=== PATIENT | female | born 1970 | race Caucasian/White ===

== ENCOUNTER 2016-08-19 16:38 | Observation (INO) ==
[2016-08-19 22:09] LABS: Lymphocytes % 23.8 %
[2016-08-19 22:10] LABS: Basophils % 0.5 %; Eosinophils # 0.2 K/mcL (0.0-0.6); Eosinophils % 2.6 %; Immature Granulocytes % 0.2 % (0-4); Lymphocytes # 2.1 K/mcL (0.6-4.6); Mean Corpuscular HGB Conc 26.9 g/dL (31.6-35.5); Mean Platelet Volume 9.6 fL (9.4-12.4); Monocytes # 0.7 K/mcL (0.0-1.3); Neutrophils # 5.7 K/mcL (1.6-8.9); Platelet Count 320 K/mcL (140-400); Red Blood Count 3.88 M/mcL (3.82-4.97); Red Cell Distribution Width 18.7 % (11.5-14.5); Segmented Neutrophils % 64.9 %
[2016-08-19 22:13] LABS: INR 1.3; Prothrombin Time 13.7 Seconds (9.4-12.1)
[2016-08-19 22:15] LABS: Activated Partial Thrombo Time 27.6 Seconds (26.0-36.0)
[2016-08-19 22:23] LABS: BUN/Creatinine Ratio 12 (6-26); Blood Urea Nitrogen 10 mg/dL (7-20); Calcium 8.6 mg/dL (8.6-10.8); Carbon Dioxide 21 mEq/L (19-29); Chloride 108 mEq/L (98-109); Glucose 117 mg/dL (70-99); Osmolality,Calculated 286 (280-300); Potassium 3.5 mEq/L (3.5-4.5); Sodium 138 mEq/L (136-145); eGFR For African Americans > 60 (> 60); eGFR For Non-African Americans > 60 (> 60)
[2016-08-19 22:26] LABS: Bilirubin,Urine Small (Negative); Blood,Urine Small (Negative); Clarity,Urine Clear (Clear); Color,Urine Dark Yellow (Yellow); Glucose,Urine (UA) Normal (Normal); Ketones,Urine Negative (Negative); Leukocyte Esterase,Urine Negative (Negative); Nitrite,Urine Negative (Negative); PH,Urine 5.5 pH Units (5.0-8.0); Protein,Urine Trace mg/dL (Neg-Trace); Urobilinogen,Urine Normal (Normal)
[2016-08-19 22:29] LABS: Bacteria,Urine None Seen per hpf (None-Few); Hyaline Casts,Urine None Seen per lpf (None-Few); RBC,Urine 0-3 per hpf (0-3); Squamous Epithelial Cell,Urine Many per lpf (None-Few); WBC,Urine 0-3 per hpf (0-3)
[2016-08-19 22:37] LABS: Amphetamine Screen,Urine Negative ng/mL (Cutoff=1000); Barbiturate Screen,Urine Negative ng/mL (Cutoff=200); Benzodiazepines Screen,Urine Negative ng/mL (Cutoff=200); Cannabinoid Screen,Urine Negative ng/mL (Cutoff = 50); Cocaine Screen,Urine Negative ng/mL (Cutoff= 300); Opiate Screen,Urine Negative ng/mL (Cutoff=300); Phencyclidine Screen,Urine Negative ng/mL (Cutoff=25)
--- NOTE | 2016-08-19 22:37 | Emergency Department Note ---
Disposition Clinical Impression: Left-sided weakness Transient cerebral ischemia Qualifiers: Transient cerebral ischemia type: unspecified Qualified Code(s): G45.9 - Transient cerebral ischemic attack, unspecified Disposition: Admitted As Inpatient Referrals: NO,PCP [Primary Care Provider] - Forms: ED Satisfaction Letter Neuro HPI - General Chief Complaint: ED Neuro Symptoms/Deficit Stated Complaint: left side weakness Time Seen by Provider: 08/19/16 20:59 Source: patient, family Limitations: physical limitation Nursing Notes Reviewed: Yes Vital Signs Reviewed: Yes - History of Present Illness HPI Narrative: She is a 45-year-old female who was seen here several days ago they activated stroke alert [facility] neurology was involved. They state she had atypical symptoms of a stroke did not recommend TPA. Patient's symptoms resolved she left AGAINST MEDICAL ADVICE. She states today she was working at [employer] and cannot lift up a bucket of 24 pieces of chicken. She was unable to perform her work without physical limitations so she came back in to be evaluated again. She states her left arm weakness has never resolved since she left the ER over 48 hours ago. She did not have any deficits in her face or in her left lower extremity Location: left arm History of same: Yes Severity: mild Quality: weakness Symptoms Improving: No Context: gradual onset (2 days ago) On Anticoagulants: No Associated symptoms: Reports: denies other symptoms Treatments Prior to Arrival: none - Related Data Home Medications: Previous Rx's Medication Instructions Recorded Cefdinir [Omnicef] 300 mg PO BID #20 capsule 07/17/16 Allergies/Adverse Reactions: Allergies Allergy/AdvReac Type Severity Reaction Status Date / Time Penicillins Allergy Hives Verified 08/19/16 17:00 All systems ED: reviewed and negative except as stated. Constitutional: Denies: fever, chills Cardiovascular: Denies: chest pain, palpitations, dyspnea on exertion Respiratory: Denies: cough, dyspnea, wheezes Gastrointestinal: Denies: abdominal pain, nausea Past Medical History - Past Medical History Medical history: Reports: GERD Psychiatric history: Reports: no psych history GENERAL [place] history: Reports: no GENERAL [place] history - Social History Smoking Status: Current every day smoker Smokeless Tobacco Status: No Alcohol use: Reports: none Drug use: Reports: none Physical Exam - General Limitations: physical limitation General appearance: alert, in no apparent distress - Head Head exam: atraumatic, normocephalic, normal inspection - Eye Eye exam: Present: normal appearance, PERRL, EOMI - ENT ENT exam: normal exam, normal oropharynx, mucous membranes moist - Neck Neck exam: Present: normal inspection, full ROM, trachea midline - Chest Chest inspection: Present: normal inspection, symmetric chest wall rise - Respiratory Respiratory exam: Present: normal lung sounds bilaterally - Cardiovascular Cardiovascular exam: Present: regular rate, normal rhythm, normal heart sounds - Abdominal Exam Abdominal exam: Present: soft, Non-Tender. Absent: tenderness, distention, guarding, rebound, rigidity - Neurological Exam Neurological exam: Present: alert, oriented X3, CN II-XII intact, normal gait - Expanded Neurological Exam Patient oriented to: Present: person, place, time Cerebellar function: normal gait Motor strength - LUE: 4/5 Sensory exam upper extremity: light touch: Normal Sensory exam lower extremity: light touch: Normal DTR: brachioradialis (L): 2+, brachioradialis (R): 2+ Coma Scale Eye Opening: Spontaneous Coma Scale Motor Response: Obeys Commands Coma Scale Verbal Response: Oriented Coma Scale Total: 15 - Psychiatric Psychiatric exam: Present: normal affect, normal mood - Skin Skin exam: Present: warm, dry, intact, normal color Course Vital Signs Temperature 98.0 F 08/19/16 17:00 Pulse Rate 97 08/19/16 17:00 Respiratory Rate 18 08/19/16 17:00 Blood Pressure 133/83 08/19/16 17:00 O2 Sat by Pulse Oximetry 100 08/19/16 17:00 Temperature 98.0 F 08/19/16 17:00 Pulse Rate 97 08/19/16 17:00 Respiratory Rate 18 08/19/16 17:00 Blood Pressure 133/83 08/19/16 17:00 O2 Sat by Pulse Oximetry 100 08/19/16 17:00 Oxygen Delivery Oxygen Delivery Room Air Neuro Symptoms/Deficit - Differential Diagnosis Likely: cerebrovascular accident, subarachnoid hemorrhage, transient cerebral ischemia, peripheral neuropathy, convulsions - Medical Records Medical records reviewed: Yes I reviewed the patient's medical records. - Lab Data Lab results reviewed: Yes I reviewed the patient's lab results. Result diagrams: 08/19/16 21:48 08/19/16 21:48 Lab Results 03/06/17 03/06/17 03/06/17 Range/Units 21:34 21:48 21:48 WBC 8.7 (4.3-11.1) K/mcL RBC 3.88 (3.82-4.97) M/mcL Hgb 7.0 L (11.5-15.4) g/dL Hct 26.0 L (35.3-44.9) % MCV 67.0 L (83.0-100.0) fL MCH 18.0 L (28.0-33.3) pg MCHC 26.9 L (31.6-35.5) g/dL RDW 18.7 H (11.5-14.5) % Plt Count 320 (140-400) K/mcL MPV 9.6 (9.4-12.4) fL Immature Gran % 0.2 (0-4) % Seg Neutrophils % 64.9 % Lymphocytes % 23.8 % Monocytes % 8.0 % Eosinophils % 2.6 % Basophils % 0.5 % Neutrophils # 5.7 (1.6-8.9) K/mcL Lymphocytes # 2.1 (0.6-4.6) K/mcL Monocytes # 0.7 (0.0-1.3) K/mcL Eosinophils # 0.2 (0.0-0.6) K/mcL Basophils # 0.0 (0.0-0.2) K/mcL Platelet Estimate Normal (Normal) Hypochromasia Present A (Not Present) Anisocytosis 2+ A (Not Present) Microcytosis Present A (Not Present) PT 13.7 H (9.4-12.1) Seconds INR 1.3 APTT 27.6 (26.0-36.0) Seconds Sodium (136-145) mEq/L Potassium (3.5-4.5) mEq/L Chloride (98-109) mEq/L Carbon Dioxide (19-29) mEq/L BUN (7-20) mg/dL Creatinine (0.57-1.11) mg/dL Est GFR ( Amer) (> 60) Est GFR (Non-Af Amer) (> 60) BUN/Creatinine Ratio (6-26) Glucose (70-99) mg/dL POC Glucose 164 H (58-89) Calculated Osmolality (280-300) Calcium (8.6-10.8) mg/dL Troponin I (0-0.03) ng/mL Urine Color (Yellow) Urine Clarity (Clear) Urine pH (5.0-8.0) pH Units Ur Specific [place] (1.010-1.025) Urine Protein (Neg-Trace) mg/dL Urine Glucose (UA) (Normal) mg/dL Urine Ketones (Negative) mg/dL Urine Blood (Negative) Urine Nitrite (Negative) Urine Bilirubin (Negative) Urine Urobilinogen (Normal) mg/dL Ur Leukocyte Esterase (Negative) Urine Microscopic RBC (0-3) per hpf Urine Microscopic WBC (0-3) per hpf Ur Squamous Epith Cells (None-Few) per lpf Urine Bacteria (None-Few) per hpf Hyaline Casts (None-Few) per lpf Ur Culture Indicated? (NO) Urine Opiates Screen (Blxqcs=481) ng/mL Ur Barbiturates Screen (Jrquvo=956) ng/mL Ur Phencyclidine Scrn (Cutoff=25) ng/mL Ur Amphetamines Screen (Stcrfp=1551) ng/mL U Benzodiazepines Scrn (Bvuuip=311) ng/mL Urine Cocaine Screen (Cutoff= 300) ng/mL U Marijuana (THC) Screen (Cutoff = 50) ng/mL 08/19/16 08/19/16 08/19/16 Range/Units 21:48 21:48 22:17 WBC (4.3-11.1) K/mcL RBC (3.82-4.97) M/mcL Hgb (11.5-15.4) g/dL Hct (35.3-44.9) % MCV (83.0-100.0) fL MCH (28.0-33.3) pg MCHC (31.6-35.5) g/dL RDW (11.5-14.5) % Plt Count (140-400) K/mcL MPV (9.4-12.4) fL Immature Gran % (0-4) % Seg Neutrophils % % Lymphocytes % % Monocytes % % Eosinophils % % Basophils % % Neutrophils # (1.6-8.9) K/mcL Lymphocytes # (0.6-4.6) K/mcL Monocytes # (0.0-1.3) K/mcL Eosinophils # (0.0-0.6) K/mcL Basophils # (0.0-0.2) K/mcL Platelet Estimate (Normal) Hypochromasia (Not Present) Anisocytosis (Not Present) Microcytosis (Not Present) PT (9.4-12.1) Seconds INR APTT (26.0-36.0) Seconds Sodium 138 (136-145) mEq/L Potassium 3.5 (3.5-4.5) mEq/L Chloride 108 (98-109) mEq/L Carbon Dioxide 21 (19-29) mEq/L BUN 10 (7-20) mg/dL Creatinine 0.84 (0.57-1.11) mg/dL Est GFR ( Amer) > 60 (> 60) Est GFR (Non-Af Amer) > 60 (> 60) BUN/Creatinine Ratio 12 (6-26) Glucose 117 H (70-99) mg/dL POC Glucose (58-89) Calculated Osmolality 286 (280-300) Calcium 8.6 (8.6-10.8) mg/dL Troponin I 0.00 (0-0.03) ng/mL Urine Color (Yellow) Urine Clarity (Clear) Urine pH (5.0-8.0) pH Units Ur Specific [place] (1.010-1.025) Urine Protein (Neg-Trace) mg/dL Urine Glucose (UA) (Normal) mg/dL Urine Ketones (Negative) mg/dL Urine Blood (Negative) Urine Nitrite (Negative) Urine Bilirubin (Negative) Urine Urobilinogen (Normal) mg/dL Ur Leukocyte Esterase (Negative) Urine Microscopic RBC (0-3) per hpf Urine Microscopic WBC (0-3) per hpf Ur Squamous Epith Cells (None-Few) per lpf Urine Bacteria (None-Few) per hpf Hyaline Casts (None-Few) per lpf Ur Culture Indicated? (NO) Urine Opiates Screen Negative (Oyuvvd=117) ng/mL Ur Barbiturates Screen Negative (Jbszyi=678) ng/mL Ur Phencyclidine Scrn Negative (Cutoff=25) ng/mL Ur Amphetamines Screen Negative (Tusrfj=3240) ng/mL U Benzodiazepines Scrn Negative (Mhomkb=768) ng/mL Urine Cocaine Screen Negative (Cutoff= 300) ng/mL U Marijuana (THC) Screen Negative (Cutoff = 50) ng/mL 08/19/16 Range/Units 22:21 WBC (4.3-11.1) K/mcL RBC (3.82-4.97) M/mcL Hgb (11.5-15.4) g/dL Hct (35.3-44.9) % MCV (83.0-100.0) fL MCH (28.0-33.3) pg MCHC (31.6-35.5) g/dL RDW (11.5-14.5) % Plt Count (140-400) K/mcL MPV (9.4-12.4) fL Immature Gran % (0-4) % Seg Neutrophils % % Lymphocytes % % Monocytes % % Eosinophils % % Basophils % % Neutrophils # (1.6-8.9) K/mcL Lymphocytes # (0.6-4.6) K/mcL Monocytes # (0.0-1.3) K/mcL Eosinophils # (0.0-0.6) K/mcL Basophils # (0.0-0.2) K/mcL Platelet Estimate (Normal) Hypochromasia (Not Present) Anisocytosis (Not Present) Microcytosis (Not Present) PT (9.4-12.1) Seconds INR APTT (26.0-36.0) Seconds Sodium (136-145) mEq/L Potassium (3.5-4.5) mEq/L Chloride (98-109) mEq/L Carbon Dioxide (19-29) mEq/L BUN (7-20) mg/dL Creatinine (0.57-1.11) mg/dL Est GFR ( Amer) (> 60) Est GFR (Non-Af Amer) (> 60) BUN/Creatinine Ratio (6-26) Glucose (70-99) mg/dL POC Glucose (58-89) Calculated Osmolality (280-300) Calcium (8.6-10.8) mg/dL Troponin I (0-0.03) ng/mL Urine Color Dark Yellow (Yellow) Urine Clarity Clear (Clear) Urine pH 5.5 (5.0-8.0) pH Units Ur Specific [place] 1.030 H (1.010-1.025) Urine Protein Trace (Neg-Trace) mg/dL Urine Glucose (UA) Normal (Normal) mg/dL Urine Ketones Negative (Negative) mg/dL Urine Blood Small H (Negative) Urine Nitrite Negative (Negative) Urine Bilirubin Small H (Negative) Urine Urobilinogen Normal (Normal) mg/dL Ur Leukocyte Esterase Negative (Negative) Urine Microscopic RBC 0-3 (0-3) per hpf Urine Microscopic WBC 0-3 (0-3) per hpf Ur Squamous Epith Cells Many H (None-Few) per lpf Urine Bacteria None Seen (None-Few) per hpf Hyaline Casts None Seen (None-Few) per lpf Ur Culture Indicated? NO (NO) Urine Opiates Screen (Gxqgpq=750) ng/mL Ur Barbiturates Screen (Mgqtyr=252) ng/mL Ur Phencyclidine Scrn (Cutoff=25) ng/mL Ur Amphetamines Screen (Hsdsek=0620) ng/mL U Benzodiazepines Scrn (Ohzdxn=246) ng/mL Urine Cocaine Screen (Cutoff= 300) ng/mL U Marijuana (THC) Screen (Cutoff = 50) ng/mL - Radiology Data Radiology results reviewed: Yes I reviewed the patient's radiology results. - EKG Data EKG attestation: Yes I reviewed and interpreted this EKG. EKG shows normal: sinus rhythm Rate: normal Rhythm: NSR [place]/QRS: normal Interpretation: no acute changes TPA Checklist - LKW: 3-4.5 hrs Add. Contraindications Patient/family understanding: The patient/family members have been counseled and understood the risk, benefit , and alternatives of treatment.
[2016-08-19 22:44] LABS: Hypochromasia Present (Not Present)
[2016-08-19 22:47] LABS: Anisocytosis 2+ (Not Present); Microcytosis Present (Not Present); Platelet Estimate Normal (Normal)
[2016-08-19] MEDS ORDERED: Aspirin 325 MG TABLET PO ONE (23:05)
[2016-08-19 23:17] LABS: % Iron Saturation 3 % (15-50); Iron 11 mcg/dL (50-170); Transferrin 305 mg/dL (180-382)
[2016-08-20] MEDS ORDERED: *HR* Morphine 2 MG/ML SYRINGE IVP PRN (00:56)
[2016-08-20] MEDS ORDERED: *HR* OxyCODONE Immed Rel 5 MG TABLET PO PRN (00:56)
[2016-08-20] MEDS ORDERED: *HR* Promethazine 25 MG/ML VIAL IVP PRN (00:56)
[2016-08-20] MEDS ORDERED: Acetaminophen 325 MG TABLET PO PRN (00:56)
[2016-08-20] MEDS ORDERED: Naloxone 0.4 MG/ML INJ IVP PRN (00:56)
[2016-08-20] MEDS ORDERED: 0.9 % Sodium Chloride 1,000 ML IVC SCH (01:00)
[2016-08-20] MEDS ORDERED: Benzonatate 100 MG CAPSULE PO PRN (01:13)
[2016-08-20] MEDS ORDERED: Ipratropium/Albuterol Neb 3 ML IH PRN (01:13)
--- NOTE | 2016-08-20 01:20 | Internal Med History&Physical ---
Date of Encounter: 08/20/16 Time of Encounter: 01:00 Assessment and Plan (1) Focal neurological deficit, onset greater than 24 hours Current visit: Yes Status: Acute . (2) Microcytic hypochromic anemia Current visit: Yes Status: Acute . (3) Iron deficiency Current visit: Yes Status: Acute . (4) H/O gastroesophageal reflux (GERD) Current visit: Yes Status: Chronic . (5) Nicotine dependence with nicotine-induced disorder Current visit: Yes Status: Chronic . Qualifiers: Nicotine product type: cigarettes Qualified Code(s): F17.219 - Nicotine dependence, cigarettes, with unspecified nicotine-induced disorders (6) Symptomatic anemia Current visit: Yes Status: Acute . (7) Stroke determined by clinical assessment Current visit: Yes Status: Acute . (8) Left-sided weakness Current visit: Yes Status: Acute . (9) Menstrual bleeding problem Current visit: Yes Status: Chronic .. (10) Chronic blood loss anemia Current visit: Yes Status: Chronic . (11) Conversion disorder with abnormal movement Current visit: Yes Status: Acute . (12) Transient cerebral ischemia Current visit: Yes Status: Acute . Qualifiers: Transient cerebral ischemia type: unspecified Qualified Code(s): G45.9 - Transient cerebral ischemic attack, unspecified (13) Hirsutism Current visit: Yes Status: Chronic . Internal Medicine - H&P: HPI Chief complaint: Left-sided weakness Admitted From: Emergency Dept Plans for Post Hospital Care: Home History of present illness: Ms. Woods is a 45 year old female with significant history of irregular menses, iron deficiency, anemia , GERD, nicotine dependency. The patient was visited and interviewed and examined. The patient is admitted to [facility] via emergency department when she presents to the [employer] [facility] [employer] with complaints of left-sided weakness. The patient presented first on August 18 with similar complaints, so she came back to the emergency department once again be evaluated. She clarified that indeed her left arm weakness from the night before it never fully resolved since she left the emergency department 48 hours earlier. She denied any progression of deficits to involve her head face neck OR opposite extremity. Reported her gait was affected due to tracking of her left leg. She denied any associated fevers chills or sweats with these symptoms. Denied any neck pain headache. Denied any bowel or bladder dysfunction. On August 18 with similar complaints, at that time her presentation activated stroke alert which involved [facility] neurology department. Her symptoms and findings were felt to be atypical of stroke. Therefore TPA was not recommended. He was recommended that the patient be admitted to complete stroke evaluation to include MRI studies. However the patient left AGAINST MEDICAL ADVICE stating that her symptoms had resolved spontaneously. The next day while at work she found that she was unable to lift a bucket of chicken pieces numbering 24 with her left arm. 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 Findings in the ED: Temperature 98.7 respirations 18. BP 133/83. O2 saturation 100% room air. WBC 8.7 hemoglobin 7 platelets 320,000. MCV 67 and MCH 18 MCHC 26.9. RDW 18.7. Differential normal. PT 13.7 INR 1.3 PTT 27.6. Metabolic panel normal. BUN 10 creatinine 0.84. Glucose 117 osmolality 286. Troponin 0.00. Urine drug screen negative. Urinalysis trace protein. Small blood. Small bilirubin. 3 RBC. 3 WBC. Many epithelial cells. Specific gravity greater than 1.03. EKG normal sinus rhythm. No acute ischemic changes CT cervical spine without contrast demonstrated no acute osseous abnormality. Mild left C4 bony neural foraminal narrowing secondary to uncovertebral hypertrophy. Incidental 5 mm hypodense right thyroid nodule noted. CT head scan without contrast demonstrated no acute intracranial abnormality. No evidence for acute infarct, hydrocephalus, hemorrhage, mass effect, midline shift or fluid collection. Orbits, soft tissue and skull benign. Mild left ethmoid mucoperiosteal thickening seen. No layering fluid noted. Mastoid air cells clear. Preliminary impressions suggest concern for this patient of possible CVA/TIA versus demyelinating process versus cervical radiculomyelopathy. However her examination was not consistent with a DOCUMENT REVIEWER lesion with some degree of histrionics apparent. Initial screening studies for most part benign except for significant microcytic hypochromic anemia likely due to long-standing iron deficiency and acute on chronic blood loss. The patient acknowledges history of long-standing anemia and severe irregular menstruation. She has not undergone any comprehensible evaluation or interventions for either issue. Not aware of any inherited bleeding /clotting disorder or family history of such. She will complete a standard rule out for CVA/TIA with appropriate radiographic studies and possible consultants review. The patient has been offered initial intervention for her severe anemia which may include transfusion therapy of packed red blood cells and possibly iron infusion to address the chronic fatigue that may be related to this. The patient remains at risk for further acute clinical decline given that this presenting chief complaint, findings and comorbidities. Workup and treatments will progress comprehensively. Cumulative laboratory and radiographic data base was reviewed, considered and discussed. Pertinent ancillary medical records including ECW and PCI documentation was reviewed and considered. Given the patient's presenting concerns, past medical history, clinical findings and symptoms, she is admitted at this time will undergo further evaluation and disposition. Orders were written as per the computerized physician field recorder system.......................................................................... .................... Consultative opinions will be sought as clinical circumstances justify. Pain management needs will be addressed. Laboratory and radiographic data base will be updated as appropriate. Studies include: PT/INR, APTT, Ddimer, hypercoag panel, UDS, UA, serum HCG, CASSIUS, RF, cardiac injury panel, BNP, CPK, metabolic and hematologic panel, mag, phos, ionized calcium, thyroid panel, lipid profile, A1c, C-pep, CRP, sed rate, blood gas, lactic acid, iron studies, B12, folate, MMA, serologies, etc. Precautions: Aspiration, fall, delirium protocol/surveillance initiated. Telemetry with continuous hemodynamic monitoring and pulse oximetry initiated. Orthostatic vital signs. Empiric antibiotic coverage: pending diagnostics/culture data. Special studies: CT head, CT cervical spine, MRI brain, MRA head and neck, chest x-ray, telemetry, EKG, echocardiogram. Pulmonary toilet: Incentive spirometry. Aerosol bronchodilator, mucolytic, antitussivePRN. Supplemental oxygen. Corticosteroid therapyPRN. CPAP/BiPAP supplemental oxygen deliveryPRN. Aerosol Mucomyst therapyPRN. Fluid and electrolyte repletion efforts will proceed. Careful attention to fluid balance and renal recovery will be emphasized. Avoidance of nephrotoxic exposure and adverse drug drug interaction in the setting of impaired renal function will be monitored closely. Acute coronary syndrome protocol/surveillance initiated. Acute DOCUMENT REVIEWER injury protocol/surveillance initiated. Includes: aspirin, statin. Passive allowance for hypertension and in completion of CVA/TIA workup. Correction of metabolic, electrolyte and acid-base deficits. Swallowing evaluation. Neurologic assessments. NIHSS guidelines. DVT and PUD prophylaxis initiated: PPI therapy, intermittent pneumatic cuffs/ TEDs. Subcutaneous heparin. Early ambulation will be encouraged. Immunization updates recommended. Influenza and pneumococcal vaccinations as part of ongoing preventative healthcare recommendations strongly recommended. Smoking cessation counseling briefly addressed. Patient sepsis nicotine substitution during this hospitalization.. Advanced care directive discussion briefly addressed. Patient does not declare any healthcare restrictions at this time. Cardiovascular risk appraisal and cardiovascular risk reduction efforts will be emphasized. Physical and occupational therapy consulted to evaluate/assess patient's functional capacity and progress mobility as her circumstances permit. Nutrition/dietary education counseling may be considered as circumstances justify. Outpatient medication schedules will be reviewed, confirmed and facilitated as appropriate. Reconciliation of home treatments including adjustments, substitutions and reintroduction into the treatment regimen will address necessary maintenance therapies for chronic pre-existing medical conditions. Plan of care has been reviewed and discussed in detail with the patient. Questions addressed. Hospital course dictated by clinical findings, treatment response and potential consultative interventions. Patient is at low risk for further acute clinical decline due to her presenting chief complaints, findings and comorbid conditions. Condition is serious. Prognosis is guarded. CODE STATUS is full. Past Med Surg Social Fam HX - Past Medical History Source: old records reviewed Medical history: arthritis, GERD (h/o gastric ulcer. 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 irregular and heavy menses w/ clots.) Psychiatric history: no psych history - Past Surgical History Surgical History: , other - Social History Smoking Status: Current every day smoker Packs per day: 1 ppd Smokeless Tobacco Status: No Alcohol use: none Drug use: none Occupational status: employed Current living situation: With Family Activity Level: Independent ambulation, Mostly sedentary Recent Out of Country Travel Within the Last 8 Weeks: No Exposure or Possible Exposure to Illness During Travel: No Internal Medicine - H&P: Meds Ranitidine HCl [Zantac 75] 75 mg PO DAILY 08/20/16 [History] Allergies Penicillins Allergy (Verified 08/19/16 17:00) Hives All Systems PM: A 10-system review of systems was performed and is negative for pertinent findings except as documented above in the HPI. - Constitutional Constitutional: as per HPI, malaise, other, no chills, no fever(s), no night sweats - EENT Eyes: as per HPI, no change in vision, no discharge, no pain, no photophobia Ears: as per HPI, no ear discharge, no ear pain, no tinnitus Nose, mouth and throat: as per HPI, no dysphagia, no nasal discharge, no neck pain, no sore throat - Cardiovascular Cardiovascular ROS IM: as per HPI, no chest pain, no diaphoresis, no dyspnea, no lightheadedness, no palpitations, no syncope - Respiratory Respiratory: as per HPI, no cough, no dyspnea, no wheezing, no excessive phlegm production - Gastrointestinal Gastrointestinal: as per HPI, no abdominal pain, no diarrhea, no hematemesis, no hematochezia, no melena, no nausea, no vomiting - Genitourinary Genitourinary: as per HPI, abnormal menses, other, no change in urinary stream, no dysuria, no flank pain, no hematuria Menstruation: as per HPI, currently menstrual, cycle variable, menses variable, period heavy, other - Musculoskeletal Musculoskeletal ROS IM: as per HPI, no numbness, no tingling - Integumentary Integumentary IM: as per HPI, no rash, no unusual bruising - Neurological Neurological ROS: as per HPI, abnormal gait, focal weakness, other, no confusion , no convulsions, no numbness, no tingling, no tremor(s) - Psychiatric Psychiatric: as per HPI - Endocrine Endocrine IM: as per HPI - Hematologic/Lymphatic Hematologic/Lymphatic: as per HPI, no easy bruising - Allergic/Immunologic Allergic/Immunologic: as per HPI - Constitutional Vitals: Temp Pulse Resp BP Pulse Ox 98.0 F 73 14 129/92 100 08/19/16 17:00 08/19/16 23:27 08/20/16 00:36 08/20/16 00:36 08/19/16 17:00 General appearance: Present: disheveled, mild distress, A&O X 3, obese, answers questions appropriately - Head Head exam: Present: atraumatic, normocephalic - Eye Eye exam: Present: EOMI, PERRL, conjuntiva pink, sclera anicteric Pupils: Present: normal accommodation, PERRL - ENT ENT exam: Present: mucous membranes moist, normal oropharynx - Neck Neck exam general surgery: Present: full ROM, tenderness, supple, trachea midline. Absent: lymphadenopathy, nuchal rigidity - Expanded Neck Exam Neck exam: Present: tenderness (para-cervical, upper back and left shoulder mm.) - Respiratory Respiratory exam: Present: decreased breath sounds, CTAB. Absent: accessory muscle use, rales, rhonchi, wheezes - Cardiovascular Cardiovascular exam: Present: distant heart sounds, RRR, +S1, +S2. Absent: diastolic murmur, gallop, rubs, systolic murmur - GI/Abdominal GI/Abdominal exam: Present: normal bowel sounds, soft, no peritoneal signs. Absent: distended, tenderness - Extremities Exam Extremities exam: Present: warm, radial pulses palpable and symetrical. Absent : calf tenderness, cyanotic, pedal edema - Expanded Upper Extremities Exam General: Present: normal inspection Shoulder exam: Present: normal inspection, tenderness, tenderness over AC joint Upper Arm exam: Present: normal inspection, tenderness Elbow exam: Present: normal inspection, tenderness Forearm wrist exam: Present: normal inspection, tenderness Hand wrist exam: Present: normal inspection, tenderness Vascular exam: Present: normal capillary refill, radial pulse right, radial pulse left. Absent: vascular compromise - Expanded Lower Extremities Exam Hip exam: Present: normal inspection Upper Leg exam: Present: normal inspection Knee exam: Present: normal inspection Lower Leg exam: Present: normal inspection Ankle exam: Present: normal inspection Gait: Present: not tested/not observed - Neurological Exam Neurological exam: Present: alert, CN II-XII intact, oriented X3, no focal deficits, strengths equal and symetr throughout. Absent: pronater drift, facial droop, speech deficit - Psychiatric Psychiatric exam: Present: normal affect, normal mood - Skin Skin exam: Present: dry, intact, warm. Absent: petechiae, rash, urticaria, vesicles Internal Med - H&P Results - Labs CBC & Chem 7: 08/19/16 21:48 08/19/16 21:48 - Impressions Vital Signs Temp Pulse Resp BP Pulse Ox 08/20/16 01:05 98.6 F 75 12 117/81 100 08/20/16 00:36 14 129/92 08/19/16 23:27 73 16 131/82 08/19/16 17:00 98.0 F 97 18 133/83 100 Intake and Output 08/19/16 08/19/16 08/20/16 15:59 23:59 07:59 Other: Weight 66.224 kg 68.1 kg Blood Glucose* 164 Patient Weight 08/20/16 23:59 Weight 68.1 kg Short CBC 08/19/16 Range/Units 21:48 WBC 8.7 (4.3-11.1) K/mcL Hgb 7.0 L (11.5-15.4) g/dL Hct 26.0 L (35.3-44.9) % Plt Count 320 (140-400) K/mcL Neutrophils # 5.7 (1.6-8.9) K/mcL BMP 08/19/16 Range/Units 21:48 Sodium 138 (136-145) mEq/L Potassium 3.5 (3.5-4.5) mEq/L Chloride 108 (98-109) mEq/L Carbon Dioxide 21 (19-29) mEq/L BUN 10 (7-20) mg/dL Creatinine 0.84 (0.57-1.11) mg/dL Glucose 117 H (70-99) mg/dL Calcium 8.6 (8.6-10.8) mg/dL Cardiac Enzymes 08/20/16 08/19/16 Range/Units 01:44 21:48 Troponin I 0.00 0.00 (0-0.03) ng/mL Liver Function 08/20/16 Range/Units 01:44 Total Bilirubin 1.0 (0.2-1.2) mg/dL Direct Bilirubin 0.4 (0.0-0.5) mg/dL AST 13 (5-34) Units/L ALT 8 (0-55) Units/L Alkaline Phosphatase 56 (38-126) Units/L Albumin 3.4 L (3.5-5.0) g/dL Urine 08/19/16 Range/Units 22:21 Urine Color Dark Yellow (Yellow) Urine Clarity Clear (Clear) Urine pH 5.5 (5.0-8.0) pH Units Ur Specific Franklin 1.030 H (1.010-1.025) Urine Protein Trace (Neg-Trace) mg/dL Urine Glucose (UA) Normal (Normal) mg/dL Abnormal lab results Hgb 7.0 g/dL (11.5-15.4) L 08/19/16 21:48 Hct 26.0 % (35.3-44.9) L 08/19/16 21:48 MCV 67.0 fL (83.0-100.0) L 08/19/16 21:48 MCH 18.0 pg (28.0-33.3) L 08/19/16 21:48 MCHC 26.9 g/dL (31.6-35.5) L 08/19/16 21:48 RDW 18.7 % (11.5-14.5) H 08/19/16 21:48 Hypochromasia Present (Not Present) A 08/19/16 21:48 Anisocytosis 2+ (Not Present) A 08/19/16 21:48 Microcytosis Present (Not Present) A 08/19/16 21:48 ESR 39 mm/hr (0-15) H 08/20/16 01:44 PT 13.7 Seconds (9.4-12.1) H 08/19/16 21:48 D-Dimer 634 ng/mLFEU (0-500) H 08/20/16 01:44 Glucose 117 mg/dL (70-99) H 08/19/16 21:48 POC Glucose 164 (58-89) H 08/19/16 21:34 Iron 11 mcg/dL (50-170) L 08/19/16 22:48 % Saturation 3 % (15-50) L 08/19/16 22:48 Albumin 3.4 g/dL (3.5-5.0) L 08/20/16 01:44 Globulin 3.7 g/dL (2.4-3.5) H 08/20/16 01:44 Albumin/Globulin Ratio 0.9 (1.1-2.2) L 08/20/16 01:44 Ur Specific Franklin 1.030 (1.010-1.025) H 08/19/16 22:21 Urine Blood Small (Negative) H 08/19/16 22:21 Urine Bilirubin Small (Negative) H 08/19/16 22:21 Ur Squamous Epith Cells Many per lpf (None-Few) H 08/19/16 22:21 Allergies Allergy/AdvReac Type Severity Reaction Status Date / Time Penicillins Allergy Hives Verified 08/19/16 17:00 Laboratory Results WBC 8.7 K/mcL (4.3-11.1) 08/19/16 21:48 RBC 3.88 M/mcL (3.82-4.97) 08/19/16 21:48 Hgb 7.0 g/dL (11.5-15.4) L 08/19/16 21:48 Hct 26.0 % (35.3-44.9) L 08/19/16 21:48 MCV 67.0 fL (83.0-100.0) L 08/19/16 21:48 MCH 18.0 pg (28.0-33.3) L 08/19/16 21:48 MCHC 26.9 g/dL (31.6-35.5) L 08/19/16 21:48 RDW 18.7 % (11.5-14.5) H 08/19/16 21:48 Plt Count 320 K/mcL (140-400) 08/19/16 21:48 MPV 9.6 fL (9.4-12.4) 08/19/16 21:48 Immature Gran % 0.2 % (0-4) 08/19/16 21:48 Seg Neutrophils % 64.9 % 08/19/16 21:48 Lymphocytes % 23.8 % 08/19/16 21:48 Monocytes % 8.0 % 08/19/16 21:48 Eosinophils % 2.6 % 08/19/16 21:48 Basophils % 0.5 % 08/19/16 21:48 Neutrophils # 5.7 K/mcL (1.6-8.9) 08/19/16 21:48 Lymphocytes # 2.1 K/mcL (0.6-4.6) 08/19/16 21:48 Monocytes # 0.7 K/mcL (0.0-1.3) 08/19/16 21:48 Eosinophils # 0.2 K/mcL (0.0-0.6) 08/19/16 21:48 Basophils # 0.0 K/mcL (0.0-0.2) 08/19/16 21:48 Platelet Estimate Normal (Normal) 08/19/16 21:48 Hypochromasia Present (Not Present) A 08/19/16 21:48 Anisocytosis 2+ (Not Present) A 08/19/16 21:48 Microcytosis Present (Not Present) A 08/19/16 21:48 ESR 39 mm/hr (0-15) H 08/20/16 01:44 PT 13.7 Seconds (9.4-12.1) H 08/19/16 21:48 INR 1.3 08/19/16 21:48 APTT 27.6 Seconds (26.0-36.0) 08/19/16 21:48 Fibrinogen 263 mg/dL (169-393) 08/20/16 01:44 D-Dimer 634 ng/mLFEU (0-500) H 08/20/16 01:44 Sodium 138 mEq/L (136-145) 08/19/16 21:48 Potassium 3.5 mEq/L (3.5-4.5) 08/19/16 21:48 Chloride 108 mEq/L (98-109) 08/19/16 21:48 Carbon Dioxide 21 mEq/L (19-29) 08/19/16 21:48 BUN 10 mg/dL (7-20) 08/19/16 21:48 Creatinine 0.84 mg/dL (0.57-1.11) 08/19/16 21:48 Est GFR ( Amer) > 60 (> 60) 08/19/16 21:48 Est GFR (Non-Af Amer) > 60 (> 60) 08/19/16 21:48 BUN/Creatinine Ratio 12 (6-26) 08/19/16 21:48 Glucose 117 mg/dL (70-99) H 08/19/16 21:48 POC Glucose 164 (58-89) H 08/19/16 21:34 Est Mean Plasma Glucose 85 mg/dl 08/20/16 01:44 Hemoglobin A1c 4.6 % (-5.6) 08/20/16 01:44 Calculated Osmolality 286 (280-300) 08/19/16 21:48 Calcium 8.6 mg/dL (8.6-10.8) 08/19/16 21:48 Phosphorus 3.4 mg/dL (2.3-4.7) 08/20/16 01:44 Magnesium 1.9 mg/dL (1.6-2.6) 08/20/16 01:44 Iron 11 mcg/dL (50-170) L 08/19/16 22:48 % Saturation 3 % (15-50) L 08/19/16 22:48 Transferrin 305 mg/dL (180-382) 08/19/16 22:48 Total Bilirubin 1.0 mg/dL (0.2-1.2) 08/20/16 01:44 Direct Bilirubin 0.4 mg/dL (0.0-0.5) 08/20/16 01:44 Indirect Bilirubin 0.6 mg/dL (0.0-1.2) 08/20/16 01:44 AST 13 Units/L (5-34) 08/20/16 01:44 ALT 8 Units/L (0-55) 08/20/16 01:44 Alkaline Phosphatase 56 Units/L (38-126) 08/20/16 01:44 Troponin I 0.00 ng/mL (0-0.03) 08/20/16 01:44 C-Reactive Protein 2 mg/L (Less than 5) 08/20/16 01:44 Serum Total Protein 7.1 g/dL (6.0-8.3) 08/20/16 01:44 Albumin 3.4 g/dL (3.5-5.0) L 08/20/16 01:44 Globulin 3.7 g/dL (2.4-3.5) H 08/20/16 01:44 Albumin/Globulin Ratio 0.9 (1.1-2.2) L 08/20/16 01:44 Triglycerides 71 mg/dL (< 150) 08/20/16 01:44 Cholesterol 145 mg/dL (< 200) 08/20/16 01:44 LDL Cholesterol, Calc 86 mg/dL (0-99) 08/20/16 01:44 VLDL Cholesterol, Calc 14 mg/dL (< 31) 08/20/16 01:44 HDL Cholesterol 45 mg/dL (40-59) 08/20/16 01:44 Cholesterol/HDL Ratio 3.2 (0-4.9) 08/20/16 01:44 Vitamin B12 532 pg/mL (213-816) 08/20/16 01:44 Folate 12.6 ng/mL (7.0-31.4) 08/20/16 01:44 TSH 0.892 mcIU/mL (0.350-4.840) 08/20/16 01:44 Beta HCG, Quant < 1 mIU/ml (0-4) 08/20/16 01:44 Urine Color Dark Yellow (Yellow) 08/19/16 22:21 Urine Clarity Clear (Clear) 08/19/16 22:21 Urine pH 5.5 pH Units (5.0-8.0) 08/19/16 22:21 Ur Specific Franklin 1.030 (1.010-1.025) H 08/19/16 22:21 Urine Protein Trace mg/dL (Neg-Trace) 08/19/16 22:21 Urine Glucose (UA) Normal mg/dL (Normal) 08/19/16 22:21 Urine Ketones Negative mg/dL (Negative) 08/19/16 22:21 Urine Blood Small (Negative) H 08/19/16 22:21 Urine Nitrite Negative (Negative) 08/19/16 22:21 Urine Bilirubin Small (Negative) H 08/19/16 22:21 Urine Urobilinogen Normal mg/dL (Normal) 08/19/16 22:21 Ur Leukocyte Esterase Negative (Negative) 08/19/16 22:21 Urine Microscopic RBC 0-3 per hpf (0-3) 08/19/16 22:21 Urine Microscopic WBC 0-3 per hpf (0-3) 08/19/16 22:21 Ur Squamous Epith Cells Many per lpf (None-Few) H 08/19/16 22:21 Urine Bacteria None Seen per hpf (None-Few) 08/19/16 22:21 Hyaline Casts None Seen per lpf (None-Few) 08/19/16 22:21 Ur Culture Indicated? NO (NO) 08/19/16 22:21 Urine Opiates Screen Negative ng/mL (Rfxqgp=510) 08/19/16 22:17 Ur Barbiturates Screen Negative ng/mL (Amypgj=047) 08/19/16 22:17 Ur Phencyclidine Scrn Negative ng/mL (Cutoff=25) 08/19/16 22:17 Ur Amphetamines Screen Negative ng/mL (Tkcyad=6728) 08/19/16 22:17 U Benzodiazepines Scrn Negative ng/mL (Qvwuvg=378) 08/19/16 22:17 Urine Cocaine Screen Negative ng/mL (Cutoff= 300) 08/19/16 22:17 U Marijuana (THC) Screen Negative ng/mL (Cutoff = 50) 08/19/16 22:17 Blood Type A POSITIVE 08/19/16 22:48 Antibody Screen NEGATIVE 08/19/16 22:[address] 08/19/16 21:57 IMPRESSION: 1. No acute osseous abnormality of the cervical spine. 2. Mild left C4 bony neural foraminal narrowing secondary to uncovertebral hypertrophy. D/ / Vasquez Osman MD / Vasquez Osman MD Interpreting Provider: Vasquez Osman MD Head CT 08/19/16 21:57 IMPRESSION: No acute intracranial abnormality. D/ / Vasquez Osman MD / Vasquez Osman MD Interpreting Provider: Vasquez Osman MD
[2016-08-20 02:28] LABS: C-Reactive Protein 2 mg/L (Less than 5)
[2016-08-20 02:29] LABS: Albumin 3.4 g/dL (3.5-5.0); Bilirubin,Direct 0.4 mg/dL (0.0-0.5); Bilirubin,Indirect 0.6 mg/dL (0.0-1.2); Magnesium 1.9 mg/dL (1.6-2.6); Phosphorous 3.4 mg/dL (2.3-4.7); Total Protein 7.1 g/dL (6.0-8.3)
[2016-08-20 02:30] LABS: Albumin/Globulin Ratio 0.9 (1.1-2.2); Chol/HDL Ratio 3.2 (0-4.9); Globulin 3.7 g/dL (2.4-3.5)
[2016-08-20 02:48] LABS: Fibrinogen 263 mg/dL (169-393)
[2016-08-20 02:49] LABS: Hemoglobin A1C 4.6 %
[2016-08-20 02:53] LABS: D-Dimer 634 ng/mLFEU (0-500); Thyroid Stimulating Hormone 0.892 mcIU/mL (0.350-4.840)
[2016-08-20 03:08] LABS: Folate 12.6 ng/mL (7.0-31.4)
[2016-08-20] MEDS: *HR* Heparin 5,000 UNIT/ML VIAL SQ SCH ×2 (06:08→14:08)
[2016-08-20] MEDS: Nicotine 21 MG PATCH.TD24 TD SCH (08:51)
[2016-08-20] MEDS: Aspirin 81 MG TAB.CHEW PO SCH (08:53)
--- NOTE | 2016-08-20 14:07 | Electrocardiograph Report ---
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
--- NOTE | 2016-08-20 14:12 | Neurology - Consult Note ---
<Samuel Gupta - Last Filed: 08/20/16 14:48> Date of Encounter: 08/20/16 Time of Encounter: 14:08 Assessment and Plan (1) Left-sided weakness Current Visit: Yes Status: Acute Patient has poor cooperation with muscle strength testing. She states she cannot lift her LLE but was able to and had equal strength to her right. Poor cooperation with LUE evaluation. MRI and MRA negative. She has had no fevers, ascending or descending paraesthesias, no glove or stocking paraesthesias, no hyperreflexia or flaccidity. The patient's "weakness" was invoked after she felt a "pop" in her left hip. She has tenderness to her left hip. Symptoms have been present >24 hours without signs of true CVA noted on MRI. (2) H/O gastroesophageal reflux (GERD) Current Visit: Yes Status: Chronic History of Present Illness Chief complaint: Left sided weakness HPI: Ms. Woods is a 45 year old female initially complaining of left sided weakness that began 2 days ago after the patient was moving to pick something off the floor and felt a "pop" in her left hip which apparently cause her to have severe left sided weakness and pain. Patient states she was unable to ambulate. She then came to [facility] ED where she had a stroke alert called. [facility] neurology noted that this was unlikely a CVA and recommended against lytics. She then decided to sign out AMA because she was afraid she would lose her job. The patient states that the next day while at work she was unable to lift her LUE due to pain and weakness. The patient was instructed by her boss to come to the ED. She was admitted which revealed negative MRI for CVA, MRA of head and neck that were negative for acute process. The patient states that she still is experiencing some left of weakness in her LLE and mild in her LUE. No other complaints at this time. Past Med Surg Social Fam HX - Past Medical History Attestation: Yes The following information was validated with the patient. Source: patient, old records reviewed Medical history: arthritis, GERD (h/o gastric ulcer. 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 irregular and heavy menses w/ clots.) Psychiatric history: no psych history - Past Surgical History Surgical History: , other - Social History Smoking Status: Current every day smoker Packs per day: 1 ppd Smokeless Tobacco Status: No Alcohol use: none Drug use: none Medications and Allergies Ranitidine HCl [Zantac 75] 75 mg PO DAILY 08/20/16 [History] Allergies Penicillins Allergy (Verified 08/19/16 17:00) Hives All Systems: A 10-system review of systems was performed and is negative for pertinent findings except as documented above in the HPI. - Neurological Neurological ROS: sensory deficit, weakness Physical Examination - Vital Signs Vital Signs: Initial Vital Signs Temp Pulse Resp BP Pulse Ox 98.0 F 97 18 133/83 100 08/19/16 17:00 08/19/16 17:00 08/19/16 17:00 08/19/16 17:00 08/19/16 17:00 - Constitutional General appearance: comfortable - Neurologic Detailed motor examination: full strength in all major muscle groups Motor examination - right side: 5/5: deltoids, biceps, triceps, wrist flexion, wrist extension, high frequency mill operator, hip flexors, tibialis Anterior, quadriceps, toe extension (EHL), plantarflexion Motor examination - left side: 4/5: high frequency mill operator, 5/5: deltoids, biceps, triceps, wrist flexion, wrist extension, hip flexors, quadriceps, tibialis Anterior, toe extension (EHL), plantarflexion Detailed sensory examination: intact Reflexes: Biceps: 2+, Patella: 2+ Mental Status Examination: awake, alert, oriented to person, oriented to place, oriented to time, follows commands appropriately, answers questions appropriately, no agnosia, no aphasia, no aproxia Cranial nerve examination: PERRL, EOMI, visual biancih intact, corneal reflexes brisk symmetrically, sensory to face intact, mastication intact, no facial asymmetry is present, no dysarthria, hearing is intact symmetrically, soft palate elevates bilaterally upon phonation, gag reflex intact, flexes SCM and trapezius muscles symmetrically with full power, tongue protrudes midline, no atrophy or facial fasiculations present Cerebellar examination: no dysmetria, performs finger to nose and heel to [place] symmetrically without ataxia, no truncal ataxia, no difficulty with rapid alternating movements Results - Laboratory Findings CBC and BMP: 08/19/16 21:48 08/19/16 21:48 Abnormal lab findings: Abnormal lab results Hgb 7.0 g/dL (11.5-15.4) L 08/19/16 21:48 Hct 26.0 % (35.3-44.9) L 08/19/16 21:48 MCV 67.0 fL (83.0-100.0) L 08/19/16 21:48 MCH 18.0 pg (28.0-33.3) L 08/19/16 21:48 MCHC 26.9 g/dL (31.6-35.5) L 08/19/16 21:48 RDW 18.7 % (11.5-14.5) H 08/19/16 21:48 Hypochromasia Present (Not Present) A 08/19/16 21:48 Anisocytosis 2+ (Not Present) A 08/19/16 21:48 Microcytosis Present (Not Present) A 08/19/16 21:48 ESR 39 mm/hr (0-15) H 08/20/16 01:44 PT 13.7 Seconds (9.4-12.1) H 08/19/16 21:48 D-Dimer 634 ng/mLFEU (0-500) H 08/20/16 01:44 Glucose 117 mg/dL (70-99) H 08/19/16 21:48 POC Glucose 164 (58-89) H 08/19/16 21:34 Iron 11 mcg/dL (50-170) L 08/19/16 22:48 % Saturation 3 % (15-50) L 08/19/16 22:48 Albumin 3.4 g/dL (3.5-5.0) L 08/20/16 01:44 Globulin 3.7 g/dL (2.4-3.5) H 08/20/16 01:44 Albumin/Globulin Ratio 0.9 (1.1-2.2) L 08/20/16 01:44 Ur Specific Hubbard 1.030 (1.010-1.025) H 08/19/16 22:21 Urine Blood Small (Negative) H 08/19/16 22:21 Urine Bilirubin Small (Negative) H 08/19/16 22:21 Ur Squamous Epith Cells Many per lpf (None-Few) H 08/19/16 22:21 - Attending Attestation I examined this patient and my medical decision-making was reviewed with the Resident Physician. I agree with the documented findings, disposition and treatment plan as described except to the extent set forth below. Consult Discharge Plan - Plan Referrals: NO,PCP [Primary Care Provider] - <Antonina Mehta I - Last Filed: 08/20/16 16:30> Date of Encounter: 08/20/16 History of Present Illness HPI: Ms. Woods is a 45 year old female All Systems: A 10-system review of systems was performed and is negative for pertinent findings except as documented above in the HPI. Physical Examination - Vital Signs Vital Signs: Initial Vital Signs Temp Pulse Resp BP Pulse Ox 98.0 F 97 18 133/83 100 08/19/16 17:00 08/19/16 17:00 08/19/16 17:00 08/19/16 17:00 08/19/16 17:00 Results - Laboratory Findings CBC and BMP: 08/19/16 21:48 08/19/16 21:48 Abnormal lab findings: Abnormal lab results Hgb 7.0 g/dL (11.5-15.4) L 08/19/16 21:48 Hct 26.0 % (35.3-44.9) L 08/19/16 21:48 MCV 67.0 fL (83.0-100.0) L 08/19/16 21:48 MCH 18.0 pg (28.0-33.3) L 08/19/16 21:48 MCHC 26.9 g/dL (31.6-35.5) L 08/19/16 21:48 RDW 18.7 % (11.5-14.5) H 08/19/16 21:48 Hypochromasia Present (Not Present) A 08/19/16 21:48 Anisocytosis 2+ (Not Present) A 08/19/16 21:48 Microcytosis Present (Not Present) A 08/19/16 21:48 ESR 39 mm/hr (0-15) H 08/20/16 01:44 PT 13.7 Seconds (9.4-12.1) H 08/19/16 21:48 D-Dimer 634 ng/mLFEU (0-500) H 08/20/16 01:44 Glucose 117 mg/dL (70-99) H 08/19/16 21:48 POC Glucose 164 (58-89) H 08/19/16 21:34 Iron 11 mcg/dL (50-170) L 08/19/16 22:48 % Saturation 3 % (15-50) L 08/19/16 22:48 Albumin 3.4 g/dL (3.5-5.0) L 08/20/16 01:44 Globulin 3.7 g/dL (2.4-3.5) H 08/20/16 01:44 Albumin/Globulin Ratio 0.9 (1.1-2.2) L 08/20/16 01:44 Ur Specific Hubbard 1.030 (1.010-1.025) H 08/19/16 22:21 Urine Blood Small (Negative) H 08/19/16 22:21 Urine Bilirubin Small (Negative) H 08/19/16 22:21 Ur Squamous Epith Cells Many per lpf (None-Few) H 08/19/16 22:21
--- NOTE | 2016-08-20 19:14 | Internal Med Progress Note ---
Date of Encounter: 08/20/16 Time of Encounter: 10:00 - Assessment and plan (1) Iron deficiency Current Visit: Yes Status: Acute Assessment and plan: Due to chronic heavy menstrual period. Will place iron supplement. Follow-up H &H, transfusion as needed. (2) Left-sided weakness Current Visit: Yes Status: Acute Assessment and plan: Etiology is undetermined. Improved now. MRI and MRA negative, less likely stroke. Neurology consult appreciated. (3) Microcytic hypochromic anemia Current Visit: Yes Status: Acute Assessment and plan: Tracie deficiency will give iron pills. 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 Her past medical history is significant for GERD, anemia. Patient was seen and examined. States her weakness has improved and that she can move her arm on the leg without weakness. MRI and MRA negative. Neurology consult appreciated. We will continue current treatment. Patient has CVA or iron deficiency anemia due to heavy menstrual periods. We will closely follow H &H. Patient to need to follow up with TURNING AND BEADING MACHINE OPERATOR as outpatient. Patient did complain of left calf pain, will place THE DOPPLER TO RULE OUT DVT. - Constitutional Vitals: Temp Pulse Resp BP Pulse Ox 98.8 F 90 16 135/68 99 08/20/16 07:00 08/20/16 15:00 08/20/16 15:00 08/20/16 15:00 08/20/16 11:42 General appearance: Present: mild distress, A&O X 3, obese, answers questions appropriately - Head Head exam: Present: atraumatic, normocephalic - Eye Eye exam: Present: PERRL, conjuntiva pink, sclera anicteric Pupils: Present: PERRL - Neck Neck exam general surgery: Present: supple, trachea midline. Absent: lymphadenopathy - Respiratory Respiratory exam: Present: CTAB. Absent: accessory muscle use, rales, rhonchi, wheezes - Cardiovascular Cardiovascular exam: Present: RRR, +S1, +S2. Absent: diastolic murmur, gallop, rubs, systolic murmur - GI/Abdominal GI/Abdominal exam: Present: normal bowel sounds, soft, no peritoneal signs. Absent: distended, tenderness - Extremities Exam Extremities exam: Present: warm, radial pulses palpable and symetrical. Absent : calf tenderness, cyanotic, pedal edema - Neurological Exam Neurological exam: Present: CN II-XII intact, oriented X3, no focal deficits. Absent: pronater drift, facial droop, speech deficit - Skin Skin exam: Present: dry, intact Internal Medicine: Result - Labs CBC & Chem 7: 08/19/16 21:48 08/19/16 21:48 Labs: Cardiac Enzymes 08/20/16 08/20/16 08/20/16 Range/Units 01:44 09:11 13:49 Troponin I 0.00 0.00 0.00 (0-0.03) ng/mL Liver Function 08/20/16 Range/Units 01:44 Total Bilirubin 1.0 (0.2-1.2) mg/dL Direct Bilirubin 0.4 (0.0-0.5) mg/dL AST 13 (5-34) Units/L ALT 8 (0-55) Units/L Alkaline Phosphatase 56 (38-126) Units/L Albumin 3.4 L (3.5-5.0) g/dL - ABG Interpretation ABG results: PT/INR, D-dimer PT 13.7 Seconds (9.4-12.1) H 08/19/16 21:48 D-Dimer 634 ng/mLFEU (0-500) H 08/20/16 01:44 - Impressions Impressions Brain MRI 08/20/16 07:00 IMPRESSION: Normal MRI of the brain. D/ / Jeffrey Marshall MD / Jeffrey Marshall MD Interpreting Provider: Jeffrey Marshall MD Head MRA 08/20/16 07:00 IMPRESSION: No flow-limiting stenosis of the cervical vertebral or carotid arteries. No intracranial flow-limiting stenosis or aneurysm. D/ / 08/20/2016 11:21:06 Parish Vaca MD / kiana Interpreting Provider: Parish Vaca MD Neck MRA 08/20/16 07:00 IMPRESSION: No flow-limiting stenosis of the cervical vertebral or carotid arteries. No intracranial flow-limiting stenosis or aneurysm. D/ / 08/20/2016 11:21:06 Parish Vaca MD / kiana Interpreting Provider: Parish Vaca MD - VTE Documentation of Mechanical Device: Graduated compression elastic hosiery Consult Discharge Plan - Plan Referrals: NO,PCP [Primary Care Provider] -
[2016-08-20] MEDS ORDERED: GI Cocktail 40 ML EACH PO ONE (22:48)
[2016-08-21 05:26] LABS: Basophils % 0.5 %; Eosinophils # 0.2 K/mcL (0.0-0.6); Eosinophils % 2.7 %; Hematocrit 25.1 % (35.3-44.9); Immature Granulocytes % 0.3 % (0-4); Lymphocytes # 1.7 K/mcL (0.6-4.6); Lymphocytes % 22.9 %; Mean Corpuscular HGB Conc 27.9 g/dL (31.6-35.5); Mean Corpuscular Hemoglobin 18.9 pg (28.0-33.3); Mean Corpuscular Volume 67.7 fL (83.0-100.0); Mean Platelet Volume 10.7 fL (9.4-12.4); Monocytes # 0.6 K/mcL (0.0-1.3); Monocytes % 8.6 %; Neutrophils # 4.8 K/mcL (1.6-8.9); Platelet Count 349 K/mcL (140-400); Red Blood Count 3.71 M/mcL (3.82-4.97); Red Cell Distribution Width 18.6 % (11.5-14.5)
[2016-08-21 05:57] LABS: BUN/Creatinine Ratio 14 (6-26); Blood Urea Nitrogen 12 mg/dL (7-20); Calcium 8.2 mg/dL (8.6-10.8); Carbon Dioxide 22 mEq/L (19-29); Chloride 110 mEq/L (98-109); Glucose 93 mg/dL (70-99); Osmolality,Calculated 287 (280-300); Potassium 3.9 mEq/L (3.5-4.5); Sodium 139 mEq/L (136-145); eGFR For African Americans > 60 (> 60); eGFR For Non-African Americans > 60 (> 60)
[2016-08-21 06:12] LABS: Anisocytosis 1+ (Not Present); Microcytosis Present (Not Present); Platelet Estimate Normal (Normal)
[2016-08-21 06:13] LABS: Hypochromasia Present (Not Present); Large Platelets Present (Not Present)
[2016-08-21 06:51] VITALS: BP 132/81
[2016-08-21] MEDS: Nicotine 21 MG PATCH.TD24 TD SCH (08:46)
[2016-08-21] MEDS: Aspirin 81 MG TAB.CHEW PO SCH (08:47)
--- NOTE | 2016-08-21 09:20 | ECHO - Doppler Report ---
Echo with Saline Contrast Name: Berenice Woods Date of Study: 08/20/2016 Date: 1970 Ht: 68.0 in Medical Record#: [id number] Age: 45 Wt: 150.0 lb Gender: Female BSA: 1.81 Order #: [id number] Location: [facility] Room #: 2NE29 Reading Physician: Florence Li DO Commercial Loan Processor: Felecia Harry Ordering Physician: Amilcar Sun MD Primary Physician: None Indications: Acute left sided weakness, CVA? Impressions: LVEF 60%. Normal left ventricular size and systolic function. There is evidence of mild diastolic dysfunction of the left ventricle. Normal right ventricular size and function. No significant valvular dysfunction. No pulmonary hypertension. No PFO with saline contrast. Left Ventricular Wall Motion: Rest Echo Findings All wall segments showed normal motion. Findings: Study Quality * Technically adequate exam. ECG Findings * Normal sinus rhythm. Left Ventricle * LVEF 60%. * Normal LV chamber size, wall thickness and function. * Mild left ventricular diastolic dysfunction. Mitral Valve * Normal mitral valve structure. * No mitral stenosis. * No mitral regurgitation. Aortic Valve * No aortic regurgitation. * Trileaflet aortic valve. * Normal aortic valve structure. * No aortic stenosis. Tricuspid Valve * Normal tricuspid valve structure. * Trace tricuspid regurgitation. * Estimated RA pressure is 3 mmHg. Pulmonic Valve * Pulmonic valve is not well visualized. * No pulmonic stenosis. * No pulmonic regurgitation. Pulmonary Artery * Pulmonary artery not well visualized. Right Ventricle * Normal right ventricular structure and function. Right Atrium * Normal right atrial size. Left Atrium * Moderately dilated left atrium. Interatrial Septum * No evidence of PFO by color Doppler. * No evidence of PFO with agitated saline contrast. Pericardium * There is no pericardial effusion present. IVC * Normal IVC dimensions and inspiratory collapse. Aorta * Normally sized aortic root. History History of Smoking Years 5 Packs 0.5 Family History of CAD Contrast: Agitated saline 20 ml. Measurements: BP: 135/ 68 2D Normal Values IVSd: 1.20 cm 0.6 - 1.0 cm LVIDd: 4.50 cm 3.7 - 5.6 cm LVPWd: 1.20 cm 0.6 - 1.1 cm LVIDs: 2.60 cm 1.5 - 3.6 cm AO: 2.40 cm < 4.0 cm LA: 3.80 cm 2.0 - 4.0cm %FS: 42.20 cm >25 % LA volume: 68 Mitral Valve Peak E:1.02 m/sec Peak A:1.14 m/sec E/A Ratio:0.9 Peak E' Lat Jeff:8.09 cm/s Peak E' Med Jeff:6.73 cm/s E/E' Lat Ratio:12.6 E/E' Med Ratio:15.2 Tricuspid Valve TV Regurg Peak Grad: 12.00mmHg TV Regurg Peak Jeff: 1.70m/sec Updated by Florence Li on 08/21/2016 9:14:15 AM electronically signed on 08/21/2016 9:15:08 AM with status of Final Wall Motion Torre: 1=Normal, 2=Hypokinesis, 3=Akinesis, 4=Dyskinesis, 5=Aneurysmal, 6=Hyperkinetic, X=Not Visualized (Blank)=Missing
--- NOTE | 2016-08-21 13:49 | Discharge Summary ---
Date of Encounter: 08/21/16 Time of Encounter: 13:00 - Discharge Diagnosis (1) Iron deficiency Priority: Primary Status: Acute (2) Left-sided weakness Priority: Primary Status: Acute (3) Microcytic hypochromic anemia Priority: Primary Status: Acute (4) Chronic blood loss anemia Priority: Primary Status: Chronic (5) H/O gastroesophageal reflux (GERD) Priority: Secondary Status: Chronic (6) Menstrual bleeding problem Priority: Secondary Status: Chronic (7) DVT prophylaxis Priority: Secondary Status: Acute - Discharge Medications Prescriptions: Ferrous Sulfate 325 mg PO DAILY@0800 #30 tablet Home Medications: Ranitidine HCl [Zantac 75] 75 mg PO DAILY 08/20/16 [History] Ferrous Sulfate 325 mg PO DAILY@0800 #30 tablet 08/21/16 [Rx] Allergies/Adverse Reactions: Allergies Penicillins Allergy (Verified 08/19/16 17:00) Hives Procedures/tests Complete & Pending: Procedures Performed prior 72 hours Category Date Time Status MR angio head wo con [MR] Routine MRI 08/20/16 07:00 Draft MR angio neck wo/w con [MR] Routine MRI 08/20/16 07:00 Draft MR head/brain wo con [MR] Routine MRI 08/20/16 07:00 Completed ECG 12 lead ECG [ECG] AM 0600 Y 08/20/16 06:00 Completed EV echocardiogram Routine Y 08/20/16 01:09 Completed Venous Doppler [EV venous imaging LE LT] Routine Y 08/20/16 12:46 Completed - Notes to Outpatient Provider Patient has severe iron deficiency anemia. Ferrous sulfate 325 mg by mouth daily added. Please follow-up her hemoglobin and iron level Date of admission: 08/19/16 23:42 Primary care physician: PCP NO Consults: 08/20/16 00:56 Consult to Occupational Therapy [CONS] Routine Comment: Evaluate, develop and implement POC Consult to Physical Therapy [CONS] Routine Comment: Evaluate, develop and implement POC 08/20/16 01:09 Consult to Nutrition [CONS] Routine Comment: Consulting Provider: NUTRITION Reason for Dietary Consult: MST Score 08/20/16 02:43 Consult to Speech Therapy [CONS] Routine Comment: Evaluate, develop and implement POC Reason for Consult: Did not pass nursing swallow evaluation Call Completed: No 08/20/16 12:39 Consult to Neurology [CONS] Routine Consulting Provider: Neurology [facility] Reason for Consult: Left side weakness Call Completed: Yes Discharging clinician: Arley Chen Anticipated date of discharge: 08/21/16 - Patient Status Disposition: Home, Self-Care Condition: Good Functional capacity at discharge: independent ambulation Overall status at discharge: patient is progressing back to baseline - Discharge Instructions Follow Up With: Nithya Brandt DO [Resident] - 08/26/16 2:30 pm - Diet and Activity Activity: increase activity as tolerated Diet: advance to your usual diet Interval History: She is a 45-year-old female who was seen here several days ago they activated stroke alert [facility] neurology was involved. They state she had atypical symptoms of a stroke did not recommend TPA. Patient's symptoms resolved she left AGAINST MEDICAL ADVICE. 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 She was unable to perform her work without physical limitations so she came back in to be evaluated again. She states her left arm weakness has never resolved since she left the ER over 48 hours ago. She did not have any deficits in her face or in her left lower extremity Hospital course: Ms. Woods is a 45 year old female admitted for left hand weakness. Patient was placed on cardiac monitoring. MRI has been done, which is negative for stroke. Neurology consult was called, not consider patient has neurology problem. Patient's symptoms has improved. She was severe anemia with iron deficiency, most likely due to heavy menstrual period. Patient was placed on iron pills and will follow-up with ROLL CLAMP OPERATOR as outpatient. Patient was seen and examined. She is awake alert, oriented 3. Vitals are stable. No significant neuro deficit. Patient is stable to discharge home, she will follow up with PCP as outpatient for further examination/workup. Patient will be given 5 days work excuse. - Time Spent with Patient Total time spent providing and/or coordinating discharge services: 25 minute Less than 30 minutes - Constitutional Vitals: Temp Pulse Resp BP Pulse Ox 98 F 71 16 132/81 99 08/21/16 06:48 08/21/16 06:48 08/21/16 06:48 08/21/16 06:48 08/21/16 06:48 General appearance: Present: disheveled, mild distress, A&O X 3, obese, answers questions appropriately - Head Head exam: Present: atraumatic, normocephalic - Eye Eye exam: Present: PERRL, conjuntiva pink, sclera anicteric Pupils: Present: PERRL - Neck Neck exam general surgery: Present: supple, trachea midline. Absent: lymphadenopathy - Respiratory Respiratory exam: Present: CTAB. Absent: accessory muscle use, rales, rhonchi, wheezes - Cardiovascular Cardiovascular exam: Present: RRR, +S1, +S2. Absent: diastolic murmur, gallop, rubs, systolic murmur - GI/Abdominal GI/Abdominal exam: Present: normal bowel sounds, soft, no peritoneal signs. Absent: distended, tenderness - Extremities Exam Extremities exam: Present: warm, radial pulses palpable and symetrical. Absent : calf tenderness, cyanotic, pedal edema - Neurological Exam Neurological exam: Present: CN II-XII intact, oriented X3, no focal deficits. Absent: pronater drift, facial droop, speech deficit - Skin Skin exam: Present: dry, intact - VTE Documentation of Mechanical Device: Graduated compression elastic hosiery
--- NOTE | 2016-08-21 18:29 | Venous Imaging Report ---
LE Venous Duplex Patient Name:Berenice Woods Order Number:[id number] Procedure Date:08/20/2016 Date:1970Age:45 yrs Gender:Female Location:[facility] Room #: 2NE29 Chief Warden:Felecia Harry Referring MD:Amilcar Sun MD customs and border protection officer:None Reading MD:Jacob Juan MD , FACS Primary Indications:calf pain r/o DVT Secondary Indications: Risk Factors Yes/No Anticoagulants Impressions: Left lower extremity: normal superficial and deep exam. Right lower extremity: normal contralateral exam. Findings Prior Study: No prior study available for comparison. Lower Extremity Venous Duplex Side Vein Compress Spontaneous Flow Augment Diameter (cm) Depth (cm) Left Distal Iliac Normal Yes Phasic Yes Left Common Femoral Normal Yes Phasic Yes Left Superficial Femoral Normal Yes Phasic Yes Left Popliteal Normal Yes Phasic Yes Left Posterior Tibial Normal Yes Phasic Yes Left Peroneal Normal Yes Phasic Yes Left Saphenofemoral Junction Normal Yes Phasic Yes Left Great Saphenous Normal Yes Phasic Yes Left Lesser Saphenous Normal Yes Phasic Yes Right Common Femoral Normal Yes Phasic Yes Updated by Jacob Juan MD, FACS on 08/21/2016 6:25:51 PM Jacob Juan MD electronically signed on 08/21/2016 6:26:15 PM with status of Final
[2016-08-22 07:29] LABS: Homocysteine 9 umol/L (<=10)
[2016-08-22 17:05] LABS: APTT (LE Anticoag) 40 sec (32-48); Diluted Russell Viper Venom 34 sec (33-44)
[2016-08-23 07:44] LABS: Antithrombin III, Activity 98 % (76-128); Protein C, Functional 82 % (83-168); Protein S Antigen, Total 89 % (63-126); Protein S, Functional 79 % (57-131)
== END 2016-08-21 14:54 | disposition home or self-care (01) ==
LOC: EMEROO 16:38 → 2NENU 16:38 → SUATTDRO 23:42 → 2NENU 08-20 00:38
PROVIDERS: ADMIT Internal Medicine; ATTEND Internal Medicine

== ENCOUNTER 2017-01-28 15:03 | Inpatient (IN) ==
[2017-01-28] MEDS ORDERED: *HR* HYDROmorphone (PF) 1 MG/ML SYRINGE IVP ONE ×3 (15:16→17:32)
[2017-01-28] MEDS ORDERED: *HR* Promethazine 25 MG/ML VIAL IVP ONE (15:16)
[2017-01-28 15:45] LABS: Basophils % 0.2 %; Hematocrit 31.8 % (35.3-44.9); Hemoglobin 8.6 g/dL (11.5-15.4); Immature Granulocytes % 0.5 % (0-4); Lymphocytes % 7.4 %; Mean Corpuscular Hemoglobin 17.7 pg (28.0-33.3); Mean Corpuscular Volume 65.3 fL (83.0-100.0); Mean Platelet Volume 9.6 fL (9.4-12.4); Monocytes # 0.6 K/mcL (0.0-1.3); Monocytes % 4.9 %; Neutrophils # 11.3 K/mcL (1.6-8.9); Platelet Count 473 K/mcL (140-400); Red Blood Count 4.87 M/mcL (3.82-4.97); Red Cell Distribution Width 18.5 % (11.5-14.5)
[2017-01-28 15:56] LABS: Alanine Aminotransferase 9 Units/L (0-55); Albumin 4.6 g/dL (3.5-5.0); Albumin/Globulin Ratio 1.1 (1.1-2.2); Alkaline Phosphatase 66 Units/L (38-126); Amylase 46 Units/L (25-125); Aspartate Amino Transferase 13 Units/L (5-34); BUN/Creatinine Ratio 13 (6-26); Bilirubin,Direct 0.8 mg/dL (0.0-0.5); Bilirubin,Indirect 1.5 mg/dL (0.0-1.2); Bilirubin,Total 2.3 mg/dL (0.2-1.2); Blood Urea Nitrogen 14 mg/dL (7-20); Calcium 10.2 mg/dL (8.6-10.8); Carbon Dioxide 25 mEq/L (19-29); Chloride 99 mEq/L (98-109); Globulin 4.3 g/dL (2.4-3.5); Glucose 128 mg/dL (70-99); Lipase 14 Units/L (8-78); Osmolality,Calculated 280 (280-300); Sodium 134 mEq/L (136-145); Total Protein 8.9 g/dL (6.0-8.3); eGFR For African Americans > 60 (> 60); eGFR For Non-African Americans 55 (> 60)
[2017-01-28 16:03] LABS: INR 1.4; Prothrombin Time 14.8 Seconds (9.4-12.1)
[2017-01-28 16:07] LABS: Anisocytosis 2+ (Not Present); Hypochromasia Present (Not Present); Microcytosis Present (Not Present); Platelet Estimate Increased (Normal)
--- NOTE | 2017-01-28 16:52 | Emergency Department Note ---
Disposition Clinical Impression: Perforated ulcer of intestine Disposition: Admitted As Inpatient Referrals: NONE,PCP [Primary Care Provider] - Forms: Work/School Release, ED Satisfaction Letter Abdominal Pain HPI - General Chief Complaint: ED Abdominal Pain Stated Complaint: Kidney stones Time Seen by Provider: 01/28/17 15:12 Source: patient Mode of arrival: ambulatory Limitations: no limitations Nursing Notes Reviewed: Yes Vital Signs Reviewed: Yes - History of Present Illness Pt Subjective Complaint: abdominal pain Onset (ago): day(s) (3) Consistency: constant, Worsening Location: RUQ, epigastric Pain Scale: 9 Quality: stabbing Radiation: none Migration to: no migration Improves with: nothing Worsens with: nothing Associated symptoms: Reports: nausea. Denies: diarrhea, fever, chills, hematemesis, hematochezia Treatments prior to arrival: other (zantac) - Related Data Home Medications Medication Instructions Recorded Confirmed Ranitidine HCl [Zantac 75] 75 mg PO DAILY 08/20/16 08/20/16 Previous Rx's Medication Instructions Recorded Ferrous Sulfate 325 mg PO DAILY@0800 #30 tablet 08/21/16 Allergies Allergy/AdvReac Type Severity Reaction Status Date / Time Penicillins Allergy Hives Verified 08/19/16 17:00 All systems ED: reviewed and negative except as stated. 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 Psychiatric history: Reports: no psych history - Social History Smoking status: Current every day smoker Alcohol use: Reports: none Drug use: Reports: none Physical Exam - General Limitations: no limitations General appearance: alert, other (obvious pain) - Head Head exam: atraumatic, normocephalic, normal inspection - Eye Eye exam: Present: normal appearance, PERRL, EOMI - Expanded Eye Exam Pupils: Left: reactive - ENT ENT exam: normal exam, normal oropharynx, mucous membranes moist - Expanded ENT Exam External ear exam: Present: normal external inspection Mouth exam: Present: normal external inspection Teeth exam: Present: normal inspection Throat exam: Present: normal inspection - Neck Neck exam: Present: normal inspection, full ROM, trachea midline - Chest Chest inspection: Present: normal inspection, symmetric chest wall rise - Respiratory Respiratory exam: Present: normal lung sounds bilaterally - Cardiovascular Cardiovascular exam: Present: regular rate, normal rhythm, normal heart sounds - Abdominal Exam Abdominal exam: Present: soft, guarding, normal bowel sounds Abdominal tenderness: Present: RUQ, diffuse, moderate - Extremities Exam Extremities exam: Present: normal inspection, full ROM. Absent: tenderness, pedal edema - Expanded Upper Extremity Exam Shoulder exam: Present: normal inspection, full ROM Arm exam: Present: normal inspection, full ROM Elbow exam: Present: normal inspection, full ROM Forearm/Wrist exam: Present: normal inspection, full ROM Hand exam: Present: normal inspection, full ROM Vascular exam: Normal: capillary refill, radial pulse - Expanded Lower Extremity Exam Hip/Pelvis exam: Present: normal inspection, full ROM Upper leg exam: Present: normal inspection, full ROM Knee exam: Present: normal inspection, full ROM Lower leg exam: Present: normal inspection, full ROM Ankle exam: Present: normal inspection, full ROM Foot/toe exam: Present: normal inspection, full ROM Neurovascular/Tendon exam: Absent: motor deficit, sensory deficit, tendon deficit - Back Exam Back exam: Present: normal inspection, full ROM. Absent: tenderness - Neurological Exam Neurological exam: Present: alert, oriented X3 - Expanded Neurological Exam Patient oriented to: Present: person, place, time Coma Scale Eye Opening: Spontaneous Coma Scale Motor Response: Obeys Commands Coma Scale Verbal Response: Oriented Coma Scale Total: 15 - Psychiatric Psychiatric exam: Present: normal affect, normal mood - Skin Skin exam: Present: warm, dry, intact, normal color Course - Consultations Consultation #1: dr. lott consulted sarah felton in ER Time: 17:16 Vital Signs Temperature 97.7 F 01/28/17 15:22 Pulse Rate 130 01/28/17 15:22 Respiratory Rate 20 01/28/17 15:22 Blood Pressure 128/96 01/28/17 15:22 O2 Sat by Pulse Oximetry 95 01/28/17 15:22 Temperature 97.7 F 01/28/17 15:22 Pulse Rate 120 01/28/17 17:42 Respiratory Rate 22 01/28/17 17:42 Blood Pressure 144/73 01/28/17 17:42 O2 Sat by Pulse Oximetry 93 01/28/17 17:42 Oxygen Delivery Oxygen Delivery Room Air Abdominal Pain - Lab Data Result diagrams: 01/28/17 15:30 01/28/17 15:30 Lab Results 01/28/17 01/28/17 01/28/17 Range/Units 15:30 15:30 15:30 WBC 13.0 H (4.3-11.1) K/mcL RBC 4.87 (3.82-4.97) M/mcL Hgb 8.6 L (11.5-15.4) g/dL Hct 31.8 L (35.3-44.9) % MCV 65.3 L (83.0-100.0) fL MCH 17.7 L (28.0-33.3) pg MCHC 27.0 L (31.6-35.5) g/dL RDW 18.5 H (11.5-14.5) % Plt Count 473 H (140-400) K/mcL MPV 9.6 (9.4-12.4) fL Immature Gran % 0.5 (0-4) % Seg Neutrophils % 87.0 % Lymphocytes % 7.4 % Monocytes % 4.9 % Eosinophils % 0.0 % Basophils % 0.2 % Neutrophils # 11.3 H (1.6-8.9) K/mcL Lymphocytes # 1.0 (0.6-4.6) K/mcL Monocytes # 0.6 (0.0-1.3) K/mcL Eosinophils # 0.0 (0.0-0.6) K/mcL Basophils # 0.0 (0.0-0.2) K/mcL Platelet Estimate Increased H (Normal) Hypochromasia Present A (Not Present) Anisocytosis 2+ A (Not Present) Microcytosis Present A (Not Present) PT 14.8 H (9.4-12.1) Seconds INR 1.4 Sodium 134 L (136-145) mEq/L Potassium 4.0 (3.5-4.5) mEq/L Chloride 99 (98-109) mEq/L Carbon Dioxide 25 (19-29) mEq/L BUN 14 (7-20) mg/dL Creatinine 1.07 (0.57-1.11) mg/dL Est GFR ( Amer) > 60 (> 60) Est GFR (Non-Af Amer) 55 L (> 60) BUN/Creatinine Ratio 13 (6-26) Glucose 128 H (70-99) mg/dL Calculated Osmolality 280 (280-300) Calcium 10.2 (8.6-10.8) mg/dL Total Bilirubin 2.3 H (0.2-1.2) mg/dL Direct Bilirubin 0.8 H (0.0-0.5) mg/dL Indirect Bilirubin 1.5 H (0.0-1.2) mg/dL AST 13 (5-34) Units/L ALT 9 (0-55) Units/L Alkaline Phosphatase 66 (38-126) Units/L Troponin I (0-0.03) ng/mL Serum Total Protein 8.9 H (6.0-8.3) g/dL Albumin 4.6 (3.5-5.0) g/dL Globulin 4.3 H (2.4-3.5) g/dL Albumin/Globulin Ratio 1.1 (1.1-2.2) Amylase 46 (25-125) Units/L Lipase 14 (8-78) Units/L 08/15/17 Range/Units 15:30 WBC (4.3-11.1) K/mcL RBC (3.82-4.97) M/mcL Hgb (11.5-15.4) g/dL Hct (35.3-44.9) % MCV (83.0-100.0) fL MCH (28.0-33.3) pg MCHC (31.6-35.5) g/dL RDW (11.5-14.5) % Plt Count (140-400) K/mcL MPV (9.4-12.4) fL Immature Gran % (0-4) % Seg Neutrophils % % Lymphocytes % % Monocytes % % Eosinophils % % Basophils % % Neutrophils # (1.6-8.9) K/mcL Lymphocytes # (0.6-4.6) K/mcL Monocytes # (0.0-1.3) K/mcL Eosinophils # (0.0-0.6) K/mcL Basophils # (0.0-0.2) K/mcL Platelet Estimate (Normal) Hypochromasia (Not Present) Anisocytosis (Not Present) Microcytosis (Not Present) PT (9.4-12.1) Seconds INR Sodium (136-145) mEq/L Potassium (3.5-4.5) mEq/L Chloride (98-109) mEq/L Carbon Dioxide (19-29) mEq/L BUN (7-20) mg/dL Creatinine (0.57-1.11) mg/dL Est GFR ( Amer) (> 60) Est GFR (Non-Af Amer) (> 60) BUN/Creatinine Ratio (6-26) Glucose (70-99) mg/dL Calculated Osmolality (280-300) Calcium (8.6-10.8) mg/dL Total Bilirubin (0.2-1.2) mg/dL Direct Bilirubin (0.0-0.5) mg/dL Indirect Bilirubin (0.0-1.2) mg/dL AST (5-34) Units/L ALT (0-55) Units/L Alkaline Phosphatase (38-126) Units/L Troponin I 0.00 (0-0.03) ng/mL Serum Total Protein (6.0-8.3) g/dL Albumin (3.5-5.0) g/dL Globulin (2.4-3.5) g/dL Albumin/Globulin Ratio (1.1-2.2) Amylase (25-125) Units/L Lipase (8-78) Units/L
[2017-01-28] MEDS ORDERED: Pantoprazole 40 MG VIAL IVP ONE (16:56)
[2017-01-28] MEDS ORDERED: Ondansetron 4 MG/2 ML VIAL IVP ONE (17:32)
[2017-01-28] MEDS ORDERED: Piperacillin/Tazobactam 3.375 GM in D5% in Water (Mini-Bag+) 100 ML IVPB ONE (17:48)
[2017-01-28] MEDS ORDERED: Ringers Solution, Lactated 1,000 ML IVC ONE (17:48)
--- NOTE | 2017-01-28 18:11 | General Surg History&Physical ---
Date of Encounter: 01/28/17 Time of Encounter: 17:45 Assessment and Plan (1) Perforated ulcer of intestine Current Visit: Yes Status: Acute The assessment and plan as outlined above was discussed with the patient and/or family members who expressed understanding and agreement. All questions were answered. The patient has physical examination and CAT scan evidence of perforated duodenal ulcer. I recommended urgent surgical exploration. I discussed the risks and benefits of surgery with the patient. She understands and wishes to proceed. History of Present Illness Chief complaint: Abdominal pain HPI: Ms. Woods is a 46 year old female Developed abdominal pain 3 days ago. She self medicated with a variety of different medicines including proton pump inhibitor and laxative medicines. Her pain was epigastric and right upper quadrant. This morning she developed severe abdominal pain that led to evaluation in the emergency room. At the time of evaluation she is uncomfortable and writhing in pain. She had several episodes of vomiting this morning. On exam she has an acute abdomen with rebound tenderness and involuntary guarding. She has already had 3 doses of Dilantin prior to examination. I personally reviewed the CAT scan. The findings are consistent with perforated duodenal ulcer. I discussed the risks and benefits of surgery with the patient and I think with acute abdomen and her young age I would favor immediate surgical exploration. She understands this and wishes to proceed. She has not previously had abdominal surgery other than Past Med Surg Social Fam HX - Past Medical History Medical history: arthritis, GERD, other Psychiatric history: no psych history - Past Surgical History Surgical History: , other - Social History Smoking Status: Current every day smoker Smokeless Tobacco Status: No Alcohol use: none Drug use: none Medications and Allergies Ranitidine HCl [Zantac 75] 75 mg PO DAILY 08/20/16 [History] Ferrous Sulfate 325 mg PO DAILY@0800 #30 tablet 08/21/16 [Rx] Allergies Penicillins Allergy (Verified 08/19/16 17:00) Hives Review of Systems All systems PM: A 10-system review of systems was performed and is negative for pertinent findings except as documented above in the HPI. General Surgery Exam Initial Vital Signs Temp Pulse Resp BP Pulse Ox 97.7 F 130 20 128/96 95 01/28/17 15:22 01/28/17 15:22 01/28/17 15:22 01/28/17 15:01/28/17 15:22 - General physical appearance other (Tachycardic and tachypnic. She is in severe pain.) - Neck no masses, no bruits, trachea midline, no lymphadectomy, no venous distension - Respiratory normal expansion, normal respiratory effort, clear to percussion, clear to auscultation, other (Tachypnic) - Cardiovascular Cardiovascular exam: Present: RRR, tachycardia, no murmurs/rubs/gallops - Abdomen Abdomen general surgery: Present: tender, guarding, rebound, rigid - Neurologic Present: CN 2-12 grossly intact, normal coordination, normal sensation - Psychiatric Psychiatric general surgery: Present: appropriate, oriented to person, oriented to place, oriented to time, speech is normal, memory intact Results - Labs 01/28/17 15:30 01/28/17 15:30 Abnormal lab results WBC 13.0 K/mcL (4.3-11.1) H 01/28/17 15:30 Hgb 8.6 g/dL (11.5-15.4) L 01/28/17 15:30 Hct 31.8 % (35.3-44.9) L 01/28/17 15:30 MCV 65.3 fL (83.0-100.0) L 01/28/17: MCH 17.7 pg (28.0-33.3) L 01/28/17 15: MCHC 27.0 g/dL (31.6-35.5) L 01/28/17 15:30 RDW 18.5 % (11.5-14.5) H 01/28/17 15:30 Plt Count 473 K/mcL (140-400) H 01/28/17 15:30 Neutrophils # 11.3 K/mcL (1.6-8.9) H 01/28/17 15:30 Platelet Estimate Increased (Normal) H 01/28/17 15:30 Hypochromasia Present (Not Present) A 01/28/17 15:30 Anisocytosis 2+ (Not Present) A 01/28/17 15:30 Microcytosis Present (Not Present) A 01/28/17 15:30 PT 14.8 Seconds (9.4-12.1) H 01/28/17 15:30 Sodium 134 mEq/L (136-145) L 01/28/17 15:30 Est GFR (Non-Af Amer) 55 (> 60) L 01/28/17 15:30 Glucose 128 mg/dL (70-99) H 01/28/17 15:30 Total Bilirubin 2.3 mg/dL (0.2-1.2) H 01/28/17 15:30 Direct Bilirubin 0.8 mg/dL (0.0-0.5) H 01/28/17 15:30 Indirect Bilirubin 1.5 mg/dL (0.0-1.2) H 01/28/17 15:30 Serum Total Protein 8.9 g/dL (6.0-8.3) H 01/28/17 15:30 Globulin 4.3 g/dL (2.4-3.5) H 01/28/17 15:30 Diabetes panel 01/28/17 Range/Units 15:30 Sodium 134 L (136-145) mEq/L Potassium 4.0 (3.5-4.5) mEq/L Chloride 99 (98-109) mEq/L Carbon Dioxide 25 (19-29) mEq/L BUN 14 (7-20) mg/dL Creatinine 1.07 (0.57-1.11) mg/dL Glucose 128 H (70-99) mg/dL Calcium 10.2 (8.6-10.8) mg/dL AST 13 (5-34) Units/L ALT 9 (0-55) Units/L Alkaline Phosphatase 66 (38-126) Units/L Albumin 4.6 (3.5-5.0) g/dL Calcium panel 01/28/17 Range/Units 15:30 Calcium 10.2 (8.6-10.8) mg/dL Albumin 4.6 (3.5-5.0) g/dL Pituitary panel 01/28/17 Range/Units 15:30 Sodium 134 L (136-145) mEq/L Potassium 4.0 (3.5-4.5) mEq/L Chloride 99 (98-109) mEq/L Carbon Dioxide 25 (19-29) mEq/L BUN 14 (7-20) mg/dL Creatinine 1.07 (0.57-1.11) mg/dL Glucose 128 H (70-99) mg/dL Calcium 10.2 (8.6-10.8) mg/dL Adrenal panel 01/28/17 Range/Units 15:30 Sodium 134 L (136-145) mEq/L Potassium 4.0 (3.5-4.5) mEq/L Chloride 99 (98-109) mEq/L Carbon Dioxide 25 (19-29) mEq/L BUN 14 (7-20) mg/dL Creatinine 1.07 (0.57-1.11) mg/dL Glucose 128 H (70-99) mg/dL Calcium 10.2 (8.6-10.8) mg/dL Total Bilirubin 2.3 H (0.2-1.2) mg/dL AST 13 (5-34) Units/L ALT 9 (0-55) Units/L Alkaline Phosphatase 66 (38-126) Units/L Albumin 4.6 (3.5-5.0) g/dL All other labs normal. - Imaging CT scan - abdomen: image reviewed (I personally reviewed the CAT scan. Findings are consistent with distal gastric and duodenal inflammation as well as free air and fluid around the liver area these findings are consistent with perforated duodenal ulcer.)
[2017-01-28] MEDS ORDERED: Levofloxacin 750 MG/150 ML 750 MG/150 ML BAG IVPB ONE (18:24)
[2017-01-28] MEDS ORDERED: MetroNIDAZOLE 500 MG/100 ML 500 MG/100 ML BAG IVPB ONE (18:24)
[2017-01-28] MEDS ORDERED: CefOXitin 1,000 MG VIAL ONE ×2 (18:57→21:30)
[2017-01-28] MEDS ORDERED: Lidocaine -MPF 4% 5 ML AMPUL ONE (19:21)
[2017-01-28] MEDS ORDERED: Lidocaine -MPF 2% 2 ML VIAL ONE ×2 (19:21→19:22)
[2017-01-28] MEDS ORDERED: *HR* Succinylcholine 200 MG/10 ML VIAL IVP ONE (19:21)
[2017-01-28] MEDS ORDERED: *HR* Midazolam HCl 2 MG/2 ML VIAL ONE (19:22)
[2017-01-28] MEDS ORDERED: *HR* FentaNYL (PF) 100 MCG/2 ML VIAL ONE (19:22)
[2017-01-28] MEDS ORDERED: *HR* Propofol 200 MG/20 ML VIAL IVP ONE (19:22)
[2017-01-28] MEDS ORDERED: Neostigmine Methylsulfate 3 MG/3 ML SYRINGE ONE ×2 (19:48→21:52)
[2017-01-28] MEDS ORDERED: *HR* HYDROmorphone 2 MG/ML SYRINGE ONE ×2 (19:55→21:04)
--- NOTE | 2017-01-28 20:27 | Anesthesia Evaluation PreOp ---
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 History: Other Other Medical History: Denies Any Significant HX Anesthesia History: No Prior Anesthetic Complications, Past Anesthesia (C- section) Alcohol Use: none Drug use: none Medications and Allergies No Known Home Drugs 01/28/17 [History] Allergies Penicillins Allergy (Verified 08/19/16 17:00) Hives - Meds/Allergy Pre-op Review Medications Reviewed: Yes Allergies Reviewed: Yes Beta Blockers on Current Med List: No Anesthesia Results - Labs 01/28/17 15:30 01/28/17 15:30 Laboratory Tests 08/19/16 01/28/17 01/28/17 21:48 15:30 15:30 WBC 13.0 H Hgb 8.6 L Hct 31.8 L Plt Count 473 H PT 14.8 H INR 1.4 APTT 27.6 Sodium Potassium Chloride Carbon Dioxide BUN Creatinine Est GFR (Non-Af Amer) Glucose 01/28/17 15:30 WBC Hgb Hct Plt Count PT INR APTT Sodium 134 L Potassium 4.0 Chloride 99 Carbon Dioxide 25 BUN 14 Creatinine 1.07 Est GFR (Non-Af Amer) 55 L Glucose 128 H Anesthesia Exam Vital Signs Temp Pulse Resp BP Pulse Ox 01/28/17 19:08 20 133/77 01/28/17 19:01 123 20 133/77 94 01/28/17 18:17 116 22 138/82 92 01/28/17 17:42 120 22 144/73 93 01/28/17 17:09 111 18 150/84 96 01/28/17 16:26 127 20 132/76 93 01/28/17 15:58 129 12 124/81 96 01/28/17 15:25 124 12 128/96 97 01/28/17 15:22 97.7 F 130 20 128/96 95 Intake and Output 01/28/17 01/28/17 01/28/17 07:59 15:59 23:59 Intake Total 2.6 / 2.6 Balance 2.6 / 2.6 Intake: IV Fluids 2.6 / 2.6 Zosyn 3.375 GM In 2.6 / 2.6 Dextrose 5% (Minibag+) 100 ML 100 ML @ 25 mls/hr IVPB ONCE ONE Rx#: [id number] Other: Weight 63.503 kg Patient Weight 01/28/17 23:59 Weight 63.503 kg Height: 5'6" Weight: 140# BMI = 22.6 NPO (# of Hours): MNOc - HEENT Pupil (Motor): Pupils equal, EOMI Mallampati: II Teeth: Poor dentition Oral Opening: Greater than 3 - AUTOMATIC DEVELOPER LOC: Oriented AUTOMATIC DEVELOPER Motor: Normal RUE, Normal LUE, Normal RLE, Normal LLE, Normal Face AUTOMATIC DEVELOPER Sensory: Normal: RUE, LUE, RLE, LLE, Face - Cardiac Rhythm: Regular Murmur: None - Pulmonary Breath Sounds: bilateral Clear Respiratory Effort: Symmetrical Anesthesia Assess/Plan ASA Score: 3 (Smoker, Conversion[?] disorder/pyschiatric disorder,) Anes Supervising Prov Stmt: Pt seen/evaluated, R&B discussed, questions answered and consent obtained. Ambar Ortiz MD
[2017-01-28] MEDS ORDERED: *HR* Phenylephrine 10 MG/ML VIAL ONE (21:13)
[2017-01-28] MEDS ORDERED: Ondansetron 4 MG/2 ML VIAL ONE (21:35)
[2017-01-28] MEDS ORDERED: Dexamethasone 4 MG/ML VIAL ONE (21:35)
[2017-01-28] MEDS ORDERED: *HR* Labetalol 20 MG/4 ML SYRINGE IVP PRN (21:39)
[2017-01-28] MEDS ORDERED: *HR* Promethazine 25 MG/ML VIAL IVP PRN (21:39)
[2017-01-28] MEDS ORDERED: *HR* HYDROmorphone (PF) 1 MG/ML SYRINGE IVP PRN (21:39)
[2017-01-28] MEDS ORDERED: Ondansetron 4 MG/2 ML VIAL IVP PRN (21:40)
[2017-01-28] MEDS ORDERED: Acetaminophen IV 1,000 MG/100 ML INFUS..BTL ONE (21:42)
--- NOTE | 2017-01-28 21:48 | Operative Note ---
Date of procedure: 01/28/17 Pre-op diagnosis: Perforated duodenal ulcer Post-op diagnosis: same Procedure: Pyloroplasty (Heineke Mikulicz), omental patch Anesthesia: BEBE Surgeon: Chadwick Quiñones Estimated blood loss (cc): 25 Condition: stable Disposition: PACU Procedure in Detail: After informed consent patient was taken to the major operative suite placed in the supine position and given adequate general anesthetic. The abdomen was prepped and draped in sterile fashion utilizing ChloraPrep standard draping techniques. Timeout was taken patient was identified. Made an upper midline incision and entered the abdomen. The abdomen was filled with gastric secretions. The abdomen was completely suctioned using the sump sucker. The patient had a anterior pyloric channel perforation that was freely draining bilious and gastric material. I performed [place] maneuver to mobilize the duodenum. Then used right angle and the defect and extended the defect longitudinally down onto the duodenum and longitudinally back onto the stomach across the pylorus. A Heineke-Mikulicz closure was then performed using interrupted 2-0 silk. This gave an excellent technical result. A right lateral tongue of omentum was then brought over the repair and sutured circumferentially to complete an omental patch. I suctioned all 4 quadrants of the abdomen with copious amounts of antibiotic containing solution. The midline was closed with looped 0 PDS and the skin with interrupted 2-0 Vicryl and skin lino. She tolerated the procedure well.
[2017-01-28] MEDS: 0.9 % Sodium Chloride 1,000 ML IVC SCH (23:36)
--- NOTE | 2017-01-28 23:37 | Anesthesia Evaluation Post Op ---
Date of Encounter: 01/28/17 Time of Encounter: 23:05 - Vital Signs Vital Signs: Vital Signs/O2 Sat/Glucose, Most Current Temp Pulse Resp BP Pulse Ox 01/28/17 23:02 97.4 F L 88 14 135/85 100 01/28/17 22:52 103 14 130/82 100 01/28/17 22:42 81 12 132/77 100 01/28/17 22:32 97.4 F L 79 12 126/69 100 01/28/17 22:22 80 12 123/62 100 01/28/17 22:12 80 12 129/66 100 01/28/17 22:02 97.1 F L 80 12 115/58 90 - Lungs Lungs: Clear Ascult./Percussion - Airway Airway: Non-obstructed - Cardiovascular Regular Rate - Mental Status Mental Status: Asleep without brisk response to light stimulation - Pain Pain Scale: 0 Pain Scale used: Numeric (1 - 10) - Nausea Vomiting Nausea Vomiting: Not Present - Hydration Hydration: NPO, Has not voided - Discharge PostOp Status: Transfer Patient to floor Anes Supervising Prov Stmt: Pt VSS and has met criteria for discharge to floor.- MD Angel
[2017-01-29] MEDS ORDERED: MetroNIDAZOLE 500 MG/100 ML 500 MG/100 ML BAG IVPB SCH
[2017-01-29] MEDS: MetroNIDAZOLE 500 MG/100 ML 500 MG/100 ML BAG IVPB SCH ×3 (03:11→17:57)
[2017-01-29 05:22] LABS: Hematocrit 31.7 % (35.3-44.9); Hemoglobin 8.4 g/dL (11.5-15.4); Mean Corpuscular HGB Conc 26.5 g/dL (31.6-35.5); Mean Corpuscular Hemoglobin 17.6 pg (28.0-33.3); Mean Corpuscular Volume 66.3 fL (83.0-100.0); Mean Platelet Volume 10.9 fL (9.4-12.4); Platelet Count 401 K/mcL (140-400); Red Blood Count 4.78 M/mcL (3.82-4.97); Red Cell Distribution Width 18.1 % (11.5-14.5)
[2017-01-29 05:35] LABS: Alanine Aminotransferase 18 Units/L (0-55); Albumin/Globulin Ratio 1.1 (1.1-2.2); Alkaline Phosphatase 45 Units/L (38-126); Aspartate Amino Transferase 27 Units/L (5-34); BUN/Creatinine Ratio 15 (6-26); Bilirubin,Direct 0.5 mg/dL (0.0-0.5); Blood Urea Nitrogen 14 mg/dL (7-20); Carbon Dioxide 27 mEq/L (19-29); Chloride 102 mEq/L (98-109); Glucose 123 mg/dL (70-99); Osmolality,Calculated 282 (280-300); Sodium 135 mEq/L (136-145); eGFR For African Americans > 60 (> 60); eGFR For Non-African Americans > 60 (> 60)
[2017-01-29 05:48] LABS: Albumin 3.2 g/dL (3.5-5.0); Anisocytosis 1+ (Not Present); Calcium 8.5 mg/dL (8.6-10.8); Lymphocytes # 0.2 K/mcL (0.6-4.6); Microcytosis Present (Not Present); Monocytes # 0.6 K/mcL (0.0-1.3); Neutrophils # 8.6 K/mcL (1.6-8.9); Platelet Estimate Normal (Normal); Total Protein 6.2 g/dL (6.0-8.3)
[2017-01-29 05:49] LABS: Bilirubin,Total 2.5 mg/dL (0.2-1.2); Hypochromasia Present (Not Present)
[2017-01-29] MEDS: *HR* Heparin 5,000 UNIT/ML VIAL SQ SCH ×2 (06:34→17:57)
[2017-01-29] MEDS: Pantoprazole 40 MG VIAL IVP SCH (06:38)
[2017-01-29] MEDS ORDERED: Chloraseptic Spray 177 ML BOTTLE MM PRN (08:43)
--- NOTE | 2017-01-29 10:51 | General Surgery Progress Note ---
<Aneudy Alan - Last Filed: 01/29/17 10:49> Date of Encounter: 01/29/17 Time of Encounter: 06:35 - Assessment and Plan (1) Perforated ulcer of intestine Current Visit: Yes Status: Acute POD #1 Pyloroplasty and omental patch by Dr. Quiñones Patient has clinically improved since surgery, pain is much less and she has an appetite She is passing flatus but no BMs yet WBC count dropped from 13.0 to 9.6 Slight elevation of bilirubin from 2.3 to 2.5 can be explained by reabsorption of spilled bile into the peritoneum through the perforation Continue antibiotics Keep NPO except ice chips to allow healing Added Chloraseptic for discomfort Expected to be inpatient for around 5 days (2) Hyperkalemia Current Visit: Yes Status: Acute Increased from 4.0 to 5.0, currently asymptomatic She is receiving IV fluids w/o potassium currently We will continue to monitor (3) Conversion disorder with abnormal movement Current Visit: No Status: Inactive She does not currently have the symptoms of weakness that were present previously However, she appears to lack insight into the severity of the illness that brought her in for surgery She expected to return to home and work today despite our explanation of the severity of her case She is tangential in her speech, as well We have placed a consult to inpatient psychiatry and appreciate any input Subjective Patient reports: no new complaints, feels better, pain is less, flatus, no bowel movement, afebrile, other Objective Vital Signs - Last 8 Hours Temp Pulse Resp BP Pulse Ox 01/29/17 07:10 99 01/29/17 06:30 97.6 F 110 16 128/78 99 Intake and Output 01/28/17 01/29/17 01/29/17 23:59 07:59 15:59 Intake Total 2.6 / 2.6 868 / 868 Output Total 20 0 / 0 Balance -17.4 / -17.4 868 / 868 Intake: IV Fluids 2.6 / 2.6 868 / 868 0.9 % Sodium Chloride 1, 568 / 568 000 ML @ 75 mls/hr IVC . [id number] [facility] Rx#: [id number] Cipro Premix 400 MG/200 200 / 200 ML 400 mg In 200 ml @ 200 mls/hr IVPB Q12HR [facility] Rx #:[id number] Flagyl Premix 500 MG/100 100 / 100 ML 500 mg In 100 ml @ 100 mls/hr IVPB Q8H [facility] Rx#: [id number] Zosyn 3.375 GM In 2.6 / 2.6 Dextrose 5% (Minibag+) 100 ML 100 ML @ 25 mls/hr IVPB ONCE ONE Rx#: [id number] Output: Urine 0 / 0 Estimated Blood Loss 20 Other: Meal NPO Blood Glucose* 128 - General physical appearance well developed, well nourished, no distress - Neck Neck exam: trachea midline - Respiratory normal expansion, normal respiratory effort, clear to auscultation - Cardiovascular Cardiovascular exam: Present: RRR - Abdomen Abdomen: Present: bowel sounds present (hypoactive), soft, tender (expected postoperative tenderness) - Incision Incision: Present: clean and dry - Musculoskeletal normal posture - Psychiatric other (Tangential, lack of insight, speech rapid) - Labs 01/29/17 04:22 01/29/17 04:22 Diabetes panel 01/29/17 Range/Units 04:22 Sodium 135 L (136-145) mEq/L Potassium 5.0 H D (3.5-4.5) mEq/L Chloride 102 (98-109) mEq/L Carbon Dioxide 27 (19-29) mEq/L BUN 14 (7-20) mg/dL Creatinine 0.91 (0.57-1.11) mg/dL Glucose 123 H (70-99) mg/dL Calcium 8.5 L D (8.6-10.8) mg/dL AST 27 (5-34) Units/L ALT 18 (0-55) Units/L Alkaline Phosphatase 45 (38-126) Units/L Albumin 3.2 L D (3.5-5.0) g/dL Calcium panel 01/29/17 Range/Units 04:22 Calcium 8.5 L D (8.6-10.8) mg/dL Albumin 3.2 L D (3.5-5.0) g/dL Pituitary panel 01/29/17 Range/Units 04:22 Sodium 135 L (136-145) mEq/L Potassium 5.0 H D (3.5-4.5) mEq/L Chloride 102 (98-109) mEq/L Carbon Dioxide 27 (19-29) mEq/L BUN 14 (7-20) mg/dL Creatinine 0.91 (0.57-1.11) mg/dL Glucose 123 H (70-99) mg/dL Calcium 8.5 L D (8.6-10.8) mg/dL Adrenal panel 01/29/17 Range/Units 04:22 Sodium 135 L (136-145) mEq/L Potassium 5.0 H D (3.5-4.5) mEq/L Chloride 102 (98-109) mEq/L Carbon Dioxide 27 (19-29) mEq/L BUN 14 (7-20) mg/dL Creatinine 0.91 (0.57-1.11) mg/dL Glucose 123 H (70-99) mg/dL Calcium 8.5 L D (8.6-10.8) mg/dL Total Bilirubin 2.5 H (0.2-1.2) mg/dL AST 27 (5-34) Units/L ALT 18 (0-55) Units/L Alkaline Phosphatase 45 (38-126) Units/L Albumin 3.2 L D (3.5-5.0) g/dL - VTE Documentation of Mechanical Device: Intermittent pneumatic compression device Consult Discharge Plan - Plan Referrals: NONE,PCP [Primary Care Provider] - <Chadwick Quiñones - Last Filed: 01/30/17 08:15> Date of Encounter: 01/29/17 - Assessment and Plan (1) Perforated ulcer of intestine Current Visit: Yes Status: Acute Objective Vital Signs - Last 8 Hours Temp Pulse Resp BP Pulse Ox 01/30/17 07:15 98.5 F 95 16 107/69 92 01/30/17 04:05 99.7 F H 109 16 121/76 93 Intake and Output 01/29/17 01/30/17 01/30/17 23:59 07:59 15:59 Intake Total 600 / 600 1300 / 1300 Output Total 375 / 375 200 / 200 Balance 225 / 225 1100 / 1100 Intake: IV Fluids 600 / 600 1300 / 1300 0.9 % Sodium Chloride 1, 300 / 300 1000 / 1000 000 ML @ 75 mls/hr IVC . [id number] [facility] Rx#: [id number] Cipro Premix 400 MG/200 200 / 200 200 / 200 ML 400 mg In 200 ml @ 200 mls/hr IVPB Q12HR [facility] Rx #:[id number] Flagyl Premix 500 MG/100 100 / 100 100 / 100 ML 500 mg In 100 ml @ 100 mls/hr IVPB Q8H [facility] Rx#: [id number] Oral 0 / 0 0 / 0 Output: Urine 375 / 375 200 / 200 Gastric Drainage 0 / 0 Other: Meal NPO Percent of Meal Consumed 0% # Bowel Movements 0 Weight 63.7 kg Blood Glucose* 79 78 Patient Weight 01/30/17 23:59 Weight 63.7 kg - Labs 01/29/17 04:22 01/30/17 06:41 Diabetes panel 01/30/17 Range/Units 06:41 Sodium 132 L (136-145) mEq/L Potassium 4.0 D (3.5-4.5) mEq/L Chloride 102 (98-109) mEq/L Carbon Dioxide 25 (19-29) mEq/L BUN 15 (7-20) mg/dL Creatinine 0.85 (0.57-1.11) mg/dL Glucose 87 (70-99) mg/dL Calcium 8.6 (8.6-10.8) mg/dL AST 22 (5-34) Units/L ALT 12 (0-55) Units/L Alkaline Phosphatase 54 (38-126) Units/L Albumin 2.6 L (3.5-5.0) g/dL Calcium panel 01/30/17 Range/Units 06:41 Calcium 8.6 (8.6-10.8) mg/dL Albumin 2.6 L (3.5-5.0) g/dL Pituitary panel 01/30/17 Range/Units 06:41 Sodium 132 L (136-145) mEq/L Potassium 4.0 D (3.5-4.5) mEq/L Chloride 102 (98-109) mEq/L Carbon Dioxide 25 (19-29) mEq/L BUN 15 (7-20) mg/dL Creatinine 0.85 (0.57-1.11) mg/dL Glucose 87 (70-99) mg/dL Calcium 8.6 (8.6-10.8) mg/dL Adrenal panel 01/30/17 Range/Units 06:41 Sodium 132 L (136-145) mEq/L Potassium 4.0 D (3.5-4.5) mEq/L Chloride 102 (98-109) mEq/L Carbon Dioxide 25 (19-29) mEq/L BUN 15 (7-20) mg/dL Creatinine 0.85 (0.57-1.11) mg/dL Glucose 87 (70-99) mg/dL Calcium 8.6 (8.6-10.8) mg/dL Total Bilirubin 3.3 H (0.2-1.2) mg/dL AST 22 (5-34) Units/L ALT 12 (0-55) Units/L Alkaline Phosphatase 54 (38-126) Units/L Albumin 2.6 L (3.5-5.0) g/dL - Attending Attestation I examined this patient and my medical decision-making was reviewed with the Resident Physician. I agree with the documented findings, disposition and treatment plan as described except to the extent set forth below. The patient is seen and evaluated on morning rounds with the resident. She is doing quite well after surgery. Nasogastric tube drainage is bilious and minimal. Preoperative pain syndrome is gone. She is ambulating. Continue nasogastric tube drainage. Chadwick Quiñones MD FACS
[2017-01-29 11:13] LABS: Bilirubin,Urine Negative (Negative); Blood,Urine Negative (Negative); Clarity,Urine Cloudy (Clear); Color,Urine Dark Yellow (Yellow); Glucose,Urine (UA) Normal (Normal); Ketones,Urine Negative (Negative); Leukocyte Esterase,Urine Negative (Negative); Nitrite,Urine Negative (Negative); Protein,Urine Trace mg/dL (Neg-Trace); Specific Gravity,Urine > 1.030 (1.010-1.025); Urobilinogen,Urine Normal (Normal)
[2017-01-29 11:16] LABS: Squamous Epithelial Cell,Urine Many per lpf (None-Few)
[2017-01-29 11:17] LABS: Amphetamine Screen,Urine Negative ng/mL (Cutoff=1000); Barbiturate Screen,Urine Negative ng/mL (Cutoff=200); Benzodiazepines Screen,Urine Positive ng/mL (Cutoff=200); Cannabinoid Screen,Urine Negative ng/mL (Cutoff = 50); Cocaine Screen,Urine Negative ng/mL (Cutoff= 300); Opiate Screen,Urine Positive ng/mL (Cutoff=300); Phencyclidine Screen,Urine Negative ng/mL (Cutoff=25)
[2017-01-29] MEDS: *HR* HYDROmorphone (PF) 1 MG/ML SYRINGE IVP PRN ×2 (11:23→20:19)
[2017-01-29 11:39] LABS: Granular Casts,Urine Few per lpf (None Seen); Hyaline Casts,Urine Moderate per lpf (None-Few)
[2017-01-29 11:40] LABS: Bacteria,Urine Few per hpf (None-Few); Mucus,Urine Moderate (Few)
[2017-01-29] MEDS: 0.9 % Sodium Chloride 1,000 ML IVC SCH (12:13)
--- NOTE | 2017-01-29 14:29 | Consult Note ---
Date of Encounter: 01/29/17 Time of Encounter: 13:25 Assessment & Recommendation (1) Generalized anxiety disorder Current visit: Yes Status: Chronic Assessment & Recommendation: Patient will benifit from low dose of Sertraline 50 mg po am . Recommend counselling for her anxiety. History of Present Illness Requesting Physician: Chadwick Quiñones MD Reason for consult: h/o conversion disorder, klack of insight,tangentiality. History of present illness: Ms. Woods is a 46 year old female consulted for history of conversion disorder , lack of insight and tangential. Patient was seen at medical floor , with her permission her Mr. Salvador Woods and her and her Aunt were in room and during session. Patient came to ED with severe abdominal pain and was diagnosed with perforated duodenal ulcer she had surgery on 01/28and at present able to give history, patient is calm and cooperative , polite and able to give history. As per her , she has anxiety ,she worries a lot about everything ,she worries for everybody she puts herself last and she worries for reason that she do not need to worry, she stated I think I got this problem because worrying too much and not taking care of herself ,she denied any depressive symptomatology at present denies any psychotic symptoms, denied any kalin, denied any suicidal homicidal ideation. She. denies any panic attacks or social anxiety, she agreed she is feeling weak and stiff as i am in bed , I need to walk and they told me they will give me a walker. Patient was dx depression 20 years ago , and was admitted to psychiatric inpatient after marital problems and her put her there stating that she was danger to herself, patient denies that she was ever suicidal , after patient was discharged she left him and moved to other place. she has no history or treatment since then. No h/o alcohol/substance use, cig. 1/2 to 1 ppd At present patient admits being anxious increased worries generalized anxiety but has good insight and aware of her situation and why she is here , what surgery she had and she is going to follow-up with the recommendation of the physicians . at present patient is not in immediate danger to self or others, has fair insight . her family is supportive , she works at [employer], she has 6 children , allgrown , she has good support. CC: Chadwick Quiñones MD Past Med Surg Social Fam HX - Past Medical History Medical history: arthritis, GERD, other - Past Psychiatric History Psychiatric history: Reports: depression, previous psychiatric hospitalization Family psychiatric history: Yes Family History of Suicide: None - Past Surgical History Surgical History: , other - Social History Smoking Status: Current every day smoker Smokeless Tobacco Status: No Alcohol use: none Drug use: none Medications & Allergies No Known Home Drugs 01/28/17 [History] Allergies Penicillins Allergy (Verified 08/19/16 17:00) Hives Review of Systems Psychiatric: Reports: anxiety Mental Status Exam Patient orientation: Yes Person, Yes Time, Yes Place Level of alertness: Alert Patient appearance: Appropriate Behavior: calm, cooperative Psychomotor activity: Normal Eye contact: Maintains Eye Contact Mood description: Anxious Affect description: congruent with mood Speech pattern: Normal rate, Coherent Speech volume: Normal Thought process: Intact Thought content: Yes Intact Attention span: Capable of Focused Attention Memory description: Grossly Intact Patient reliability: Reliable Historian Intelligence estimate: Average Judgment: Good Insight: Full Results - Vital Signs Vital signs: Temp Pulse Resp BP Pulse Ox 97.6 F 110 16 128/78 99 01/29/17 06:30 01/29/17 06:30 01/29/17 06:30 01/29/17 06:30 01/29/17 10:51 - Labs Labs: Laboratory Last Values WBC 9.6 K/mcL (4.3-11.1) 01/29/17 04:22 RBC 4.78 M/mcL (3.82-4.97) 01/29/17 04:22 Hgb 8.4 g/dL (11.5-15.4) L 01/29/17 04:22 Hct 31.7 % (35.3-44.9) L 01/29/17 04:22 MCV 66.3 fL (83.0-100.0) L 01/29/17 04:22 MCH 17.6 pg (28.0-33.3) L 01/29/17 04:22 MCHC 26.5 g/dL (31.6-35.5) L 01/29/17 04:22 RDW 18.1 % (11.5-14.5) H 01/29/17 04:22 Plt Count 401 K/mcL (140-400) H 01/29/17 04:22 MPV 10.9 fL (9.4-12.4) 01/29/17 04:22 Immature Gran % 0.5 % (0-4) 01/28/17 15:30 Seg Neutrophils % 70.0 % 01/29/17 04:22 Band Neutrophils % 20.0 % (0-4) H 01/29/17 04:22 Lymphocytes % 2.0 % 01/29/17 04:22 Monocytes % 6.0 % 01/29/17 04:22 Eosinophils % 0.0 % 01/28/17 15:30 Basophils % 0.2 % 01/28/17 15:30 Metamyelocytes % 2.0 % (0) H 01/29/17 04:22 Neutrophils # 8.6 K/mcL (1.6-8.9) 01/29/17 04:22 Lymphocytes # 0.2 K/mcL (0.6-4.6) L 01/29/17 04:22 Monocytes # 0.6 K/mcL (0.0-1.3) 01/29/17 04:22 Eosinophils # 0.0 K/mcL (0.0-0.6) 01/28/17 15:30 Basophils # 0.0 K/mcL (0.0-0.2) 01/28/17 15:30 Platelet Estimate Normal (Normal) 01/29/17 04:22 Hypochromasia Present (Not Present) A 01/29/17 04:22 Anisocytosis 1+ (Not Present) A 01/29/17 04:22 Microcytosis Present (Not Present) A 01/29/17 04:22 PT 14.8 Seconds (9.4-12.1) H 01/28/17 15:30 INR 1.4 01/28/17 15:30 Sodium 135 mEq/L (136-145) L 01/29/17 04:22 Potassium 5.0 mEq/L (3.5-4.5) H D 01/29/17 04:22 Chloride 102 mEq/L (98-109) 01/29/17 04:22 Carbon Dioxide 27 mEq/L (19-29) 01/29/17 04:22 BUN 14 mg/dL (7-20) 01/29/17 04:22 Creatinine 0.91 mg/dL (0.57-1.11) 01/29/17 04:22 Est GFR ( Amer) > 60 (> 60) 01/29/17 04:22 Est GFR (Non-Af Amer) > 60 (> 60) 01/29/17 04:22 BUN/Creatinine Ratio 15 (6-26) 01/29/17 04:22 Glucose 123 mg/dL (70-99) H 01/29/17 04:22 POC Glucose 128 (58-89) H 01/29/17 05:12 Calculated Osmolality 282 (280-300) 01/29/17 04:22 Calcium 8.5 mg/dL (8.6-10.8) L D 01/29/17 04:22 Total Bilirubin 2.5 mg/dL (0.2-1.2) H 01/29/17 04:22 Direct Bilirubin 0.5 mg/dL (0.0-0.5) 01/29/17 04:22 Indirect Bilirubin 2.0 mg/dL (0.0-1.2) H 01/29/17 04:22 AST 27 Units/L (5-34) 01/29/17 04:22 ALT 18 Units/L (0-55) 01/29/17 04:22 Alkaline Phosphatase 45 Units/L (38-126) 01/29/17 04:22 Troponin I 0.00 ng/mL (0-0.03) 01/28/17 15:30 Serum Total Protein 6.2 g/dL (6.0-8.3) D 01/29/17 04:22 Albumin 3.2 g/dL (3.5-5.0) L D 01/29/17 04:22 Globulin 3.0 g/dL (2.4-3.5) 01/29/17 04:22 Albumin/Globulin Ratio 1.1 (1.1-2.2) 01/29/17 04:22 Amylase 46 Units/L (25-125) 01/28/17 15:30 Lipase 14 Units/L (8-78) 01/28/17 15:30 Urine Color Dark Yellow (Yellow) 01/28/17 10:55 Urine Clarity Cloudy (Clear) A 01/28/17 10:55 Urine pH 6.0 pH Units (5.0-8.0) 01/28/17 10:55 Ur Specific [place] > 1.030 (1.010-1.025) H 01/28/17 10:55 Urine Protein Trace mg/dL (Neg-Trace) 01/28/17 10:55 Urine Glucose (UA) Normal mg/dL (Normal) 01/28/17 10:55 Urine Ketones Negative mg/dL (Negative) 01/28/17 10:55 Urine Blood Negative (Negative) 01/28/17 10:55 Urine Nitrite Negative (Negative) 01/28/17 10:55 Urine Bilirubin Negative (Negative) 01/28/17 10:55 Urine Urobilinogen Normal mg/dL (Normal) 01/28/17 10:55 Ur Leukocyte Esterase Negative (Negative) 01/28/17 10:55 Urine Microscopic RBC 3-5 per hpf (0-3) H 01/28/17 10:55 Urine Microscopic WBC 5-15 per hpf (0-3) H 01/28/17 10:55 Ur Squamous Epith Cells Many per lpf (None-Few) H 01/28/17 10:55 Urine Bacteria Few per hpf (None-Few) 01/28/17 10:55 Hyaline Casts Moderate per lpf (None-Few) H 01/28/17 10:55 Granular Casts Few per lpf (None Seen) H 01/28/17 10:55 Urine Mucus Moderate (Few) H 01/28/17 10:55 Ur Culture Indicated? YES (NO) A 01/28/17 10:55 Urine Opiates Screen Positive ng/mL (Jibhhe=183) H 01/28/17 10:55 Ur Barbiturates Screen Negative ng/mL (Sspply=634) 01/28/17 10:55 Ur Phencyclidine Scrn Negative ng/mL (Cutoff=25) 01/28/17 10:55 Ur Amphetamines Screen Negative ng/mL (Exemds=7836) 01/28/17 10:55 U Benzodiazepines Scrn Positive ng/mL (Aojtoc=035) H 01/28/17 10:55 Urine Cocaine Screen Negative ng/mL (Cutoff= 300) 01/28/17 10:55 U Marijuana (THC) Screen Negative ng/mL (Cutoff = 50) 01/28/17 10:55 Consult Discharge Plan - Plan Referrals: NONE,PCP [Primary Care Provider] -
--- NOTE | 2017-01-29 15:06 | Electrocardiograph Report ---
[place] [id number] Test Date: 2017-01-28 Pat Name: Berenice Woods Department: 104 Room: 3A42 Gender: F [employer]: AM : 1970 Requested By: Chadwick Quiñones Order Number: [id number] Reading MD: Neeraj Yarbrough MD Measurements Intervals [place] Rate: 110 P: 48 [place]: 150 QRS: 62 QRSD: 82 T: 61 QT: 315 QTc: 380 Interpretive Statements SINUS TACHYCARDIA BASELINE ARTIFACT LEFT ATRIAL ENLARGEMENT Electronically Signed On 01-29-2017 15:04:00 EDT by Neeraj Yarbrough MD
[2017-01-30] MEDS: MetroNIDAZOLE 500 MG/100 ML 500 MG/100 ML BAG IVPB SCH ×3 (02:05→18:14)
[2017-01-30] MEDS: 0.9 % Sodium Chloride 1,000 ML IVC SCH ×2 (02:06→20:06)
[2017-01-30] MEDS: Pantoprazole 40 MG VIAL IVP SCH (06:10)
[2017-01-30] MEDS: *HR* Heparin 5,000 UNIT/ML VIAL SQ SCH ×2 (06:10→17:22)
[2017-01-30 07:16] LABS: Alanine Aminotransferase 12 Units/L (0-55); Albumin 2.6 g/dL (3.5-5.0); Albumin/Globulin Ratio 0.8 (1.1-2.2); Alkaline Phosphatase 54 Units/L (38-126); Aspartate Amino Transferase 22 Units/L (5-34); BUN/Creatinine Ratio 18 (6-26); Bilirubin,Total 3.3 mg/dL (0.2-1.2); Blood Urea Nitrogen 15 mg/dL (7-20); Calcium 8.6 mg/dL (8.6-10.8); Carbon Dioxide 25 mEq/L (19-29); Chloride 102 mEq/L (98-109); Globulin 3.2 g/dL (2.4-3.5); Glucose 87 mg/dL (70-99); Osmolality,Calculated 274 (280-300); Sodium 132 mEq/L (136-145); Total Protein 5.8 g/dL (6.0-8.3); eGFR For African Americans > 60 (> 60); eGFR For Non-African Americans > 60 (> 60)
--- NOTE | 2017-01-30 09:01 | General Surgery Progress Note ---
<Aneudy Alan - Last Filed: 01/30/17 08:59> Date of Encounter: 01/30/17 Time of Encounter: 06:30 - Assessment and Plan (1) Perforated ulcer of intestine Current Visit: Yes Status: Acute POD #2 Pyloroplasty and omental patch by Dr. Quiñones Pain continues to improve and patient endorses an appetite She is passing flatus but no BMs yet Bilirubin at 3.3, will continue to monitor Continue antibiotics Keep NPO except ice chips Plan to DC NGT tomorrow and start on clears (2) Hyperkalemia Current Visit: Yes Status: Resolved Resolved will continue to monitor (3) Generalized anxiety disorder Current Visit: Yes Status: Chronic Appreciate psych input Will start on sertraline when patient able to take po medications Subjective Patient reports: no new complaints, still having pain, pain is less, voiding w/ o difficulty, flatus, no bowel movement Objective Vital Signs - Last 8 Hours Temp Pulse Resp BP Pulse Ox 01/30/17 07:15 98.5 F 95 16 107/69 92 01/30/17 04:05 99.7 F H 109 16 121/76 93 Intake and Output 01/29/17 01/30/17 01/30/17 23:59 07:59 15:59 Intake Total 600 / 600 1300 / 1300 0 / 0 Output Total 375 / 375 200 / 200 Balance 225 / 225 1100 / 1100 0 / 0 Intake: IV Fluids 600 / 600 1300 / 1300 0.9 % Sodium Chloride 1, 300 / 300 1000 / 1000 000 ML @ 75 mls/hr IVC . [id number] [facility] Rx#: [id number] Cipro Premix 400 MG/200 200 / 200 200 / 200 ML 400 mg In 200 ml @ 200 mls/hr IVPB Q12HR [facility] Rx #:[id number] Flagyl Premix 500 MG/100 100 / 100 100 / 100 ML 500 mg In 100 ml @ 100 mls/hr IVPB Q8H [facility] Rx#: [id number] Oral 0 / 0 0 / 0 0 / 0 Output: Urine 375 / 375 200 / 200 Gastric Drainage 0 / 0 Other: Meal NPO NPO Percent of Meal Consumed 0% 0% # Bowel Movements 0 Weight 63.7 kg Blood Glucose* 79 78 Patient Weight 01/30/17 23:59 Weight 63.7 kg - General physical appearance well developed, well nourished, no distress - Eyes normal ocular movement - ENT atraumatic, normocephalic - Neck Neck exam: trachea midline - Respiratory normal expansion, normal respiratory effort, clear to auscultation - Cardiovascular Cardiovascular exam: Present: RRR - Abdomen Abdomen: Present: bowel sounds present (hypoactive), soft, non tender, tender ( expected postoperative tenderness) - Incision Incision: Present: clean and dry - Musculoskeletal normal posture - Psychiatric other (conversant and appropriate) - Labs 01/29/17 04:22 01/30/17 06:41 Diabetes panel 01/30/17 Range/Units 06:41 Sodium 132 L (136-145) mEq/L Potassium 4.0 D (3.5-4.5) mEq/L Chloride 102 (98-109) mEq/L Carbon Dioxide 25 (19-29) mEq/L BUN 15 (7-20) mg/dL Creatinine 0.85 (0.57-1.11) mg/dL Glucose 87 (70-99) mg/dL Calcium 8.6 (8.6-10.8) mg/dL AST 22 (5-34) Units/L ALT 12 (0-55) Units/L Alkaline Phosphatase 54 (38-126) Units/L Albumin 2.6 L (3.5-5.0) g/dL Calcium panel 01/30/17 Range/Units 06:41 Calcium 8.6 (8.6-10.8) mg/dL Albumin 2.6 L (3.5-5.0) g/dL Pituitary panel 01/30/17 Range/Units 06:41 Sodium 132 L (136-145) mEq/L Potassium 4.0 D (3.5-4.5) mEq/L Chloride 102 (98-109) mEq/L Carbon Dioxide 25 (19-29) mEq/L BUN 15 (7-20) mg/dL Creatinine 0.85 (0.57-1.11) mg/dL Glucose 87 (70-99) mg/dL Calcium 8.6 (8.6-10.8) mg/dL Adrenal panel 01/30/17 Range/Units 06:41 Sodium 132 L (136-145) mEq/L Potassium 4.0 D (3.5-4.5) mEq/L Chloride 102 (98-109) mEq/L Carbon Dioxide 25 (19-29) mEq/L BUN 15 (7-20) mg/dL Creatinine 0.85 (0.57-1.11) mg/dL Glucose 87 (70-99) mg/dL Calcium 8.6 (8.6-10.8) mg/dL Total Bilirubin 3.3 H (0.2-1.2) mg/dL AST 22 (5-34) Units/L ALT 12 (0-55) Units/L Alkaline Phosphatase 54 (38-126) Units/L Albumin 2.6 L (3.5-5.0) g/dL - VTE Documentation of Mechanical Device: Intermittent pneumatic compression device Consult Discharge Plan - Plan Referrals: NONE,PCP [Primary Care Provider] - <Chadwick Quiñones - Last Filed: 01/30/17 15:30> Date of Encounter: 01/30/17 - Assessment and Plan (1) Perforated ulcer of intestine Current Visit: Yes Status: Acute Objective Vital Signs - Last 8 Hours Temp Pulse Resp BP Pulse Ox 01/30/17 15:00 99.9 F H 95 16 105/69 95 01/30/17 10:51 100.0 F H 70 16 98/62 95 Intake and Output 01/29/17 01/30/17 01/30/17 23:59 07:59 15:59 Intake Total 600 / 600 1300 / 1300 300 / 300 Output Total 375 / 375 200 / 200 Balance 225 / 225 1100 / 1100 300 / 300 Intake: IV Fluids 600 / 600 1300 / 1300 300 / 300 0.9 % Sodium Chloride 1, 300 / 300 1000 / 1000 200 / 200 000 ML @ 75 mls/hr IVC . [id number] [facility] Rx#: [id number] Cipro Premix 400 MG/200 200 / 200 200 / 200 ML 400 mg In 200 ml @ 200 mls/hr IVPB Q12HR [facility] Rx #:[id number] Flagyl Premix 500 MG/100 100 / 100 100 / 100 100 / 100 ML 500 mg In 100 ml @ 100 mls/hr IVPB Q8H [facility] Rx#: [id number] Oral 0 / 0 0 / 0 0 / 0 Output: Urine 375 / 375 200 / 200 Gastric Drainage 0 / 0 Other: Meal NPO NPO Percent of Meal Consumed 0% 0% # Bowel Movements 0 Weight 63.7 kg Blood Glucose* 79 78 Patient Weight 01/30/17 23:59 Weight 63.7 kg - Labs 01/29/17 04:22 01/30/17 06:41 Diabetes panel 01/30/17 Range/Units 06:41 Sodium 132 L (136-145) mEq/L Potassium 4.0 D (3.5-4.5) mEq/L Chloride 102 (98-109) mEq/L Carbon Dioxide 25 (19-29) mEq/L BUN 15 (7-20) mg/dL Creatinine 0.85 (0.57-1.11) mg/dL Glucose 87 (70-99) mg/dL Calcium 8.6 (8.6-10.8) mg/dL AST 22 (5-34) Units/L ALT 12 (0-55) Units/L Alkaline Phosphatase 54 (38-126) Units/L Albumin 2.6 L (3.5-5.0) g/dL Calcium panel 01/30/17 Range/Units 06:41 Calcium 8.6 (8.6-10.8) mg/dL Albumin 2.6 L (3.5-5.0) g/dL Pituitary panel 01/30/17 Range/Units 06:41 Sodium 132 L (136-145) mEq/L Potassium 4.0 D (3.5-4.5) mEq/L Chloride 102 (98-109) mEq/L Carbon Dioxide 25 (19-29) mEq/L BUN 15 (7-20) mg/dL Creatinine 0.85 (0.57-1.11) mg/dL Glucose 87 (70-99) mg/dL Calcium 8.6 (8.6-10.8) mg/dL Adrenal panel 01/30/17 Range/Units 06:41 Sodium 132 L (136-145) mEq/L Potassium 4.0 D (3.5-4.5) mEq/L Chloride 102 (98-109) mEq/L Carbon Dioxide 25 (19-29) mEq/L BUN 15 (7-20) mg/dL Creatinine 0.85 (0.57-1.11) mg/dL Glucose 87 (70-99) mg/dL Calcium 8.6 (8.6-10.8) mg/dL Total Bilirubin 3.3 H (0.2-1.2) mg/dL AST 22 (5-34) Units/L ALT 12 (0-55) Units/L Alkaline Phosphatase 54 (38-126) Units/L Albumin 2.6 L (3.5-5.0) g/dL - Attending Attestation I examined this patient and my medical decision-making was reviewed with the Resident Physician. I agree with the documented findings, disposition and treatment plan as described except to the extent set forth below. The patient is seen in evaluated on morning rounds with the resident. She is progressing well after perforated duodenal ulcer. She has no bowel sounds yet. We will continue nasogastric tube drainage as well as IV hydration. Chadwick Quiñones MD FACS
[2017-01-30] MEDS: *HR* HYDROmorphone (PF) 1 MG/ML SYRINGE IVP PRN ×2 (10:07→20:07)
[2017-01-31] MEDS: MetroNIDAZOLE 500 MG/100 ML 500 MG/100 ML BAG IVPB SCH ×3 (03:04→20:00)
[2017-01-31 06:14] LABS: Hemoglobin 7.2 g/dL (11.5-15.4); Mean Corpuscular Volume 65.5 fL (83.0-100.0); Red Cell Distribution Width 18.4 % (11.5-14.5)
[2017-01-31] MEDS ORDERED: *HR* Dextrose 50 % in Water (Syg) 50 ML SYRINGE IVP ONE (06:16)
[2017-01-31 06:17] LABS: Hematocrit 25.4 % (35.3-44.9); Mean Corpuscular HGB Conc 28.3 g/dL (31.6-35.5); Mean Corpuscular Hemoglobin 18.6 pg (28.0-33.3); Mean Platelet Volume 10.9 fL (9.4-12.4); Red Blood Count 3.88 M/mcL (3.82-4.97)
[2017-01-31] MEDS ORDERED: *HR* Dextrose 50 % in Water (Syg) 50 ML SYRINGE ONE (06:18)
[2017-01-31] MEDS: *HR* Heparin 5,000 UNIT/ML VIAL SQ SCH ×2 (06:27→17:32)
[2017-01-31] MEDS: Pantoprazole 40 MG VIAL IVP SCH (06:27)
[2017-01-31 06:32] LABS: Alanine Aminotransferase 17 Units/L (0-55); Albumin 2.3 g/dL (3.5-5.0); Albumin/Globulin Ratio 0.7 (1.1-2.2); Alkaline Phosphatase 56 Units/L (38-126); Aspartate Amino Transferase 37 Units/L (5-34); BUN/Creatinine Ratio 15 (6-26); Bilirubin,Total 4.2 mg/dL (0.2-1.2); Blood Urea Nitrogen 11 mg/dL (7-20); Calcium 8.5 mg/dL (8.6-10.8); Carbon Dioxide 22 mEq/L (19-29); Chloride 106 mEq/L (98-109); Globulin 3.3 g/dL (2.4-3.5); Glucose 53 mg/dL (70-99); Osmolality,Calculated 279 (280-300); Potassium 3.7 mEq/L (3.5-4.5); Sodium 136 mEq/L (136-145); Total Protein 5.6 g/dL (6.0-8.3); eGFR For African Americans > 60 (> 60); eGFR For Non-African Americans > 60 (> 60)
--- NOTE | 2017-01-31 07:44 | General Surgery Progress Note ---
<Aneudy Alan - Last Filed: 01/31/17 17:39> Date of Encounter: 01/31/17 Time of Encounter: 06:15 - Assessment and Plan (1) Perforated ulcer of intestine Current Visit: Yes Status: Acute POD #3 Pyloroplasty and omental patch by Dr. Quiñones Patient endorses an appetite and denies pain Patient mentioned brief flatus, but has since reported that it has stopped Ileus possible at this point, so we will continue NGT and NPO Added glucose to IVF, prn glucose, and accuchecks as she has been NPO for several days now and had an episode of hypoglycemia this morning Bili increased to 4.2 <- 3.3 Started fluconazole for possible fungal GI cause, Continue flagyl, stopped cipro Keep NPO except ice chips (2) Pneumonia Current Visit: Yes Status: Acute CT showed pleural effusions and atelectasis PNA vs fluid overload Given rapid increase in WBC count, we favor PNA at this point Started levaquin Duonebs added Will continue to monitor Additionally added pedro, lasix for fluid overload management (3) Hyperkalemia Current Visit: Yes Status: Resolved Resolved will continue to monitor (5) Generalized anxiety disorder Current Visit: Yes Status: Chronic Appreciate psych input Will start on sertraline when patient able to take po medications (6) Leukocytosis Current Visit: Yes Status: Acute Rapid increase of WBC count from 9.6 to 23.0 She admits to some chills and night sweats, denies fever Ordered and reviewed CXR, UA, CT abd/pelv with IV and oral contrast See plan of care above for PNA (7) DVT prophylaxis Current Visit: No Status: Acute Heparin subq Subjective Patient reports: no new complaints, feels better, pain is less, afebrile Narrative: Patient endorses some chill and night sweats last night with increased pain. This has subsided as of this morning. Objective Vital Signs - Last 8 Hours Temp Pulse Resp BP Pulse Ox 01/31/17 04:15 99.0 F 100 14 107/72 90 Intake and Output 01/30/17 01/30/17 01/31/17 15:59 23:59 07:59 Intake Total 300 / 300 800 / 800 0 / 0 Output Total 600 / 600 0 / 0 Balance 300 / 300 200 / 200 0 / 0 Intake: IV Fluids 300 / 300 800 / 800 0.9 % Sodium Chloride 1, 200 / 200 500 / 500 000 ML @ 75 mls/hr IVC . [id number] [facility] Rx#: [id number] Cipro Premix 400 MG/200 200 / 200 ML 400 mg In 200 ml @ 200 mls/hr IVPB Q12HR [facility] Rx #:[id number] Flagyl Premix 500 MG/100 100 / 100 100 / 100 ML 500 mg In 100 ml @ 100 mls/hr IVPB Q8H [facility] Rx#: [id number] Oral 0 / 0 0 / 0 0 / 0 Output: Urine 400 / 400 0 / 0 Gastric Drainage 200 / 200 Other: Meal NPO NPO Percent of Meal Consumed 0% 0% # Voids 2 1 # Bowel Movements 1 Weight 63.957 kg Blood Glucose* 78 58 Patient Weight 01/31/17 23:59 Weight 63.957 kg - General physical appearance well developed, well nourished, no distress - Eyes normal ocular movement - ENT atraumatic, normocephalic - Neck Neck exam: trachea midline - Respiratory normal expansion, normal respiratory effort, clear to auscultation - Cardiovascular Cardiovascular exam: Present: tachycardia (low 100s) - Abdomen Abdomen: Present: bowel sounds present, soft, tender (expected postoperative tenderness). Absent: guarding, rebound Abdominal Tenderness: RUQ - Incision Incision: Present: clean and dry - Musculoskeletal normal posture - Psychiatric speech is normal - Labs 01/31/17 05:18 01/31/17 05:18 Diabetes panel 01/31/17 Range/Units 05:18 Sodium 136 (136-145) mEq/L Potassium 3.7 (3.5-4.5) mEq/L Chloride 106 (98-109) mEq/L Carbon Dioxide 22 (19-29) mEq/L BUN 11 (7-20) mg/dL Creatinine 0.71 (0.57-1.11) mg/dL Glucose 53 L (70-99) mg/dL Calcium 8.5 L (8.6-10.8) mg/dL AST 37 H (5-34) Units/L ALT 17 (0-55) Units/L Alkaline Phosphatase 56 (38-126) Units/L Albumin 2.3 L (3.5-5.0) g/dL Calcium panel 01/31/17 Range/Units 05:18 Calcium 8.5 L (8.6-10.8) mg/dL Albumin 2.3 L (3.5-5.0) g/dL Pituitary panel 01/31/17 Range/Units 05:18 Sodium 136 (136-145) mEq/L Potassium 3.7 (3.5-4.5) mEq/L Chloride 106 (98-109) mEq/L Carbon Dioxide 22 (19-29) mEq/L BUN 11 (7-20) mg/dL Creatinine 0.71 (0.57-1.11) mg/dL Glucose 53 L (70-99) mg/dL Calcium 8.5 L (8.6-10.8) mg/dL Adrenal panel 01/31/17 Range/Units 05:18 Sodium 136 (136-145) mEq/L Potassium 3.7 (3.5-4.5) mEq/L Chloride 106 (98-109) mEq/L Carbon Dioxide 22 (19-29) mEq/L BUN 11 (7-20) mg/dL Creatinine 0.71 (0.57-1.11) mg/dL Glucose 53 L (70-99) mg/dL Calcium 8.5 L (8.6-10.8) mg/dL Total Bilirubin 4.2 H (0.2-1.2) mg/dL AST 37 H (5-34) Units/L ALT 17 (0-55) Units/L Alkaline Phosphatase 56 (38-126) Units/L Albumin 2.3 L (3.5-5.0) g/dL - VTE Documentation of Mechanical Device: Intermittent pneumatic compression device Consult Discharge Plan - Plan Additional Instructions: Follow up in 1 week w/ Dr. Quiñones (2 weeks post-op) Referrals: Chadwick Quiñones MD [Partnered Physician] - 02/12/17 1:50 pm Prescriptions: OxyCODONE/APAP 5/325 [Percocet 5/325 MG] 1 each PO Q6HR PRN #28 tablet PRN Reason: Pain levoFLOXacin [Levaquin] 750 mg PO DAILY #5 tablet Omeprazole [PriLOSEC] 40 mg PO DAILY #90 cap <Dawna Catherine - Last Filed: 02/01/17 14:09> Date of Encounter: 02/01/17 Time of Encounter: 09:00 - Assessment and Plan (1) H/O pyloroplasty Current Visit: Yes Status: Acute await better return of bowel function before can start clears prn pain control gi/dvt prophylaxis - protonix iv BID OOB to chair/ambulate (2) Duodenal bulb ulcer perforation Current Visit: Yes Status: Acute s/p pylorplasty and omental patch (3) Leukocytosis Current Visit: Yes Status: Acute patient wbc 23 yday and down to 16.2 today, continue abx and diflucan Qualifiers: Leukocytosis type: unspecified Qualified Code(s): D72.829 - Elevated white blood cell count, unspecified Subjective Patient reports: feels better, still having pain, pain is less, flatus (once), no bowel movement Objective Vital Signs - Last 8 Hours Temp Pulse Resp BP Pulse Ox 02/01/17 10:59 97.2 F L 98 15 125/79 93 02/01/17 07:08 98.6 F 90 16 136/85 94 Intake and Output 01/31/17 02/01/17 02/01/17 23:59 07:59 15:59 Intake Total 100 / 100 1100 / 1100 Output Total 2750 / 2750 300 / 300 100 / 100 Balance -2650 / -2650 800 / 800 -100 / -100 Intake: IV Fluids 100 / 100 1100 / 1100 D5% And 0.9% Nacl 1000 Ml 1000 / 1000 1,000 ML @ 75 mls/hr IVC .[id number] [facility] Rx#: [id number] Diflucan Premix 200 MG/ 0 / 0 100 ML 200 mg In 100 ml @ 100 mls/hr IVPB DAILY [facility] Rx#:[id number] Levaquin Premix 750mg/150 0 / 0 mL 750 mg In 150 ml @ 100 mls/hr IVPB Q24H [facility] Rx#:[id number] Flagyl Premix 500 MG/100 100 / 100 100 / 100 ML 500 mg In 100 ml @ 100 mls/hr IVPB Q8H [facility] Rx#: [id number] Oral 0 / 0 Output: Catheter 2400 / 2400 300 / 300 100 / 100 Gastric Drainage 350 / 350 Other: Meal NPO Percent of Meal Consumed 0% Blood Glucose* 96 116 121 - General physical appearance well developed, well nourished, no distress - Eyes PERRL, normal ocular movement - ENT dry mucosa, atraumatic, normocephalic - Neck Neck exam: trachea midline - Respiratory normal expansion, clear to auscultation - Cardiovascular Cardiovascular exam: Present: RRR - Abdomen Abdomen: Present: bowel sounds present, soft, tender. Absent: guarding, rebound - Incision Incision: Present: clean and dry, intact - Integumentary no rash, no growths - Neurologic CN 2-12 grossly intact - Musculoskeletal normal posture - Psychiatric oriented to time, oriented to person, oriented to place, speech is normal, memory intact - Labs 02/01/17 05:48 02/01/17 05:48 Short CBC 02/01/17 Range/Units 05:48 WBC 16.2 H (4.3-11.1) K/mcL Hgb 6.6 L (11.5-15.4) g/dL Hct 23.4 L (35.3-44.9) % Plt Count 287 (140-400) K/mcL Neutrophils # 13.9 H (1.6-8.9) K/mcL BMP 02/01/17 Range/Units 05:48 Sodium 135 L (136-145) mEq/L Potassium 3.1 L (3.5-4.5) mEq/L Chloride 101 (98-109) mEq/L Carbon Dioxide 28 (19-29) mEq/L BUN 8 (7-20) mg/dL Creatinine 0.71 (0.57-1.11) mg/dL Glucose 99 (70-99) mg/dL Calcium 8.3 L (8.6-10.8) mg/dL Liver Function 02/01/17 Range/Units 05:48 Total Bilirubin 3.1 H (0.2-1.2) mg/dL Direct Bilirubin 1.9 H (0.0-0.5) mg/dL AST 29 (5-34) Units/L ALT 18 (0-55) Units/L Alkaline Phosphatase 53 (38-126) Units/L Albumin 2.2 L (3.5-5.0) g/dL Vital Signs Temp Pulse Resp BP Pulse Ox 02/01/17 10:59 97.2 F L 98 15 125/79 93 02/01/17 07:08 98.6 F 90 16 136/85 94 02/01/17 02:52 99.0 F 100 16 121/76 95 01/31/17 23:29 16 96 01/31/17 22:05 98.4 F 101 14 120/82 94 01/31/17 20:18 16 95 01/31/17 19:58 99.6 F 108 16 127/76 93 01/31/17 16:08 18 95 01/31/17 14:51 99.0 F 102 17 107/72 95 Intake and Output 01/31/17 02/01/17 02/01/17 23:59 07:59 15:59 Intake Total 100 / 100 1100 / 1100 Output Total 2750 / 2750 300 / 300 100 / 100 Balance -2650 / -2650 800 / 800 -100 / -100 Intake: IV Fluids 100 / 100 1100 / 1100 D5% And 0.9% Nacl 1000 Ml 1000 / 1000 1,000 ML @ 75 mls/hr IVC .[id number] [facility] Rx#: [id number] Diflucan Premix 200 MG/ 0 / 0 100 ML 200 mg In 100 ml @ 100 mls/hr IVPB DAILY [facility] Rx#:[id number] Levaquin Premix 750mg/150 0 / 0 mL 750 mg In 150 ml @ 100 mls/hr IVPB Q24H [facility] Rx#:[id number] Flagyl Premix 500 MG/100 100 / 100 100 / 100 ML 500 mg In 100 ml @ 100 mls/hr IVPB Q8H [facility] Rx#: [id number] Oral 0 / 0 Output: Catheter 2400 / 2400 300 / 300 100 / 100 Gastric Drainage 350 / 350 Other: Meal NPO Percent of Meal Consumed 0% Blood Glucose* 96 116 121 - Attending Attestation I examined this patient and my medical decision-making was reviewed with the Resident Physician. I agree with the documented findings, disposition and treatment plan as described except to the extent set forth below. <Chadwick Quiñones - Last Filed: 02/04/17 09:39> Date of Encounter: 01/31/17 - Assessment and Plan (1) Perforated ulcer of intestine Current Visit: Yes Status: Acute Objective Vital Signs - Last 8 Hours Temp Pulse Resp BP Pulse Ox 02/04/17 07:17 99 F 87 18 148/92 97 02/04/17 04:27 99.1 F 81 16 150/90 94 Intake and Output 0802/04/17 02/04/17 23:59 07:59 15:59 Intake Total 250 / 250 100 / 100 Output Total 200 / 200 Balance 250 / 250 -100 / -100 Intake: IV Fluids 250 / 250 100 / 100 Levaquin Premix 750mg/150 150 / 150 mL 750 mg In 150 ml @ 100 mls/hr IVPB Q24H [facility] Rx#:[id number] Flagyl Premix 500 MG/100 100 / 100 100 / 100 ML 500 mg In 100 ml @ 100 mls/hr IVPB Q8H [facility] Rx#: [id number] Oral 0 / 0 0 / 0 Output: Urine 200 / 200 Other: Stool Size Moderate Stool Consistency loose Stool Characteristics Normal for Patient Stool Color Black # Voids 1 7 # Bowel Movements 7 - Labs 02/04/17 05:20 02/04/17 05:20 Diabetes panel 02/04/17 Range/Units 05:20 Sodium 135 L (136-145) mEq/L Potassium 3.3 L (3.5-4.5) mEq/L Chloride 106 (98-109) mEq/L Carbon Dioxide 24 (19-29) mEq/L BUN 5 L (7-20) mg/dL Creatinine 0.66 (0.57-1.11) mg/dL Glucose 71 (70-99) mg/dL Calcium 8.3 L (8.6-10.8) mg/dL AST 25 (5-34) Units/L ALT 15 (0-55) Units/L Alkaline Phosphatase 49 (38-126) Units/L Albumin 2.3 L (3.5-5.0) g/dL Calcium panel 02/04/17 Range/Units 05:20 Calcium 8.3 L (8.6-10.8) mg/dL Albumin 2.3 L (3.5-5.0) g/dL Pituitary panel 02/04/17 Range/Units 05:20 Sodium 135 L (136-145) mEq/L Potassium 3.3 L (3.5-4.5) mEq/L Chloride 106 (98-109) mEq/L Carbon Dioxide 24 (19-29) mEq/L BUN 5 L (7-20) mg/dL Creatinine 0.66 (0.57-1.11) mg/dL Glucose 71 (70-99) mg/dL Calcium 8.3 L (8.6-10.8) mg/dL Adrenal panel 02/04/17 Range/Units 05:20 Sodium 135 L (136-145) mEq/L Potassium 3.3 L (3.5-4.5) mEq/L Chloride 106 (98-109) mEq/L Carbon Dioxide 24 (19-29) mEq/L BUN 5 L (7-20) mg/dL Creatinine 0.66 (0.57-1.11) mg/dL Glucose 71 (70-99) mg/dL Calcium 8.3 L (8.6-10.8) mg/dL Total Bilirubin 1.1 (0.2-1.2) mg/dL AST 25 (5-34) Units/L ALT 15 (0-55) Units/L Alkaline Phosphatase 49 (38-126) Units/L Albumin 2.3 L (3.5-5.0) g/dL
[2017-01-31] MEDS: *HR* HYDROmorphone (PF) 1 MG/ML SYRINGE IVP PRN (08:07)
[2017-01-31 08:26] LABS: Bilirubin,Indirect 2.3 mg/dL (0.0-1.2)
[2017-01-31 08:27] LABS: Bilirubin,Direct 1.9 mg/dL (0.0-0.5)
[2017-01-31] MEDS ORDERED: *HR* Dextrose 50 % in Water (Syg) 50 ML SYRINGE IVP PRN (12:24)
[2017-01-31] MEDS: Furosemide 40 MG/4 ML VIAL IVP SCH ×2 (12:36→20:00)
[2017-01-31] MEDS: D5% in 0.9% NACL 1,000 ML IVC SCH (12:44)
[2017-01-31 13:46] LABS: Bilirubin,Urine Negative (Negative); Blood,Urine Negative (Negative); Clarity,Urine Clear (Clear); Color,Urine Dark Yellow (Yellow); Glucose,Urine (UA) Normal (Normal); Ketones,Urine Trace mg/dL (Negative); Leukocyte Esterase,Urine Negative (Negative); Nitrite,Urine Negative (Negative); Protein,Urine Negative (Neg-Trace); Specific Gravity,Urine 1.026 (1.010-1.025); Urobilinogen,Urine Normal (Normal)
[2017-01-31] MEDS: Ipratropium/Albuterol Neb 3 ML IH SCH ×4 (16:06→23:29)
[2017-01-31] MEDS: Metoclopramide 10 MG/2 ML VIAL IVP SCH (17:32)
[2017-01-31] MEDS: Levofloxacin 750 MG/150 ML 750 MG/150 ML BAG IVPB SCH (19:12)
[2017-01-31] MEDS ORDERED: Fluconazole 200 MG/100 ML 200 MG/100 ML BAG IVPB SCH (21:30)
[2017-02-01] MEDS: Metoclopramide 10 MG/2 ML VIAL IVP SCH ×4 (00:35→18:14)
[2017-02-01] MEDS: Ipratropium/Albuterol Neb 3 ML IH SCH ×6 (03:41→23:35)
[2017-02-01] MEDS: MetroNIDAZOLE 500 MG/100 ML 500 MG/100 ML BAG IVPB SCH ×3 (03:48→19:42)
[2017-02-01] MEDS: *HR* Heparin 5,000 UNIT/ML VIAL SQ SCH ×2 (04:50→18:14)
[2017-02-01] MEDS: Pantoprazole 40 MG VIAL IVP SCH ×2 (04:50→19:42)
[2017-02-01 06:00] LABS: Basophils % 0.1 %; Hematocrit 23.4 % (35.3-44.9); Immature Granulocytes % 0.7 % (0-4)
[2017-02-01 06:01] LABS: Eosinophils # 0.1 K/mcL (0.0-0.6); Eosinophils % 0.4 %; Hemoglobin 6.6 g/dL (11.5-15.4); Lymphocytes # 0.9 K/mcL (0.6-4.6); Lymphocytes % 5.4 %; Mean Corpuscular HGB Conc 28.2 g/dL (31.6-35.5); Mean Corpuscular Hemoglobin 17.7 pg (28.0-33.3); Mean Corpuscular Volume 62.7 fL (83.0-100.0); Mean Platelet Volume 9.5 fL (9.4-12.4); Monocytes # 1.2 K/mcL (0.0-1.3); Monocytes % 7.5 %; Neutrophils # 13.9 K/mcL (1.6-8.9); Platelet Count 287 K/mcL (140-400); Red Blood Count 3.73 M/mcL (3.82-4.97); Red Cell Distribution Width 17.9 % (11.5-14.5); Segmented Neutrophils % 85.9 %
[2017-02-01 06:17] LABS: Alanine Aminotransferase 18 Units/L (0-55); Albumin 2.2 g/dL (3.5-5.0); Albumin/Globulin Ratio 0.6 (1.1-2.2); Alkaline Phosphatase 53 Units/L (38-126); Aspartate Amino Transferase 29 Units/L (5-34); BUN/Creatinine Ratio 11 (6-26); Bilirubin,Direct 1.9 mg/dL (0.0-0.5); Bilirubin,Indirect 1.2 mg/dL (0.0-1.2); Bilirubin,Total 3.1 mg/dL (0.2-1.2); Blood Urea Nitrogen 8 mg/dL (7-20); Calcium 8.3 mg/dL (8.6-10.8); Carbon Dioxide 28 mEq/L (19-29); Chloride 101 mEq/L (98-109); Globulin 3.6 g/dL (2.4-3.5); Glucose 99 mg/dL (70-99); Osmolality,Calculated 278 (280-300); Potassium 3.1 mEq/L (3.5-4.5); Sodium 135 mEq/L (136-145); Total Protein 5.8 g/dL (6.0-8.3); eGFR For African Americans > 60 (> 60); eGFR For Non-African Americans > 60 (> 60)
[2017-02-01 06:18] LABS: Platelet Estimate Normal (Normal)
[2017-02-01 06:19] LABS: Hypochromasia Present (Not Present)
[2017-02-01 06:20] LABS: Anisocytosis 1+ (Not Present)
[2017-02-01] MEDS: D5% in 0.9% NACL 1,000 ML IVC SCH (09:42)
[2017-02-01] MEDS ORDERED: Lidocaine Viscous Oral Soln 15 ML SOLUTION MM PRN (14:16)
--- NOTE | 2017-02-01 14:51 | General Surgery Progress Note ---
<Jeff Rodriguez - Last Filed: 02/01/17 15:14> Date of Encounter: 02/01/17 Time of Encounter: 09:00 - Assessment and Plan (1) Perforated ulcer of intestine Current Visit: Yes Status: Acute Post-operative Day #4 pyloroplasty and omental patch by Dr. Quiñones Patient denies nausea, vomiting, flatus, or bowel movement. Continue NPO except ice chips and NGT. CT indicates ileus and bibasilar atelectasis. CXR demonstrates fluid overload vs pneumonia. Continue antibiotic prophylaxis with levaquin day #1, flaguyl day #3, diflucan day #1. Patient's hypoglycemia is resolved (116<110<78). Continue accu checks. Total bili improved (3.1<4.2). Continue with supportive and pain care. Encourage ambulation TID. Wound care with wound dressing changes daily. (2) Pneumonia Current Visit: Yes Status: Acute WBC downtrending (16.2<23). Patient is asymptomatic. Continue antibiotic regimen with levaquin, flagyl, and diflucan. Qualifiers: Qualified Code(s): J18.9 - Pneumonia, unspecified organism (3) Anemia Current Visit: No Status: Acute Hemoglobin is downtrending (6.6 > 7.2 > no labs > 8.4). The patient's baseline is in the 7.0s. She is currently asymptomatic and does not have any new bleeds. Anemia likely secondary to IVF. Continue to monitor with a.m. labs. If hemoglobin falls below 6.0, we will consider blood transfusion. Qualifiers: Anemia type: iron deficiency Qualified Code(s): D50.8 - Other iron deficiency anemias (4) Generalized anxiety disorder Current Visit: No Status: Chronic Will restart sertraline when patient able to take PO medications. (5) Hyperbilirubinemia Current Visit: Yes Status: Acute total bilirubin downtrending (3.1< 4.2) Patient appears jaundice but states that it is her baseline. Continue to monitor with a.m. labs (6) DVT prophylaxis Current Visit: No Status: Acute Subjective Patient reports: no new complaints, feels better, voiding w/o difficulty (via catheter ), no flatus, no bowel movement, afebrile Objective Vital Signs - Last 8 Hours Temp Pulse Resp BP Pulse Ox 02/01/17 10:59 97.2 F L 98 15 125/79 93 02/01/17 07:08 98.6 F 90 16 136/85 94 Intake and Output 01/31/17 02/01/17 02/01/17 23:59 07:59 15:59 Intake Total 100 / 100 1100 / 1100 Output Total 2750 / 2750 300 / 300 100 / 100 Balance -2650 / -2650 800 / 800 -100 / -100 Intake: IV Fluids 100 / 100 1100 / 1100 D5% And 0.9% Nacl 1000 Ml 1000 / 1000 1,000 ML @ 75 mls/hr IVC .[id number] [facility] Rx#: [id number] Diflucan Premix 200 MG/ 0 / 0 100 ML 200 mg In 100 ml @ 100 mls/hr IVPB DAILY [facility] Rx#:[id number] Levaquin Premix 750mg/150 0 / 0 mL 750 mg In 150 ml @ 100 mls/hr IVPB Q24H [facility] Rx#:[id number] Flagyl Premix 500 MG/100 100 / 100 100 / 100 ML 500 mg In 100 ml @ 100 mls/hr IVPB Q8H [facility] Rx#: [id number] Oral 0 / 0 Output: Catheter 2400 / 2400 300 / 300 100 / 100 Gastric Drainage 350 / 350 Other: Meal NPO npo Percent of Meal Consumed 0% Blood Glucose* 96 116 121 - General physical appearance well developed, well nourished, no distress - Eyes normal ocular movement - ENT atraumatic, normocephalic, CN 2-12 grossly intact - Neck Neck exam: trachea midline - Respiratory normal expansion, clear to auscultation - Cardiovascular Cardiovascular exam: Present: RRR, no murmurs/rubs/gallops - Abdomen Abdomen: Present: bowel sounds present, soft, non tender - Incision Incision: Present: clean and dry, intact - Neurologic CN 2-12 grossly intact, normal coordination - Psychiatric speech is normal, memory intact - Labs 02/01/17 05:48 02/01/17 05:48 Diabetes panel 02/01/17 Range/Units 05:48 Sodium 135 L (136-145) mEq/L Potassium 3.1 L (3.5-4.5) mEq/L Chloride 101 (98-109) mEq/L Carbon Dioxide 28 (19-29) mEq/L BUN 8 (7-20) mg/dL Creatinine 0.71 (0.57-1.11) mg/dL Glucose 99 (70-99) mg/dL Calcium 8.3 L (8.6-10.8) mg/dL AST 29 (5-34) Units/L ALT 18 (0-55) Units/L Alkaline Phosphatase 53 (38-126) Units/L Albumin 2.2 L (3.5-5.0) g/dL Calcium panel 02/01/17 Range/Units 05:48 Calcium 8.3 L (8.6-10.8) mg/dL Albumin 2.2 L (3.5-5.0) g/dL Pituitary panel 02/01/17 Range/Units 05:48 Sodium 135 L (136-145) mEq/L Potassium 3.1 L (3.5-4.5) mEq/L Chloride 101 (98-109) mEq/L Carbon Dioxide 28 (19-29) mEq/L BUN 8 (7-20) mg/dL Creatinine 0.71 (0.57-1.11) mg/dL Glucose 99 (70-99) mg/dL Calcium 8.3 L (8.6-10.8) mg/dL Adrenal panel 02/01/17 Range/Units 05:48 Sodium 135 L (136-145) mEq/L Potassium 3.1 L (3.5-4.5) mEq/L Chloride 101 (98-109) mEq/L Carbon Dioxide 28 (19-29) mEq/L BUN 8 (7-20) mg/dL Creatinine 0.71 (0.57-1.11) mg/dL Glucose 99 (70-99) mg/dL Calcium 8.3 L (8.6-10.8) mg/dL Total Bilirubin 3.1 H (0.2-1.2) mg/dL AST 29 (5-34) Units/L ALT 18 (0-55) Units/L Alkaline Phosphatase 53 (38-126) Units/L Albumin 2.2 L (3.5-5.0) g/dL - VTE Documentation of Mechanical Device: Intermittent pneumatic compression device Consult Discharge Plan - Plan Referrals: NONE,PCP [Primary Care Provider] - <Dawna Catherine - Last Filed: 02/01/17 15:33> Date of Encounter: 02/01/17 - Assessment and Plan (1) H/O pyloroplasty Current Visit: Yes Status: Acute await improved return of bowel function ok ice chips continue ngt decompression until return of flatus prn pain control OOB to chair gi/dvt prophylasxi (2) Duodenal bulb ulcer perforation Current Visit: Yes Status: Resolved (3) Leukocytosis Current Visit: Yes Status: Acute monitor continue antibiotics Qualifiers: Leukocytosis type: unspecified Qualified Code(s): D72.829 - Elevated white blood cell count, unspecified Subjective Patient reports: feels better, still having pain, pain is less, voiding w/o difficulty, no flatus, no bowel movement, afebrile Objective Vital Signs - Last 8 Hours Temp Pulse Resp BP Pulse Ox 02/01/17 10:59 97.2 F L 98 15 125/79 93 Intake and Output 01/31/17 02/01/17 02/01/17 23:59 07:59 15:59 Intake Total 100 / 100 1100 / 1100 Output Total 2750 / 2750 300 / 300 100 / 100 Balance -2650 / -2650 800 / 800 -100 / -100 Intake: IV Fluids 100 / 100 1100 / 1100 D5% And 0.9% Nacl 1000 Ml 1000 / 1000 1,000 ML @ 75 mls/hr IVC .[id number] [facility] Rx#: [id number] Diflucan Premix 200 MG/ 0 / 0 100 ML 200 mg In 100 ml @ 100 mls/hr IVPB DAILY [facility] Rx#:[id number] Levaquin Premix 750mg/150 0 / 0 mL 750 mg In 150 ml @ 100 mls/hr IVPB Q24H [facility] Rx#:[id number] Flagyl Premix 500 MG/100 100 / 100 100 / 100 ML 500 mg In 100 ml @ 100 mls/hr IVPB Q8H [facility] Rx#: [id number] Oral 0 / 0 Output: Catheter 2400 / 2400 300 / 300 100 / 100 Gastric Drainage 350 / 350 Other: Meal NPO npo Percent of Meal Consumed 0% Blood Glucose* 96 116 121 - General physical appearance well developed, well nourished, no distress - Eyes normal ocular movement - ENT dry mucosa, atraumatic, normocephalic - Neck Neck exam: trachea midline - Respiratory normal expansion, clear to auscultation - Cardiovascular Cardiovascular exam: Present: RRR, no murmurs/rubs/gallops - Abdomen Abdomen: Present: bowel sounds present, soft, tender (appropriate post op tenderness) - Incision Incision: Present: clean and dry, intact - Integumentary no rash, no growths - Neurologic CN 2-12 grossly intact - Musculoskeletal normal posture - Psychiatric oriented to time, memory intact - Labs 02/01/17 05:48 02/01/17 05:48 Diabetes panel 02/01/17 Range/Units 05:48 Sodium 135 L (136-145) mEq/L Potassium 3.1 L (3.5-4.5) mEq/L Chloride 101 (98-109) mEq/L Carbon Dioxide 28 (19-29) mEq/L BUN 8 (7-20) mg/dL Creatinine 0.71 (0.57-1.11) mg/dL Glucose 99 (70-99) mg/dL Calcium 8.3 L (8.6-10.8) mg/dL AST 29 (5-34) Units/L ALT 18 (0-55) Units/L Alkaline Phosphatase 53 (38-126) Units/L Albumin 2.2 L (3.5-5.0) g/dL Calcium panel 02/01/17 Range/Units 05:48 Calcium 8.3 L (8.6-10.8) mg/dL Albumin 2.2 L (3.5-5.0) g/dL Pituitary panel 02/01/17 Range/Units 05:48 Sodium 135 L (136-145) mEq/L Potassium 3.1 L (3.5-4.5) mEq/L Chloride 101 (98-109) mEq/L Carbon Dioxide 28 (19-29) mEq/L BUN 8 (7-20) mg/dL Creatinine 0.71 (0.57-1.11) mg/dL Glucose 99 (70-99) mg/dL Calcium 8.3 L (8.6-10.8) mg/dL Adrenal panel 02/01/17 Range/Units 05:48 Sodium 135 L (136-145) mEq/L Potassium 3.1 L (3.5-4.5) mEq/L Chloride 101 (98-109) mEq/L Carbon Dioxide 28 (19-29) mEq/L BUN 8 (7-20) mg/dL Creatinine 0.71 (0.57-1.11) mg/dL Glucose 99 (70-99) mg/dL Calcium 8.3 L (8.6-10.8) mg/dL Total Bilirubin 3.1 H (0.2-1.2) mg/dL AST 29 (5-34) Units/L ALT 18 (0-55) Units/L Alkaline Phosphatase 53 (38-126) Units/L Albumin 2.2 L (3.5-5.0) g/dL - Attending Attestation I examined this patient and my medical decision-making was reviewed with the Resident Physician. I agree with the documented findings, disposition and treatment plan as described except to the extent set forth below.
[2017-02-01] MEDS: Levofloxacin 750 MG/150 ML 750 MG/150 ML BAG IVPB SCH (18:13)
[2017-02-02] MEDS: Metoclopramide 10 MG/2 ML VIAL IVP SCH ×5 (00:36→23:56)
[2017-02-02] MEDS: D5% in 0.9% NACL 1,000 ML IVC SCH (03:42)
[2017-02-02] MEDS: MetroNIDAZOLE 500 MG/100 ML 500 MG/100 ML BAG IVPB SCH ×3 (03:42→20:25)
[2017-02-02] MEDS: Ipratropium/Albuterol Neb 3 ML IH SCH ×5 (03:47→19:58)
[2017-02-02] MEDS: *HR* Heparin 5,000 UNIT/ML VIAL SQ SCH ×2 (06:10→18:44)
[2017-02-02 07:45] LABS: Hemoglobin 6.8 g/dL (11.5-15.4)
[2017-02-02 07:47] LABS: Basophils % 0.1 %; Eosinophils # 0.2 K/mcL (0.0-0.6); Eosinophils % 1.4 %; Immature Granulocytes % 0.6 % (0-4); Lymphocytes # 0.9 K/mcL (0.6-4.6); Mean Corpuscular HGB Conc 28.3 g/dL (31.6-35.5); Mean Corpuscular Volume 63.7 fL (83.0-100.0); Mean Platelet Volume 10.9 fL (9.4-12.4); Monocytes # 1.4 K/mcL (0.0-1.3); Monocytes % 12.2 %; Platelet Count 336 K/mcL (140-400); Red Blood Count 3.77 M/mcL (3.82-4.97); Red Cell Distribution Width 18.4 % (11.5-14.5); Segmented Neutrophils % 77.7 %
[2017-02-02 07:48] LABS: Neutrophils # 8.9 K/mcL (1.6-8.9)
[2017-02-02 07:53] LABS: BUN/Creatinine Ratio 13 (6-26); Blood Urea Nitrogen 8 mg/dL (7-20); Calcium 8.5 mg/dL (8.6-10.8); Carbon Dioxide 26 mEq/L (19-29); Chloride 106 mEq/L (98-109); Glucose 97 mg/dL (70-99); Magnesium 1.6 mg/dL (1.6-2.6); Osmolality,Calculated 284 (280-300); Phosphorous 2.7 mg/dL (2.3-4.7); Sodium 138 mEq/L (136-145); eGFR For African Americans > 60 (> 60); eGFR For Non-African Americans > 60 (> 60)
[2017-02-02] MEDS ORDERED: Potassium Chloride 40 MEQ, Lidocaine 1% 2 ML in D5% in Water 500 ML IVPB ONE (08:05)
[2017-02-02] MEDS: Pantoprazole 40 MG VIAL IVP SCH ×2 (08:37→20:26)
[2017-02-02] MEDS: D5% in 0.45% NACL w KCl 20 MEQ/1,000 ML MLS IVC SCH ×2 (08:38→23:56)
--- NOTE | 2017-02-02 11:11 | General Surgery Progress Note ---
<Jeff Rodriguez - Last Filed: 02/02/17 11:08> Date of Encounter: 02/02/17 Time of Encounter: 10:30 - Assessment and Plan (1) Perforated ulcer of intestine Current Visit: Yes Status: Acute Post-operative Day #4 pyloroplasty and omental patch by Dr. Quiñones NGT was taken out. Patient is tolerating clear liquid diet but would like to "take it lightly" and hold advancing diet for now. WBC downtrending 11.4/16.2/23.0 Continue antibiotic prophylaxis with levaquin, flagyl, diflucan. Continue with supportive and pain care. Encourage ambulation TID. Wound care with wound dressing changes daily. Encourage IS use Q1 hour when awake. (2) Pneumonia Current Visit: Yes Status: Acute WBC downtrending (11.4<16.2<23). Patient is asymptomatic. Continue antibiotic regimen with levaquin, flagyl, and diflucan. Qualifiers: Qualified Code(s): J18.9 - Pneumonia, unspecified organism (3) Anemia Current Visit: No Status: Acute Hemoglobin stabilizing (6.8>6.6 > 7.2). The patient's baseline is in the 7.0s. She is currently asymptomatic and does not have any new bleeds. Continue to monitor with a.m. labs. If hemoglobin falls below 6.0, we will consider blood transfusion. Qualifiers: Anemia type: iron deficiency Qualified Code(s): D50.8 - Other iron deficiency anemias (4) Generalized anxiety disorder Current Visit: No Status: Chronic Will restart sertraline when patient able to take PO medications. (5) Hyperbilirubinemia Current Visit: Yes Status: Acute total bilirubin downtrending (3.1< 4.2) Patient appears jaundice but states that it is her baseline. Continue to monitor with a.m. labs (6) DVT prophylaxis Current Visit: No Status: Acute Subjective Patient reports: no new complaints, feels better, voiding w/o difficulty, flatus , bowel movement, afebrile Objective Vital Signs - Last 8 Hours Temp Pulse Resp BP Pulse Ox 02/02/17 06:30 98.6 F 87 16 133/86 94 02/02/17 05:19 98.0 F 95 18 152/83 93 02/02/17 05:01 98.0 F 95 18 152/83 93 Intake and Output 02/01/17 02/02/17 02/02/17 23:59 07:59 15:59 Intake Total 2700 / 2700 0 / 0 367 / 367 Output Total 200 / 200 750 / 750 Balance 2500 / 2500 -750 / -750 367 / 367 Intake: IV Fluids 2700 / 2700 367 / 367 D5% And 0.9% Nacl 1000 Ml 1550 / 1550 367 / 367 1,000 ML @ 75 mls/hr IVC .[id number] [facility] Rx#: [id number] Levaquin Premix 750mg/150 150 / 150 mL 750 mg In 150 ml @ 100 mls/hr IVPB Q24H [facility] Rx#:[id number] Flagyl Premix 500 MG/100 1000 / 1000 ML 500 mg In 100 ml @ 100 mls/hr IVPB Q8H [facility] Rx#: [id number] Oral 0 / 0 0 / 0 Output: Catheter 0 / 0 350 / 350 Gastric Drainage 200 / 200 400 / 400 Other: Meal NPO Breakfast NPO Stool Size Moderate Small Moderate Stool Consistency soft soft loose Stool Characteristics Pasty Stool Color Brown Brown Brown Green Blood Tinged # Bowel Movements 3 1 Weight 63.4 kg Blood Glucose* 102 86 Patient Weight 02/02/17 23:59 Weight 63.4 kg - General physical appearance well developed, well nourished, no distress - Eyes normal ocular movement - ENT atraumatic, normocephalic, CN 2-12 grossly intact - Neck Neck exam: trachea midline - Respiratory normal expansion, clear to auscultation - Cardiovascular Cardiovascular exam: Present: RRR, no murmurs/rubs/gallops - Abdomen Abdomen: Present: bowel sounds present, soft, non tender - Incision Incision: Present: clean and dry, intact - Neurologic CN 2-12 grossly intact, normal coordination, normal sensation - Psychiatric speech is normal, memory intact - Labs 02/02/17 06:29 02/02/17 06:29 Diabetes panel 02/02/17 Range/Units 06:29 Sodium 138 (136-145) mEq/L Potassium 3.0 L (3.5-4.5) mEq/L Chloride 106 (98-109) mEq/L Carbon Dioxide 26 (19-29) mEq/L BUN 8 (7-20) mg/dL Creatinine 0.63 (0.57-1.11) mg/dL Glucose 97 (70-99) mg/dL Calcium 8.5 L (8.6-10.8) mg/dL Calcium panel 02/02/17 Range/Units 06:29 Calcium 8.5 L (8.6-10.8) mg/dL Phosphorus 2.7 (2.3-4.7) mg/dL Pituitary panel 02/02/17 Range/Units 06:29 Sodium 138 (136-145) mEq/L Potassium 3.0 L (3.5-4.5) mEq/L Chloride 106 (98-109) mEq/L Carbon Dioxide 26 (19-29) mEq/L BUN 8 (7-20) mg/dL Creatinine 0.63 (0.57-1.11) mg/dL Glucose 97 (70-99) mg/dL Calcium 8.5 L (8.6-10.8) mg/dL Adrenal panel 02/02/17 Range/Units 06:29 Sodium 138 (136-145) mEq/L Potassium 3.0 L (3.5-4.5) mEq/L Chloride 106 (98-109) mEq/L Carbon Dioxide 26 (19-29) mEq/L BUN 8 (7-20) mg/dL Creatinine 0.63 (0.57-1.11) mg/dL Glucose 97 (70-99) mg/dL Calcium 8.5 L (8.6-10.8) mg/dL - VTE Documentation of Mechanical Device: Intermittent pneumatic compression device Consult Discharge Plan - Plan Referrals: NONE,PCP [Primary Care Provider] - <Dawna Catherine - Last Filed: 02/02/17 11:31> Date of Encounter: 02/02/17 - Assessment and Plan (1) H/O pyloroplasty Current Visit: Yes Status: Acute dc ngt, start clears change ivf replace potassium continue prn pain control gi/dvt prophylaxis OOB to chair for all meals (2) Duodenal bulb ulcer perforation Current Visit: Yes Status: Resolved (3) Leukocytosis Current Visit: Yes Status: Acute improving, continue abx, monitor Qualifiers: Leukocytosis type: unspecified Qualified Code(s): D72.829 - Elevated white blood cell count, unspecified Subjective Patient reports: no new complaints, feels better, still having pain, pain is less, flatus, bowel movement Objective Vital Signs - Last 8 Hours Temp Pulse Resp BP Pulse Ox 02/02/17 06:30 98.6 F 87 16 133/86 94 02/02/17 05:19 98.0 F 95 18 152/83 93 02/02/17 05:01 98.0 F 95 18 152/83 93 Intake and Output 02/01/17 02/02/17 02/02/17 23:59 07:59 15:59 Intake Total 2700 / 2700 0 / 0 367 / 367 Output Total 200 / 200 750 / 750 Balance 2500 / 2500 -750 / -750 367 / 367 Intake: IV Fluids 2700 / 2700 367 / 367 D5% And 0.9% Nacl 1000 Ml 1550 / 1550 367 / 367 1,000 ML @ 75 mls/hr IVC .[id number] [facility] Rx#: [id number] Levaquin Premix 750mg/150 150 / 150 mL 750 mg In 150 ml @ 100 mls/hr IVPB Q24H [facility] Rx#:[id number] Flagyl Premix 500 MG/100 1000 / 1000 ML 500 mg In 100 ml @ 100 mls/hr IVPB Q8H [facility] Rx#: [id number] Oral 0 / 0 0 / 0 Output: Catheter 0 / 0 350 / 350 Gastric Drainage 200 / 200 400 / 400 Other: Meal NPO Breakfast NPO Stool Size Moderate Small Moderate Stool Consistency soft soft loose Stool Characteristics Pasty Stool Color Brown Brown Brown Green Blood Tinged # Bowel Movements 3 1 Weight 63.4 kg Blood Glucose* 102 86 Patient Weight 02/02/17 23:59 Weight 63.4 kg - General physical appearance well developed, well nourished, no distress - Eyes PERRL, normal ocular movement - ENT normal mucosa, atraumatic, normocephalic - Neck Neck exam: trachea midline - Respiratory normal expansion, clear to auscultation - Cardiovascular Cardiovascular exam: Present: RRR, no murmurs/rubs/gallops - Abdomen Abdomen: Present: bowel sounds present, soft, tender (appropriate post op tenderness) - Incision Incision: Present: clean and dry, intact - Integumentary no rash, no growths - Neurologic CN 2-12 grossly intact - Musculoskeletal normal posture - Psychiatric oriented to time, oriented to person, oriented to place, speech is normal, memory intact - Labs 02/02/17 06:29 02/02/17 06:29 Short CBC 02/02/17 Range/Units 06:29 WBC 11.4 H (4.3-11.1) K/mcL Hgb 6.8 L (11.5-15.4) g/dL Hct 24.0 L (35.3-44.9) % Plt Count 336 (140-400) K/mcL Neutrophils # 8.9 (1.6-8.9) K/mcL BMP 02/02/17 Range/Units 06:29 Sodium 138 (136-145) mEq/L Potassium 3.0 L (3.5-4.5) mEq/L Chloride 106 (98-109) mEq/L Carbon Dioxide 26 (19-29) mEq/L BUN 8 (7-20) mg/dL Creatinine 0.63 (0.57-1.11) mg/dL Glucose 97 (70-99) mg/dL Calcium 8.5 L (8.6-10.8) mg/dL Vital Signs Temp Pulse Resp BP Pulse Ox 02/02/17 06:30 98.6 F 87 16 133/86 94 02/02/17 05:19 98.0 F 95 18 152/83 93 02/02/17 05:01 98.0 F 95 18 152/83 93 02/02/17 00:44 97.4 F L 103 18 143/89 92 02/01/17 20:10 99.7 F H 100 18 136/87 93 02/01/17 16:17 98.6 F 95 16 134/85 93 Intake and Output 02/01/17 02/02/17 02/02/17 23:59 07:59 15:59 Intake Total 2700 / 2700 0 / 0 367 / 367 Output Total 200 / 200 750 / 750 Balance 2500 / 2500 -750 / -750 367 / 367 Intake: IV Fluids 2700 / 2700 367 / 367 D5% And 0.9% Nacl 1000 Ml 1550 / 1550 367 / 367 1,000 ML @ 75 mls/hr IVC .[id number] [facility] Rx#: [id number] Levaquin Premix 750mg/150 150 / 150 mL 750 mg In 150 ml @ 100 mls/hr IVPB Q24H [facility] Rx#:[id number] Flagyl Premix 500 MG/100 1000 / 1000 ML 500 mg In 100 ml @ 100 mls/hr IVPB Q8H [facility] Rx#: [id number] Oral 0 / 0 0 / 0 Output: Catheter 0 / 0 350 / 350 Gastric Drainage 200 / 200 400 / 400 Other: Meal NPO Breakfast NPO Stool Size Moderate Small Moderate Stool Consistency soft soft loose Stool Characteristics Pasty Stool Color Brown Brown Brown Green Blood Tinged # Bowel Movements 3 1 Weight 63.4 kg Blood Glucose* 102 86 Patient Weight 02/02/17 23:59 Weight 63.4 kg - Attending Attestation I examined this patient and my medical decision-making was reviewed with the Resident Physician. I agree with the documented findings, disposition and treatment plan as described except to the extent set forth below.
[2017-02-02] MEDS ORDERED: *HR* OxyCODONE/APAP 5/325 TABLET PO PRN (14:08)
[2017-02-02] MEDS: Sucralfate 1 GM TABLET PO SCH ×3 (16:34→20:25)
[2017-02-02] MEDS: Levofloxacin 750 MG/150 ML 750 MG/150 ML BAG IVPB SCH (18:42)
[2017-02-03] MEDS: Ipratropium/Albuterol Neb 3 ML IH SCH ×7 (00:12→23:04)
[2017-02-03] MEDS: MetroNIDAZOLE 500 MG/100 ML 500 MG/100 ML BAG IVPB SCH ×3 (03:08→17:02)
[2017-02-03 04:57] LABS: Basophils % 0.2 %; Immature Granulocytes % 0.7 % (0-4)
[2017-02-03 04:58] LABS: Eosinophils # 0.3 K/mcL (0.0-0.6); Eosinophils % 3.1 %; Hematocrit 23.9 % (35.3-44.9); Hemoglobin 6.6 g/dL (11.5-15.4); Lymphocytes # 1.4 K/mcL (0.6-4.6); Lymphocytes % 15.3 %; Mean Corpuscular HGB Conc 27.6 g/dL (31.6-35.5); Mean Corpuscular Hemoglobin 17.7 pg (28.0-33.3); Mean Corpuscular Volume 64.2 fL (83.0-100.0); Mean Platelet Volume 10.8 fL (9.4-12.4); Monocytes # 1.2 K/mcL (0.0-1.3); Monocytes % 12.9 %; Neutrophils # 6.4 K/mcL (1.6-8.9); Nucleated Red Blood Cells 0.2 /100 WBC (0); Platelet Count 342 K/mcL (140-400); Red Blood Count 3.72 M/mcL (3.82-4.97); Red Cell Distribution Width 18.3 % (11.5-14.5); Segmented Neutrophils % 67.8 %
[2017-02-03 05:14] LABS: Alanine Aminotransferase 14 Units/L (0-55); Albumin 2.3 g/dL (3.5-5.0); Albumin/Globulin Ratio 0.7 (1.1-2.2); Alkaline Phosphatase 49 Units/L (38-126); Aspartate Amino Transferase 18 Units/L (5-34); BUN/Creatinine Ratio 8 (6-26); Bilirubin,Total 1.2 mg/dL (0.2-1.2); Blood Urea Nitrogen 5 mg/dL (7-20); Calcium 8.4 mg/dL (8.6-10.8); Carbon Dioxide 24 mEq/L (19-29); Chloride 105 mEq/L (98-109); Globulin 3.4 g/dL (2.4-3.5); Glucose 84 mg/dL (70-99); Osmolality,Calculated 276 (280-300); Potassium 3.1 mEq/L (3.5-4.5); Sodium 135 mEq/L (136-145); Total Protein 5.7 g/dL (6.0-8.3); eGFR For African Americans > 60 (> 60); eGFR For Non-African Americans > 60 (> 60)
[2017-02-03 05:46] LABS: Hypochromasia Present (Not Present); Platelet Estimate Normal (Normal)
[2017-02-03 05:47] LABS: Anisocytosis 1+ (Not Present)
[2017-02-03] MEDS: Metoclopramide 10 MG/2 ML VIAL IVP SCH ×4 (06:55→23:17)
[2017-02-03] MEDS: *HR* Heparin 5,000 UNIT/ML VIAL SQ SCH ×2 (06:56→17:01)
[2017-02-03] MEDS: Sucralfate 1 GM TABLET PO SCH ×4 (07:11→21:14)
[2017-02-03] MEDS: Pantoprazole 40 MG VIAL IVP SCH ×2 (07:12→21:14)
[2017-02-03] MEDS ORDERED: Potassium Chloride 40 MEQ, Lidocaine 1% 2 ML in D5% in Water 500 ML IVPB ONE (07:15)
--- NOTE | 2017-02-03 08:48 | General Surgery Progress Note ---
<Aneudy Alan - Last Filed: 02/03/17 15:24> Date of Encounter: 02/03/17 Time of Encounter: 08:30 - Assessment and Plan (1) Perforated ulcer of intestine Current Visit: Yes Status: Acute POD #6 Pyloroplasty and omental patch by Dr. Quiñones Patient endorses an appetite and denies pain Patient tolerating clears, advancing to fulls for lunch Patient having flatus and bowel movements WBC downtrending 9.4 < 11.4 < 16.2 < 23.0 Continue antibiotics for PNA coverage with levaquin, flagyl, diflucan. Continue with supportive and pain care. Encourage ambulation TID. Wound care with wound dressing changes daily. Encourage IS use Q1 hour when awake. (2) Pneumonia Current Visit: Yes Status: Acute WBC downtrending (9.4<11.4<16.2<23). Patient is asymptomatic. Continue antibiotic regimen with levaquin, flagyl, and diflucan. (3) Hyperkalemia Current Visit: Yes Status: Resolved Resolved and has transitioned to hypokalemia, see plan below will continue to monitor (4) Hypokalemia Current Visit: Yes Status: Acute Postassium stable around 3.0-3.1 40 meq K given this am Continue monitoring (5) Generalized anxiety disorder Current Visit: No Status: Chronic Appreciate psych input Continue sertraline (6) Leukocytosis Current Visit: Yes Status: Resolved WBC decreased 9.4 < 11.4 Qualifiers: Leukocytosis type: unspecified Qualified Code(s): D72.829 - Elevated white blood cell count, unspecified (7) DVT prophylaxis Current Visit: Yes Status: Acute Heparin subq Subjective Patient reports: no new complaints, feels better, tolerating liquids well (is able to eat jello), voiding w/o difficulty, flatus, bowel movement, afebrile Objective Vital Signs - Last 8 Hours Temp Pulse Resp BP Pulse Ox 02/03/17 06:30 98.7 F 82 16 143/89 95 02/03/17 04:43 98.7 F 84 18 148/96 94 Intake and Output 02/02/17 02/03/17 02/03/17 23:59 07:59 15:59 Intake Total 1320 / 1320 550 / 550 Output Total 200 / 200 Balance 1120 / 1120 549 / 549 Intake: IV Fluids 1200 / 1200 550 / 550 KCl 20mEq IN D5%-0.45 1000 / 1000 300 / 300 NACL 20 meq In 1,000 ml @ 75 mls/hr IVC .[id number] [facility] Rx#:[id number] Levaquin Premix 750mg/150 150 / 150 mL 750 mg In 150 ml @ 100 mls/hr IVPB Q24H [facility] Rx#:[id number] Flagyl Premix 500 MG/100 200 / 200 100 / 100 ML 500 mg In 100 ml @ 100 mls/hr IVPB Q8H [facility] Rx#: [id number] Oral 120 / 120 0 / 0 Output: Urine 200 / 200 Urine/Stool Mix Other: Meal Dinner Stool Size Small Small Stool Consistency loose soft Stool Color Brown Brown # Voids 1 # Bowel Movements 1 Weight 63.2 kg Patient Weight 02/03/17 23:59 Weight 63.2 kg - General physical appearance well developed, well nourished, no distress - Eyes normal ocular movement - ENT atraumatic, normocephalic, CN 2-12 grossly intact - Neck Neck exam: no masses, no bruits, trachea midline, no lymphadectomy, no venous distension - Respiratory normal expansion, normal respiratory effort, clear to auscultation - Cardiovascular Cardiovascular exam: Present: RRR, no murmurs/rubs/gallops - Abdomen Abdomen: Present: bowel sounds present, soft, tender (expected postoperative tenderness at the incision) - Incision Incision: Present: clean and dry, intact - Neurologic CN 2-12 grossly intact, normal sensation - Musculoskeletal normal posture - Psychiatric speech is normal, memory intact - Labs 02/03/17 03:51 02/03/17 03:51 Diabetes panel 02/03/17 Range/Units 03:51 Sodium 135 L (136-145) mEq/L Potassium 3.1 L (3.5-4.5) mEq/L Chloride 105 (98-109) mEq/L Carbon Dioxide 24 (19-29) mEq/L BUN 5 L (7-20) mg/dL Creatinine 0.64 (0.57-1.11) mg/dL Glucose 84 (70-99) mg/dL Calcium 8.4 L (8.6-10.8) mg/dL AST 18 (5-34) Units/L ALT 14 (0-55) Units/L Alkaline Phosphatase 49 (38-126) Units/L Albumin 2.3 L (3.5-5.0) g/dL Calcium panel 02/03/17 Range/Units 03:51 Calcium 8.4 L (8.6-10.8) mg/dL Albumin 2.3 L (3.5-5.0) g/dL Pituitary panel 02/03/17 Range/Units 03:51 Sodium 135 L (136-145) mEq/L Potassium 3.1 L (3.5-4.5) mEq/L Chloride 105 (98-109) mEq/L Carbon Dioxide 24 (19-29) mEq/L BUN 5 L (7-20) mg/dL Creatinine 0.64 (0.57-1.11) mg/dL Glucose 84 (70-99) mg/dL Calcium 8.4 L (8.6-10.8) mg/dL Adrenal panel 02/03/17 Range/Units 03:51 Sodium 135 L (136-145) mEq/L Potassium 3.1 L (3.5-4.5) mEq/L Chloride 105 (98-109) mEq/L Carbon Dioxide 24 (19-29) mEq/L BUN 5 L (7-20) mg/dL Creatinine 0.64 (0.57-1.11) mg/dL Glucose 84 (70-99) mg/dL Calcium 8.4 L (8.6-10.8) mg/dL Total Bilirubin 1.2 D (0.2-1.2) mg/dL AST 18 (5-34) Units/L ALT 14 (0-55) Units/L Alkaline Phosphatase 49 (38-126) Units/L Albumin 2.3 L (3.5-5.0) g/dL - VTE Documentation of Mechanical Device: Intermittent pneumatic compression device Consult Discharge Plan - Plan Referrals: NONE,PCP [Primary Care Provider] - <Dawna Catherine - Last Filed: 02/03/17 16:06> Date of Encounter: 02/03/17 - Assessment and Plan (1) H/O pyloroplasty Current Visit: Yes Status: Acute continue po, advance to fulls po pain control protonix and carafate OOB ambulate (2) Duodenal bulb ulcer perforation Current Visit: Yes Status: Resolved (3) Leukocytosis Current Visit: Yes Status: Resolved Qualifiers: Leukocytosis type: unspecified Qualified Code(s): D72.829 - Elevated white blood cell count, unspecified Subjective Patient reports: no new complaints, feels better, still having pain, pain is less, tolerating liquids well, flatus, bowel movement Objective Vital Signs - Last 8 Hours Temp Pulse Resp BP Pulse Ox 02/03/17 14:23 98.4 F 87 18 145/90 96 02/03/17 11:30 97.7 F 86 16 146/93 94 Intake and Output 02/03/17 02/03/17 02/03/17 07:59 15:59 23:59 Intake Total 550 / 550 1442 / 1442 Output Total 700 / 700 Balance 549 / 549 742 / 742 Intake: IV Fluids 550 / 550 1122 / 1122 KCl 20mEq IN D5%-0.45 300 / 300 450 / 450 NACL 20 meq In 1,000 ml @ 75 mls/hr IVC .[id number] [facility] Rx#:[id number] Diflucan 100 MG/50 ML 100 50 / 50 mg In 50 ml @ 50 mls/hr IVPB DAILY [facility] Rx#: [id number] Levaquin Premix 750mg/150 150 / 150 mL 750 mg In 150 ml @ 100 mls/hr IVPB Q24H [facility] Rx#:[id number] Flagyl Premix 500 MG/100 100 / 100 100 / 100 ML 500 mg In 100 ml @ 100 mls/hr IVPB Q8H [facility] Rx#: [id number] KCl 40 MEQ Xylocaine 2 ML 522 / 522 In Dextrose 5% 500 ML @ 130.5 mls/hr IVPB ONCE [facility] Rx#:[id number] Oral 0 / 0 320 / 320 Output: Urine 700 / 700 Urine/Stool Mix 1 / Other: Meal Lunch Percent of Meal Consumed 5% Stool Size Small Small Stool Consistency soft loose liquid Stool Color Brown Brown Black # Voids 1 Weight 63.2 kg 63.2 kg Blood Glucose* 86 Patient Weight 02/03/17 23:59 Weight 63.2 kg - General physical appearance well developed, well nourished, moderate pain - Abdomen Abdomen: Present: bowel sounds present, soft, tender Abdominal Tenderness: epigastic - Incision Incision: Present: clean and dry, intact - Labs 02/03/17 03:51 02/03/17 03:51 Diabetes panel 02/03/17 Range/Units 03:51 Sodium 135 L (136-145) mEq/L Potassium 3.1 L (3.5-4.5) mEq/L Chloride 105 (98-109) mEq/L Carbon Dioxide 24 (19-29) mEq/L BUN 5 L (7-20) mg/dL Creatinine 0.64 (0.57-1.11) mg/dL Glucose 84 (70-99) mg/dL Calcium 8.4 L (8.6-10.8) mg/dL AST 18 (5-34) Units/L ALT 14 (0-55) Units/L Alkaline Phosphatase 49 (38-126) Units/L Albumin 2.3 L (3.5-5.0) g/dL Calcium panel 02/03/17 Range/Units 03:51 Calcium 8.4 L (8.6-10.8) mg/dL Albumin 2.3 L (3.5-5.0) g/dL Pituitary panel 02/03/17 Range/Units 03:51 Sodium 135 L (136-145) mEq/L Potassium 3.1 L (3.5-4.5) mEq/L Chloride 105 (98-109) mEq/L Carbon Dioxide 24 (19-29) mEq/L BUN 5 L (7-20) mg/dL Creatinine 0.64 (0.57-1.11) mg/dL Glucose 84 (70-99) mg/dL Calcium 8.4 L (8.6-10.8) mg/dL Adrenal panel 02/03/17 Range/Units 03:51 Sodium 135 L (136-145) mEq/L Potassium 3.1 L (3.5-4.5) mEq/L Chloride 105 (98-109) mEq/L Carbon Dioxide 24 (19-29) mEq/L BUN 5 L (7-20) mg/dL Creatinine 0.64 (0.57-1.11) mg/dL Glucose 84 (70-99) mg/dL Calcium 8.4 L (8.6-10.8) mg/dL Total Bilirubin 1.2 D (0.2-1.2) mg/dL AST 18 (5-34) Units/L ALT 14 (0-55) Units/L Alkaline Phosphatase 49 (38-126) Units/L Albumin 2.3 L (3.5-5.0) g/dL - Attending Attestation I examined this patient and my medical decision-making was reviewed with the Resident Physician. I agree with the documented findings, disposition and treatment plan as described except to the extent set forth below.
[2017-02-03] MEDS: Fluconazole 100 MG/50 ML 100 MG/50 ML BAG IVPB SCH (08:59)
[2017-02-03] MEDS: Levofloxacin 750 MG/150 ML 750 MG/150 ML BAG IVPB SCH (17:01)
[2017-02-04] MEDS: MetroNIDAZOLE 500 MG/100 ML 500 MG/100 ML BAG IVPB SCH ×2 (02:58→11:57)
[2017-02-04] MEDS: Ipratropium/Albuterol Neb 3 ML IH SCH ×3 (03:59→11:13)
[2017-02-04] MEDS: *HR* Heparin 5,000 UNIT/ML VIAL SQ SCH (05:40)
[2017-02-04] MEDS: Metoclopramide 10 MG/2 ML VIAL IVP SCH ×2 (05:40→11:57)
[2017-02-04 06:31] LABS: Hematocrit 23.5 % (35.3-44.9); Hemoglobin 6.8 g/dL (11.5-15.4); Mean Corpuscular HGB Conc 28.9 g/dL (31.6-35.5); Mean Corpuscular Hemoglobin 18.7 pg (28.0-33.3); Mean Corpuscular Volume 64.6 fL (83.0-100.0); Mean Platelet Volume 10.8 fL (9.4-12.4); Platelet Count 363 K/mcL (140-400); Red Blood Count 3.64 M/mcL (3.82-4.97); Red Cell Distribution Width 18.9 % (11.5-14.5)
--- NOTE | 2017-02-04 06:34 | General Surgery Progress Note ---
Date of Encounter: 02/04/17 Time of Encounter: 06:31 - Assessment and Plan (1) Perforated ulcer of intestine Current Visit: Yes Status: Acute POD #7 Pyloroplasty and omental patch by Dr. Quiñones Patient endorses an appetite and denies pain Patient tolerating fulls, advancing to regular diet Patient having flatus and bowel movements WBC count normal at 9.4 for the last two days Continue antibiotics for PNA coverage with levaquin, flagyl, diflucan. Continue with supportive and pain care. Encourage ambulation TID. Wound care with wound dressing changes daily. Encourage IS use Q1 hour when awake. (2) Pneumonia Current Visit: Yes Status: Acute WBC normal at 9.4 for two days. Patient is asymptomatic. Continue antibiotic regimen with levaquin, flagyl, and diflucan. (3) Hyperkalemia Current Visit: Yes Status: Resolved Resolved and has transitioned to hypokalemia, see plan below will continue to monitor (4) Hypokalemia Current Visit: Yes Status: Acute Postassium stable around 3.0-3.1 Continue monitoring (5) Generalized anxiety disorder Current Visit: No Status: Chronic Appreciate psych input Continue sertraline (6) Leukocytosis Current Visit: Yes Status: Resolved WBC normal at 9.4 for 2 days Qualifiers: Leukocytosis type: unspecified Qualified Code(s): D72.829 - Elevated white blood cell count, unspecified (7) DVT prophylaxis Current Visit: Yes Status: Acute Heparin subq Subjective Patient reports: no new complaints, feels better, tolerating liquids well, voiding w/o difficulty, flatus, bowel movement, blood in stool, afebrile Objective Vital Signs - Last 8 Hours Temp Pulse Resp BP Pulse Ox 02/04/17 04:27 99.1 F 81 16 150/90 94 Intake and Output 02/03/17 02/03/17 02/04/17 15:59 23:59 07:59 Intake Total 1442 / 1442 250 / 250 100 / 100 Output Total 700 / 700 200 / 200 Balance 742 / 742 250 / 250 -100 / -100 Intake: IV Fluids 1122 / 1122 250 / 250 100 / 100 KCl 20mEq IN D5%-0.45 450 / 450 NACL 20 meq In 1,000 ml @ 75 mls/hr IVC .[id number] [facility] Rx#:[id number] Diflucan 100 MG/50 ML 100 50 / 50 mg In 50 ml @ 50 mls/hr IVPB DAILY [facility] Rx#: [id number] Levaquin Premix 750mg/150 150 / 150 mL 750 mg In 150 ml @ 100 mls/hr IVPB Q24H [facility] Rx#:[id number] Flagyl Premix 500 MG/100 100 / 100 100 / 100 100 / 100 ML 500 mg In 100 ml @ 100 mls/hr IVPB Q8H [facility] Rx#: [id number] KCl 40 MEQ Xylocaine 2 ML 522 / 522 In Dextrose 5% 500 ML @ 130.5 mls/hr IVPB ONCE [facility] Rx#:[id number] Oral 320 / 320 0 / 0 0 / 0 Output: Urine 700 / 700 200 / 200 Other: Meal Lunch Percent of Meal Consumed 5% Stool Size Small Stool Consistency loose liquid Stool Color Brown Black # Voids 1 Weight 63.2 kg Blood Glucose* 86 - General physical appearance well developed, well nourished, no distress - Eyes PERRL, normal ocular movement, pale - ENT atraumatic, normocephalic - Neck Neck exam: trachea midline - Respiratory normal expansion, normal respiratory effort, clear to auscultation - Cardiovascular Cardiovascular exam: Present: RRR - Abdomen Abdomen: Present: bowel sounds present, soft, non tender - Incision Incision: Present: clean and dry - Musculoskeletal normal posture - Psychiatric speech is normal - Labs 02/03/17 03:51 02/03/17 03:51 - VTE Documentation of Mechanical Device: Intermittent pneumatic compression device Consult Discharge Plan - Plan Referrals: NONE,PCP [Primary Care Provider] -
[2017-02-04 06:49] LABS: Alanine Aminotransferase 15 Units/L (0-55); Albumin 2.3 g/dL (3.5-5.0); Albumin/Globulin Ratio 0.7 (1.1-2.2); Alkaline Phosphatase 49 Units/L (38-126); Aspartate Amino Transferase 25 Units/L (5-34); BUN/Creatinine Ratio 8 (6-26); Bilirubin,Total 1.1 mg/dL (0.2-1.2); Blood Urea Nitrogen 5 mg/dL (7-20); Calcium 8.3 mg/dL (8.6-10.8); Carbon Dioxide 24 mEq/L (19-29); Chloride 106 mEq/L (98-109); Globulin 3.2 g/dL (2.4-3.5); Glucose 71 mg/dL (70-99); Osmolality,Calculated 276 (280-300); Potassium 3.3 mEq/L (3.5-4.5); Sodium 135 mEq/L (136-145); Total Protein 5.5 g/dL (6.0-8.3); eGFR For African Americans > 60 (> 60); eGFR For Non-African Americans > 60 (> 60)
--- NOTE | 2017-02-04 07:38 | Discharge Summary ---
<DayannaAneudy - Last Filed: 02/04/17 07:58> Date of Encounter: 02/04/17 Time of Encounter: 06:30 - Discharge Diagnosis (1) Perforated ulcer of intestine Priority: Primary Status: Acute (2) Pneumonia Priority: Primary Status: Acute (3) Hyperkalemia Priority: Secondary Status: Resolved (4) Hypokalemia Priority: Secondary Status: Acute (5) Generalized anxiety disorder Priority: Secondary Status: Chronic (6) Leukocytosis Priority: Primary Status: Resolved Qualifiers: Leukocytosis type: unspecified Qualified Code(s): D72.829 - Elevated white blood cell count, unspecified (7) DVT prophylaxis Priority: Secondary Status: Acute - Discharge Medications Prescriptions: OxyCODONE/APAP 5/325 [Percocet 5/325 MG] 1 each PO Q6HR PRN #28 tablet PRN Reason: Pain levoFLOXacin [Levaquin] 750 mg PO DAILY #5 tablet Omeprazole [PriLOSEC] 40 mg PO DAILY #90 cap Home Medications: Omeprazole [PriLOSEC] 40 mg PO DAILY #90 cap 02/04/17 [Rx] OxyCODONE/APAP 5/325 [Percocet 5/325 MG] 1 each PO Q6HR PRN #28 tablet 02/04/17 [Rx] levoFLOXacin [Levaquin] 750 mg PO DAILY #5 tablet 02/04/17 [Rx] Allergies/Adverse Reactions: 3 Allergy/AdvReac Type Severity Reaction Status Date / Time Penicillins Allergy Hives Verified 08/19/16 17:00 General Surgery Exam Initial Vital Signs Temp Pulse Resp BP Pulse Ox 97.7 F 130 20 128/96 95 01/28/17 15:22 01/28/17 15:22 01/28/17 15:22 01/28/17 15:22 01/28/17 15:22 - General physical appearance well developed, well nourished, no distress - Eyes normal ocular movement - ENT atraumatic, normocephalic - Neck trachea midline - Respiratory normal expansion, normal respiratory effort, clear to auscultation - Cardiovascular Cardiovascular exam: Present: RRR - Abdomen Abdomen general surgery: Present: bowel sounds present, soft, non tender - Incision Incision: Present: clean and dry, intact - Musculoskeletal Present: normal posture - Psychiatric Psychiatric general surgery: Present: appropriate, speech is normal Date of admission: 01/28/17 18:11 Primary care physician: PCP NONE Consults: 01/29/17 09:16 Consult to [employer] [facility] [CONS] Routine Reason for SW Consult: evaluate emotional status 01/29/17 11:06 Consult to Psychiatry [CONS] Routine Consulting Provider: Carroll Bravo Reason for Consult: Hx Conversion disorder Lack of insight Tangentiality Time Notified: 10:40 Call Completed: Yes 01/31/17 12:36 Consult to Invasive Line Access Team [CONS] Routine Reason for Consult: poor access Line Type: EPIV Discharging clinician: Aneudy Alan Anticipated date of discharge: 02/04/17 - Patient Status Disposition: Home, Self-Care Condition: Good Functional capacity at discharge: independent ambulation Overall status at discharge: patient is progressing back to baseline - Discharge Instructions Follow Up With: Chadwick Quiñones MD [Partnered Physician] - 02/12/17 1:50 pm Additional Instructions: Follow up in 1 week w/ Dr. Quiñones (2 weeks post-op) - Diet and Activity Activity: resume usual activities as tolerated Diet: advance to your usual diet - Hospital Course Hospital course: Ms. Woods is a 46 year old female that presented to the [facility] ER with 3 days of severe abdominal pain on 01/28/17. CT abd/pelv at that time was consistent with perforated duodenal ulcer. The patient underwent pyloroplasty and omental patch by Dr. Quiñones the same day. The following day, she had clinically improved with much less pain. While waiting for return of bowel function, the patient's WBC count spiked from 9.6 to 23.0 despite being on metronidazole and ciprofloxacin since the surgery. CT abd/pelv showed possible pneumonia, and she was started on levaquin, which replaced the ciprofloxacin. She was also started on fluconazole for possible fungal source. Her lab values and clinical status have improved toward baseline since then and she has been tolerating full liquid then regular diet. Time spent discussing smoking cessation with patient: 3 to 10 minutes - Time Spent with Patient Total time spent providing and/or coordinating discharge services: Less than 30 minutes Labs on day of discharge: Labs from last 24 hours 02/04/17 02/04/17 05:20 05:20 WBC 9.4 RBC 3.64 L Hgb 6.8 L Hct 23.5 L MCV 64.6 L MCH 18.7 L MCHC 28.9 L RDW 18.9 H Plt Count 363 MPV 10.8 Sodium 135 L Potassium 3.3 L Chloride 106 Carbon Dioxide 24 BUN 5 L Creatinine 0.66 Est GFR ( Amer) > 60 Est GFR (Non-Af Amer) > 60 BUN/Creatinine Ratio 8 Glucose 71 Calculated Osmolality 276 L Calcium 8.3 L Total Bilirubin 1.1 AST 25 ALT 15 Alkaline Phosphatase 49 Serum Total Protein 5.5 L Albumin 2.3 L Globulin 3.2 Albumin/Globulin Ratio 0.7 L - Impressions ITS Impressions Chest X-Ray 01/31/17 08:35 IMPRESSION: 1. Findings suggesting mild fluid overload with small pleural effusions and possible interstitial edema. D/ / Dejan Norwood MD / Dejan Norwood MD Interpreting Provider: Dejan Norwood MD Abdomen/Pelvis CT 01/31/17 11:15 IMPRESSION: 1. No extravasation of oral contrast to indicate perforation in this patient with history of ulcer 2. Small amount of free fluid in the abdomen and pelvis. The presence of peritoneal enhancement could indicate peritonitis. Clinical correlation warranted. 3. Pneumoperitoneum greater than previous, not unexpected in the recent postoperative period. 4. Probable ileus 5. New bilateral pleural effusions with bibasilar atelectasis D/ / Jacob Bryson MD / Jacob Bryson MD Interpreting Provider: Jacob Bryson MD <IshmaelChadwick T - Last Filed: 02/04/17 09:40> Date of Encounter: 02/04/17 - Discharge Diagnosis (1) Perforated ulcer of intestine Status: Acute General Surgery Exam Initial Vital Signs Temp Pulse Resp BP Pulse Ox 97.7 F 130 20 128/96 95 01/28/17 15:22 01/28/17 15:22 01/28/17 15:22 01/28/17 15:22 01/28/17 15:22 Date of admission: 01/28/17 18:11 Primary care physician: PCP NONE Consults: 01/29/17 09:16 Consult to [employer] [facility] [CONS] Routine Reason for SW Consult: evaluate emotional status 01/29/17 11:06 Consult to Psychiatry [CONS] Routine Consulting Provider: Carroll Bravo Reason for Consult: Hx Conversion disorder Lack of insight Tangentiality Time Notified: 10:40 Call Completed: Yes 01/31/17 12:36 Consult to Invasive Line Access Team [CONS] Routine Reason for Consult: poor access Line Type: EPIV - Hospital Course Hospital course: Ms. Woods is a 46 year old female - Time Spent with Patient Total time spent providing and/or coordinating discharge services: Labs on day of discharge: Labs from last 24 hours 02/04/17 02/04/17 05:20 05:20 WBC 9.4 RBC 3.64 L Hgb 6.8 L Hct 23.5 L MCV 64.6 L MCH 18.7 L MCHC 28.9 L RDW 18.9 H Plt Count 363 MPV 10.8 Sodium 135 L Potassium 3.3 L Chloride 106 Carbon Dioxide 24 BUN 5 L Creatinine 0.66 Est GFR ( Amer) > 60 Est GFR (Non-Af Amer) > 60 BUN/Creatinine Ratio 8 Glucose 71 Calculated Osmolality 276 L Calcium 8.3 L Total Bilirubin 1.1 AST 25 ALT 15 Alkaline Phosphatase 49 Serum Total Protein 5.5 L Albumin 2.3 L Globulin 3.2 Albumin/Globulin Ratio 0.7 L - Impressions ITS Impressions Chest X-Ray 01/31/17 08:35 IMPRESSION: 1. Findings suggesting mild fluid overload with small pleural effusions and possible interstitial edema. D/ / Dejan Norwood MD / Dejan Norwood MD Interpreting Provider: Dejan Norwood MD Abdomen/Pelvis CT 01/31/17 11:15
[2017-02-04] MEDS: Sucralfate 1 GM TABLET PO SCH ×2 (10:00→11:56)
[2017-02-04] MEDS: Fluconazole 100 MG/50 ML 100 MG/50 ML BAG IVPB SCH (10:06)
[2017-02-04] MEDS: Pantoprazole 40 MG VIAL IVP SCH (10:06)
[2017-02-04] MEDS: D5% in 0.45% NACL w KCl 20 MEQ/1,000 ML MLS IVC SCH (10:25)
[2017-02-04 11:36] VITALS: BP 127/86
== END 2017-02-04 14:39 | disposition home or self-care (01) | DRG 222 ==
LOC: EMEROO 15:03 → 3ANU 18:11
PROVIDERS: ADMIT Surgery; ATTEND Surgery

== ENCOUNTER 2017-08-20 08:16 | Inpatient (IN) ==
[2017-08-20 08:54] LABS: Immature Granulocytes % 0.3 % (0-4); Red Cell Distribution Width 18.2 % (11.5-14.5)
[2017-08-20 08:55] LABS: Basophils % 0.3 %; Eosinophils # 0.2 K/mcL (0.0-0.6); Eosinophils % 3.8 %; Hematocrit 20.4 % (35.3-44.9); Lymphocytes # 1.2 K/mcL (0.6-4.6); Lymphocytes % 18.9 %; Mean Corpuscular HGB Conc 26.5 g/dL (31.6-35.5); Mean Corpuscular Hemoglobin 17.9 pg (28.0-33.3); Mean Corpuscular Volume 67.8 fL (83.0-100.0); Mean Platelet Volume 10.9 fL (9.4-12.4); Monocytes # 0.5 K/mcL (0.0-1.3); Monocytes % 7.9 %; Nucleated Red Blood Cells 0.3 /100 WBC (0); Platelet Count 251 K/mcL (140-400); Red Blood Count 3.01 M/mcL (3.82-4.97); Segmented Neutrophils % 68.8 %
[2017-08-20 09:11] LABS: Neutrophils # 4.3 K/mcL (1.6-8.9)
[2017-08-20 09:12] LABS: BUN/Creatinine Ratio 8 (6-26); Blood Urea Nitrogen 6 mg/dL (6-20); Calcium 8.5 mg/dL (8.6-10.3); Carbon Dioxide 23 mEq/L (23-29); Chloride 109 mEq/L (98-107); Glucose 83 mg/dL (70-105); Osmolality,Calculated 281 (280-300); Potassium 3.9 mEq/L (3.5-5.1); Sodium 137 mEq/L (136-145); eGFR For African Americans > 60 (> 60); eGFR For Non-African Americans > 60 (> 60)
--- NOTE | 2017-08-20 09:13 | Emergency Department Note ---
Disposition Clinical Impression: Vaginal bleeding Anemia Qualifiers: Anemia type: unspecified type Qualified Code(s): D64.9 - Anemia, unspecified Disposition: Admitted As Inpatient General Adult HPI - General Chief complaint: ED Vaginal Bleeding Stated complaint: Vaginal Bleed/clots Time Seen by Provider: 08/20/17 08:22 Source: patient Mode of arrival: ambulatory Limitations: no limitations Nursing Notes Reviewed: Yes Vital Signs Reviewed: Yes - History of Present Illness HPI Narrative: 46 year old female with history of chronic anemia presents with vaginal bleeding. Pt reported regular period history. She reported last period started on 08/04. It lasted for 2 weeks. She started vaginal bleeding again two days later. Pt visited here on 08/07. She had negative hcg and hemoglobin 6.4. Pt was discharged home without blood transfusion. Pt scheduled appointment with [facility] ASSOCIATE on 08/25. Pt came to ER today due to increasing bleeding since yesterday. She reported big blood clots came out. associate with mild pelvic cramping pain. Pt is sexual active with her only. No concerning of STD. pt is not on control. History of stomach ulcer. Had surgery on 12/2016. No report of bloody or black stool since then. pt reported sex intercourse ( vaginal and rectal) with her daily. Pt stated the vaginal bleeding started 1 day after a rectal sex. Onset (ago): week(s) (1) Location: pelvis Radiation: non-radiation Pain Scale: 0 - Related Data Home Medications Medication Instructions Recorded Confirmed Ferrous Sulfate [Iron] 325 mg PO DAILY 08/20/17 08/20/17 Previous Rx's Medication Instructions Recorded Omeprazole [PriLOSEC] 40 mg PO DAILY #90 cap 02/04/17 Allergies Allergy/AdvReac Type Severity Reaction Status Date / Time Penicillins Allergy Hives Verified 08/19/16 17:00 Constitutional: Denies: fever, chills, weakness Eyes: Denies: eye pain, eye discharge ENT ED: Denies: ear pain, throat pain, dental pain Cardiovascular: Denies: chest pain, palpitations Respiratory: Denies: cough, dyspnea, wheezes Gastrointestinal: Denies: abdominal pain, nausea, vomiting Genitourinary: Reports: other (vaginal bleeding). Denies: urgency, dysuria, frequency Musculoskeletal: Denies: back pain, neck pain Integumentary: Denies: rash, abrasion Neurological: Denies: headache, weakness Psychiatric: Denies: anxiety, depression Endocrine: Denies: fatigue, heat or cold intolerance Hematological/Lymphatic: Denies: easy bleeding, easy bruising Allergic/Immunologic: Denies: facial swelling, urticaria Past Medical History - Past Medical History Medical history: Reports: arthritis, GERD, other Surgical history: Reports: , other Psychiatric history: Reports: depression, previous psychiatric hospitalization RAW SAMPLER history: Reports: no RAW SAMPLER history - Social History Smoking Status: Light tobacco smoker Smokeless Tobacco Status: No Alcohol use: Reports: none Drug use: Reports: none Physical Exam - General General appearance: alert, in no apparent distress - Head Head exam: atraumatic, normal inspection - Eye Eye exam: Present: normal appearance, other (conjunctival pale). Absent: scleral icterus, conjunctival injection - ENT ENT exam: normal exam - Neck Neck exam: Present: normal inspection, full ROM, trachea midline. Absent: tenderness - Chest Chest inspection: Present: normal inspection, symmetric chest wall rise. Absent : tenderness - Respiratory Respiratory exam: Present: normal lung sounds bilaterally. Absent: respiratory distress, wheezes - Cardiovascular Cardiovascular exam: Present: regular rate, normal rhythm - Abdominal Exam Abdominal exam: Present: soft, Non-Tender - Extremities Exam Extremities exam: Present: normal inspection, full ROM. Absent: tenderness - Back Exam Back exam: Present: normal inspection, full ROM. Absent: tenderness - Neurological Exam Neurological exam: Present: alert, oriented X3 - Psychiatric Psychiatric exam: Present: normal affect, normal mood - Skin Skin exam: Present: warm, intact Course Vital Signs Temperature 98.6 F 08/20/17 08:18 Pulse Rate 89 08/20/17 08:18 Respiratory Rate 18 08/20/17 08:18 Blood Pressure 147/88 08/20/17 08:18 O2 Sat by Pulse Oximetry 100 08/20/17 08:18 Temperature 97.9 F 08/20/17 14:06 Pulse Rate 79 08/20/17 14:06 Respiratory Rate 16 08/20/17 14:06 Blood Pressure 134/81 08/20/17 14:06 O2 Sat by Pulse Oximetry 99 08/20/17 14:06 Oxygen Delivery Oxygen Delivery Room Air Medical Decision Making - MDM Narrative Medical decision making narrative: 46 year old female with history of stomach ulcer and chronic anemia presents large amount of vaginal bleeding for 2 days. Pt stated her last period was 3 weeks ago. It lasted 2 weeks and started vaginal bleeding again one week ago. it was not severe at that time. In the past two days, she passed a lot of blood clots. Pt denied weakness or dizziness. No palpitation or sweating. Physical exam: no abdomen tender. Pelvic exam: large amount of blood with blood clot in vaginal, with active bleeding. Rectal exam: no laceration noted, mild pink stool noted, glove is also contaminated by vaginal blood, guiac test positive. Labs: hemoglobin 5.4 (6.5 last week). Dr. Delacruz spoke with [facility], will admit pt to medical floor with [facility]ATION ASSOCIATE consult, 2 units red cell ordered in ER. Pelvic ultrasound: 1. The uterus demonstrates anterior low uterine segment section scarring. Uterine leiomyomas identified on the prior CT exam are not appreciated on today's ultrasound. 2. Endometrial stripe measures 2.1 cm in thickness. 3. 1.4 cm probable hemorrhagic right ovarian cyst. No follow-up imaging is recommended. 4. 3.9 cm but probably benign left ovarian cyst. A follow-up pelvic ultrasound in 6-12 weeks can be obtained. - Lab Data Lab results reviewed: Yes I reviewed the patient's lab results. Result diagrams: 08/20/17 08:43 08/20/17 08:43 Lab Results 08/20/17 08/20/17 08/20/17 Range/Units 08:43 08:43 08:43 WBC 6.3 (4.3-11.1) K/mcL RBC 3.01 L (3.82-4.97) M/mcL Hgb 5.4 L* (11.5-15.4) g/dL Hct 20.4 L (35.3-44.9) % MCV 67.8 L (83.0-100.0) fL MCH 17.9 L (28.0-33.3) pg MCHC 26.5 L (31.6-35.5) g/dL RDW 18.2 H (11.5-14.5) % Plt Count 251 (140-400) K/mcL MPV 10.9 (9.4-12.4) fL Immature Gran % 0.3 (0-4) % Seg Neutrophils % 68.8 % Lymphocytes % 18.9 % Monocytes % 7.9 % Eosinophils % 3.8 % Basophils % 0.3 % Neutrophils # 4.3 (1.6-8.9) K/mcL Lymphocytes # 1.2 (0.6-4.6) K/mcL Monocytes # 0.5 (0.0-1.3) K/mcL Eosinophils # 0.2 (0.0-0.6) K/mcL Basophils # 0.0 (0.0-0.2) K/mcL Nucleated RBCs/100 WBC 0.3 H (0) /100 WBC Platelet Estimate Normal (Normal) Hypochromasia Present A (Not Present) Poikilocytosis 1+ A (Not Present) Anisocytosis 2+ A (Not Present) Microcytosis Present A (Not Present) Macrocytosis Present A (Not Present) Ovalocytes 1+ A (Not Present) Sodium 137 (136-145) mEq/L Potassium 3.9 (3.5-5.1) mEq/L Chloride 109 H (98-107) mEq/L Carbon Dioxide 23 (23-29) mEq/L BUN 6 (6-20) mg/dL Creatinine 0.78 (0.60-1.20) mg/dL Est GFR ( Amer) > 60 (> 60) Est GFR (Non-Af Amer) > 60 (> 60) BUN/Creatinine Ratio 8 (6-26) Glucose 83 (70-105) mg/dL Calculated Osmolality 281 (280-300) Calcium 8.5 L (8.6-10.3) mg/dL Iron < 10 L (50-170) mcg/dL % Saturation TNP Transferrin 345 (203-362) mg/dL Serum , Qual (Negative) Blood Type A POSITIVE Antibody Screen NEGATIVE Crossmatch See Detail 08/20/17 Range/Units 10:05 WBC (4.3-11.1) K/mcL RBC (3.82-4.97) M/mcL Hgb (11.5-15.4) g/dL Hct (35.3-44.9) % MCV (83.0-100.0) fL MCH (28.0-33.3) pg MCHC (31.6-35.5) g/dL RDW (11.5-14.5) % Plt Count (140-400) K/mcL MPV (9.4-12.4) fL Immature Gran % (0-4) % Seg Neutrophils % % Lymphocytes % % Monocytes % % Eosinophils % % Basophils % % Neutrophils # (1.6-8.9) K/mcL Lymphocytes # (0.6-4.6) K/mcL Monocytes # (0.0-1.3) K/mcL Eosinophils # (0.0-0.6) K/mcL Basophils # (0.0-0.2) K/mcL Nucleated RBCs/100 WBC (0) /100 WBC Platelet Estimate (Normal) Hypochromasia (Not Present) Poikilocytosis (Not Present) Anisocytosis (Not Present) Microcytosis (Not Present) Macrocytosis (Not Present) Ovalocytes (Not Present) Sodium (136-145) mEq/L Potassium (3.5-5.1) mEq/L Chloride (98-107) mEq/L Carbon Dioxide (23-29) mEq/L BUN (6-20) mg/dL Creatinine (0.60-1.20) mg/dL Est GFR ( Amer) (> 60) Est GFR (Non-Af Amer) (> 60) BUN/Creatinine Ratio (6-26) Glucose (70-105) mg/dL Calculated Osmolality (280-300) Calcium (8.6-10.3) mg/dL Iron (50-170) mcg/dL % Saturation Transferrin (203-362) mg/dL Serum , Qual Negative (Negative) Blood Type Antibody Screen Crossmatch - Radiology Data Radiology results reviewed: Yes I reviewed the patient's radiology results. Attestation Statement - Attestation Attestation: I have personally performed a face to face evaluation on this patient. I have reviewed and agree with the care plan. History and Exam by me shows: Pale conjunciva. Non-toxic appearing pt. Denies any sx of anemia. R/B of transfusion discussed in detail by me, pt understands and agrees to transfusion.
[2017-08-20 09:17] LABS: Hemoglobin 5.4 g/dL (11.5-15.4)
[2017-08-20] MEDS ORDERED: 0.9 % Sodium Chloride 250 ML ONE ×3 (09:41→17:30)
[2017-08-20 09:53] LABS: Hypochromasia Present (Not Present); Macrocytosis Present (Not Present); Microcytosis Present (Not Present)
[2017-08-20 09:54] LABS: Anisocytosis 2+ (Not Present); Ovalocytes 1+ (Not Present); Platelet Estimate Normal (Normal); Poikilocytosis 1+ (Not Present)
[2017-08-20] MEDS ORDERED: Naloxone 0.4 MG/ML INJ IVP PRN (11:12)
[2017-08-20] MEDS ORDERED: *HR* HYDROcodone/Acet 5/325 mg TABLET PO PRN (11:12)
[2017-08-20] MEDS ORDERED: *HR* Promethazine 25 MG/ML VIAL IVP PRN (11:12)
[2017-08-20] MEDS ORDERED: Ondansetron 4 MG/2 ML VIAL IVP PRN (11:12)
[2017-08-20] MEDS ORDERED: Acetaminophen 325 MG TABLET PO PRN (11:12)
[2017-08-20 11:55] LABS: Iron < 10 mcg/dL (50-170); Transferrin 345 mg/dL (203-362)
--- NOTE | 2017-08-20 14:35 | Internal Med History&Physical ---
Date of Encounter: 08/20/17 Time of Encounter: 11:45 Assessment and Plan (1) Acute blood loss anemia Current visit: Yes Status: Acute Admit the pt into Tele Her Hb is 5.4 today, baseline runs around 7-8 Her anemia mostly due vaginal bleeding transfuse 2 U PRBC Checked Iron studies.. showed severe Iron def with levels < 10 Started on IV Venofer too (2) Vaginal bleeding Current visit: Yes Status: Acute Reviewed pelvic ultra sound thickened endometrium noticed. Gynecology consulted continue symptomatic and supportive care (3) Iron deficiency Current visit: No Status: Acute Severe iron deficiency noticed mostly due to vaginal bleeding stool hemoccult came back is negative started on IV Venofer x 3 doses increased ferrous sulfate to twice a day (4) Microcytic hypochromic anemia Current visit: No Status: Acute (5) H/O gastroesophageal reflux (GERD) Current visit: No Status: Chronic On PPI Internal Medicine - H&P: HPI Chief complaint: Vaginal bleeding Admitted From: Emergency Dept Plans for Post Hospital Care: Home History of present illness: Ms. Thang Woods is a 46 year old female with known PMH of GERD, Arthritis, Severe Iron def anemia and chronic vaginal bleeding pt presented to ER c/o worsening vaginal bleeding. She did mention that she has been having severe menorrhagia from last few months, bleeding at least 2-3 weeks every month, however this times it seems to be worsening and also has SOB and SMALL. Denied any CP. Denied any hematemesis and melena. Past Med Surg Social Fam HX - Past Medical History Medical history: GERD, other Psychiatric history: depression, previous psychiatric hospitalization - Past Surgical History Surgical History: , other - Social History Smoking Status: Light tobacco smoker Smokeless Tobacco Status: No Alcohol use: none Drug use: none - Additional Family History Additional family history: Family hsitory reviewed and non contribuitory to current problem. Internal Medicine - H&P: Meds Omeprazole [PriLOSEC] 40 mg PO DAILY #90 cap 02/04/17 [Rx] Ferrous Sulfate [Iron] 325 mg PO DAILY 08/20/17 [History] 3 Allergy/AdvReac Type Severity Reaction Status Date / Time Penicillins Allergy Hives Verified 08/19/16 17:00 All Systems PM: A 10-system review of systems was performed and is negative for pertinent findings except as documented above in the HPI. Review of systems: All the systems are reviewed everything is benign except the systems and symptoms I mentioned in the history of present illness - Constitutional Vitals: Temp Pulse Resp BP Pulse Ox 97.9 F 79 16 134/81 99 08/20/17 14:06 08/20/17 14:06 08/20/17 14:06 08/20/17 14:06 08/20/17 14:06 General appearance: Present: cooperative, A&O X 3, answers questions appropriately Exam: Looks very pale - Head Head exam: Present: atraumatic, normal inspection - Eye Additional comments: Severely pale conjunctiva - Neck Neck exam general surgery: Present: supple - Respiratory Respiratory exam: Present: decreased breath sounds. Absent: rales, respiratory distress, rhonchi, wheezes - Cardiovascular Cardiovascular exam: Present: RRR, +S1, +S2. Absent: tachycardia - GI/Abdominal GI/Abdominal exam: Present: normal bowel sounds, soft. Absent: rebound, rigid, tenderness - Extremities Exam Extremities exam: Absent: calf tenderness, pedal edema, tenderness - Back Exam Back exam: Absent: CVA tenderness (L), CVA tenderness (R) - Neurological Exam Neurological exam: Present: alert, oriented X3 - Psychiatric Psychiatric exam: Present: normal affect, normal mood - Skin Skin exam: Present: pallor. Absent: rash Internal Med - H&P Results - Labs CBC & Chem 7: 08/20/17 08:43 08/20/17 08:43
--- NOTE | 2017-08-20 19:10 | OB/GYN Consult Note ---
Date of Encounter: 08/20/17 Time of Encounter: 19:08 Assessment and Plan (1) Abnormal uterine bleeding (AUB) Current Visit: Yes Status: Acute Hemoglobin of 5.4 patient currently receiving iron and blood transfusions. We will start on Megace for progesterone treatment to help with bleeding. Discussed exam findings and plan of care with primary care team. (2) Uterine tenderness Current Visit: Yes Status: Acute Patient may have an endometritis which may be factoring into the amount of bleeding that she is doing. Recommend treating with antibiotics (3) Bulky or enlarged uterus Current Visit: Yes Status: Acute The uterus has mild diffuse enlargement without evidence of discrete lesions/ fibroids. Images reviewed on PACS (4) Abnormal ultrasound of endometrium Current Visit: Yes Status: Acute 21 mm on ultrasound with active bleeding seen on Doppler. Recommend endometrial biopsy for tissue sampling (5) Left ovarian cyst Current Visit: Yes Status: Acute Simple and benign appearing measuring 3.9 cm in largest diameter. Recommend clinical correlation and surveillance History of Present Illness Consult date: 08/20/17 Requesting physician: Gaurav Wiggins Reason for consult: menorrhagia, other (anemia) Chief complaint: Vaginal bleeding for 3 weeks History of present illness: The patient is a 46-year-old black female who presents to emergency room with three-week history of abnormal vaginal bleeding. She reports that it started after her normal menstrual cycle which have been regular every month, immediately following intercourse. She states that the bleeding waxes and wanes from heavy with small clots to minimal bleeding. She reports deep pain with intercourse, both vaginal and rectal. She has been with the same partner for 7 years. She reports no Pap smear or regular gynecologic care for over 14 years. She states she has been trying to conceive for the past 7 years. She has not been on any control. She reports a chronic history of anemia starting when she was a child. She denies any history of sickle cell. Since her GI surgery this past summer she reports an 80 pound weight loss. She reports no history of abnormal Pap smears. She denies any other history of gynecologic issues. She does report to had 3 sets of twins and one tran, all by . She also reports one spontaneous miscarriage which did not require a D&C. She reports not having been on control pills or hormonal treatments for years. She was afraid she might have had a miscarriage but she has had negative test. She was seen recently in the ED with a hemoglobin of 6.4 and was discharged but reports not seeking any follow-up or treatment since then. Past Med Surg Social Fam HX - Past Medical History Attestation: Yes The following information was validated with the patient. Source: patient Medical history: arthritis, GERD, other Psychiatric history: depression, previous psychiatric hospitalization - Past Surgical History Surgical History: , other - Social History Smoking Status: Light tobacco smoker Smokeless Tobacco Status: No Alcohol use: none Drug use: none Medications and Allergies Omeprazole [PriLOSEC] 40 mg PO DAILY #90 cap 02/04/17 [Rx] Ferrous Sulfate [Iron] 325 mg PO DAILY 08/20/17 [History] 3 Allergy/AdvReac Type Severity Reaction Status Date / Time Penicillins Allergy Hives Verified 08/19/16 17:00 Review of Systems All Systems: reviewed and no additional remarkable complaints except as stated Constitutional: as per HPI, fatigue, malaise, weight loss, no excessive sweating , no weight gain Eyes: bilateral: blurred vision (patient denies), diplopia (patient denies) Nose, mouth and throat: no dizziness, no headache(s) Cardiovascular: no chest pain, no edema, no palpitations Respiratory: cough, no dyspnea Gastrointestinal: abdominal pain, nausea, vomiting, no change in bowel habits, no heartburn, no melena Genitourinary Female: abnormal vaginal bleeding, difficulty conceiving, dyspareunia, menorrhagia, metrorrhagia, pelvic pain Menstruation: as per HPI, menses 1-7 days, period normal Musculoskeletal: no muscle weakness, no numbness Integumentary: no hirsutism, no striae Neurological: no abnormal gait, no abnormal hearing, no abnormal movements, no abnormal speech, no frequent falls Psychiatric: no depression, no difficulty concentrating Endocrine: as per HPI Hematologic/Lymphatic: no easy bruising, no lymphadenopathy Exam - Vital Signs Vital signs: Initial Vital Signs Temp Pulse Resp BP Pulse Ox 98.6 F 89 18 147/88 100 08/20/17 08:18 08/20/17 08:18 08/20/17 08:18 08/20/17 08:18 08/20/17 08:18 - Constitutional Constitutional: well developed, well nourished, no acute distress, average body habitus - HEENT HEENT: Normocephaly, Mucus Membranes Moist - Neck Neck exam: normal inspection, supple - Lungs Respiratory exam: CTAB - Cardiovascular Cardiovascular exam: RRR - Abdomen Abdomen: Present: bowel sounds normal. Absent: non tender, guarding noted Abdomen detail: right lower quadrant: tenderness (suprapubic), left lower quadrant: tenderness - Extremities Extremities exam: normal inspection, warm - Vulva Vulva: bilateral: normal (() - Vagina Vagina: Absent: normal moisture - Cervix Cervix: Absent: lesion, ulceration, friable - Uterus Uterus exam: Present: enlarged, tender - Adnexa Adnexa: left: mass, right: normal - Anus/Rectum Anus/Rectum: Present: normal perianal skin - Comments Comments: Uterus is enlarged, midline, tender and fixed. Adnexa are nontender bilaterally with fullness appreciated on the left. Speculum exam reveals a nulliparous appearing cervix which is smooth and without lesions. There is no active bleeding coming through the cervical os on inspection. Results Result Diagrams: 08/20/17 08:43 08/20/17 08:43 Abnormal lab results RBC 3.01 M/mcL (3.82-4.97) L 08/20/17 08:43 Hgb 5.4 g/dL (11.5-15.4) L* 08/20/17 08:43 Hct 20.4 % (35.3-44.9) L 08/20/17 08:43 MCV 67.8 fL (83.0-100.0) L 08/20/17 08:43 MCH 17.9 pg (28.0-33.3) L 08/20/17 08:43 MCHC 26.5 g/dL (31.6-35.5) L 08/20/17 08:43 RDW 18.2 % (11.5-14.5) H 08/20/17 08:43 Nucleated RBCs/100 WBC 0.3 /100 WBC (0) H 08/20/17 08:43 Hypochromasia Present (Not Present) A 08/20/17 08:43 Poikilocytosis 1+ (Not Present) A 08/20/17 08:43 Anisocytosis 2+ (Not Present) A 08/20/17 08:43 Microcytosis Present (Not Present) A 08/20/17 08:43 Macrocytosis Present (Not Present) A 08/20/17 08:43 Ovalocytes 1+ (Not Present) A 08/20/17 08:43 Chloride 109 mEq/L (98-107) H 08/20/17 08:43 Calcium 8.5 mg/dL (8.6-10.3) L 08/20/17 08:43 Iron < 10 mcg/dL (50-170) L 08/20/17 08:43 All other labs normal. Consult Discharge Plan - Plan Referrals: NONE,PCP [Primary Care Provider] -
--- NOTE | 2017-08-20 19:20 | Event Note ---
Date of Encounter: 08/20/17 Time of Encounter: 19:17 Endometrial biopsy completed per STAMP PAD MAKER; pathology lab should start to process tomorrow STAMP PAD MAKER concern for malignancy; notes 2cm thick endometrium Here for abnormal vaginal bleeding and anemia STAMP PAD MAKER reports that she does not have an outpatient appointment as was mentioned in prior notes She will need a f/u scheduled with STAMP PAD MAKER upon discharge She also mentions rectal to vaginal intercourse and there is also concern for infection -start megace to help decrease bleeding while PRBC's are infusing -start IV ATB levaquin and flagyl -Q6 H&H
--- NOTE | 2017-08-20 19:45 | Event Note ---
Date of Encounter: 08/20/17 Time of Encounter: 19:43 Risks, benefits, alternatives of endometrial biopsy discussed with patient. She voiced understanding, signed the consent form and agreed to proceed with the biopsy. A timeout for patient identification and safety was performed, She was placed in a dorsal lithotomy position using an upside down bedpan, and a speculum was placed in the vagina. The cervix was cleansed with Betadine (after confirming allergy profile), A uterine sound was inserted through the cervical os, and uterus sounded to a depth of 10 cm. The pipelle was extended through the os to the fundus, and the suction was applied. Blood and tissue were extracted, and the contents were placed in a pathology biopsy jar with formalin. An additional pass was made with the pipelle. The speculum was then removed, and the bedpan was removed. The patient tolerated the procedure well. EBL 3 mL, complications none
[2017-08-20] MEDS: levoFLOXacin 500 MG TABLET PO SCH (20:30)
[2017-08-20] MEDS: metroNIDAZOLE 500 MG TABLET PO SCH (20:46)
[2017-08-20 23:05] LABS: Hematocrit 26.4 % (35.3-44.9); Hemoglobin 7.4 g/dL (11.5-15.4)
[2017-08-21 05:49] LABS: BUN/Creatinine Ratio 9 (6-26); Basophils # 0.1 K/mcL (0.0-0.2); Basophils % 0.7 %; Blood Urea Nitrogen 7 mg/dL (6-20); Calcium 8.5 mg/dL (8.6-10.3); Carbon Dioxide 23 mEq/L (23-29); Chloride 111 mEq/L (98-107); Cholesterol 136 mg/dL (< 200); Eosinophils # 0.2 K/mcL (0.0-0.6); Eosinophils % 3.2 %; Glucose 102 mg/dL (70-105); HDL Cholesterol 46 mg/dL (40-59); Hemoglobin 7.3 g/dL (11.5-15.4); Immature Granulocytes % 0.4 % (0-4); LDL Cholesterol,Calculated 77 mg/dL (0-99); Lymphocytes # 1.5 K/mcL (0.6-4.6); Lymphocytes % 20.2 %; Magnesium 2.1 mg/dL (1.6-2.6); Mean Corpuscular HGB Conc 28.1 g/dL (31.6-35.5); Mean Corpuscular Hemoglobin 19.6 pg (28.0-33.3); Mean Corpuscular Volume 69.9 fL (83.0-100.0); Mean Platelet Volume 10.7 fL (9.4-12.4); Monocytes # 0.7 K/mcL (0.0-1.3); Monocytes % 9.1 %; Neutrophils # 4.8 K/mcL (1.6-8.9); Nucleated Red Blood Cells 0.4 /100 WBC (0); Osmolality,Calculated 280 (280-300); Platelet Count 231 K/mcL (140-400); Potassium 3.6 mEq/L (3.5-5.1); Red Blood Count 3.72 M/mcL (3.82-4.97); Red Cell Distribution Width 18.9 % (11.5-14.5); Segmented Neutrophils % 66.4 %; Sodium 136 mEq/L (136-145); Triglycerides 63 mg/dL (< 150); eGFR For African Americans > 60 (> 60); eGFR For Non-African Americans > 60 (> 60)
[2017-08-21 06:15] LABS: Anisocytosis 2+ (Not Present); Hypochromasia Present (Not Present); Microcytosis Present (Not Present); Platelet Estimate Normal (Normal); Poikilocytosis 1+ (Not Present); Polychromasia 1+ (Not Present)
[2017-08-21 06:16] LABS: Ovalocytes 1+ (Not Present)
[2017-08-21] MEDS: levoFLOXacin 500 MG TABLET PO SCH (07:54)
[2017-08-21] MEDS: metroNIDAZOLE 500 MG TABLET PO SCH ×3 (07:54→21:39)
[2017-08-21 11:20] LABS: Hematocrit 29.9 % (35.3-44.9); Hemoglobin 8.2 g/dL (11.5-15.4)
--- NOTE | 2017-08-21 12:13 | Internal Med Progress Note ---
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, s/p biopsy, has appt on Friday, continue to monitor (2) Acute blood loss anemia Current Visit: Yes Status: Acute Assessment and plan: due to DUB Continue to monitor Hemodynamically stable HB improved with RBCs (3) H/O gastroesophageal reflux (GERD) Current Visit: No Status: Chronic Assessment and plan: continue home pPI (4) Iron deficiency Current Visit: Yes Status: Chronic Assessment and plan: chronic, since childhood, continue iron - Subjective Interval history: Seen and evaluated at bedside No new complains She states her vaginal bleeding has resolved remarkably She is s/p RBCs and venofer, Hb stable at 8.6 s/p endometrial biopsy has [facility] appt for Friday 08/25 She is medically stable but wants to stay one more night - Constitutional Vitals: Temp Pulse Resp BP Pulse Ox 97.9 F 75 15 149/92 98 08/21/17 10:06 08/21/17 10:06 08/21/17 10:06 08/21/17 10:06 08/21/17 10:06 General appearance: Present: cooperative, A&O X 3, pleasant, answers questions appropriately - Head Head exam: Present: atraumatic, normocephalic - Eye Eye exam: Present: PERRL, conjuntiva pink, sclera anicteric Pupils: Present: PERRL - Neck Neck exam general surgery: Present: supple, trachea midline. Absent: lymphadenopathy - Respiratory Respiratory exam: Present: CTAB. Absent: accessory muscle use, rales, rhonchi, wheezes - Cardiovascular Cardiovascular exam: Present: RRR, +S1, +S2. Absent: diastolic murmur, gallop, rubs, systolic murmur - GI/Abdominal GI/Abdominal exam: Present: normal bowel sounds, soft, no peritoneal signs. Absent: distended, tenderness - Extremities Exam Extremities exam: Present: warm, radial pulses palpable and symmetrical. Absent : calf tenderness, cyanotic, pedal edema - Neurological Exam Neurological exam: Present: alert, CN II-XII intact, oriented X3, no focal deficits. Absent: pronater drift, facial droop, speech deficit - Skin Skin exam: Present: dry, intact Internal Medicine: Result - Labs CBC & Chem 7: 08/21/17 15:55 08/21/17 04:50 Labs: Short CBC 08/20/17 08/21/17 08/21/17 Range/Units 22:26 04:50 09:51 WBC 7.2 (4.3-11.1) K/mcL Hgb 7.4 L D 7.3 L 8.2 L (11.5-15.4) g/dL Hct 26.4 L 26.0 L 29.9 L (35.3-44.9) % Plt Count 231 (140-400) K/mcL Neutrophils # 4.8 (1.6-8.9) K/mcL BMP 08/21/17 04:50 Sodium 136 Potassium 3.6 Chloride 111 H Carbon Dioxide 23 BUN 7 Creatinine 0.78 Glucose 102 Calcium 8.5 L - VTE Documentation of Mechanical Device: Intermittent pneumatic compression device Consult Discharge Plan - Plan Referrals: NONE,PCP [Primary Care Provider] -
[2017-08-21 16:53] LABS: Hematocrit 27.6 % (35.3-44.9); Hemoglobin 7.9 g/dL (11.5-15.4)
--- NOTE | 2017-08-21 22:45 | OB/GYN Consult Note ---
Date of Encounter: 08/21/17 Time of Encounter: 18:30 History of Present Illness Consult date: 08/21/17 Reason for consult: other (uterine bleeding) Past Med Surg Social Fam HX - Past Medical History Medical history: arthritis, GERD, other Psychiatric history: depression, previous psychiatric hospitalization - Past Surgical History Surgical History: , other - Social History Smoking Status: Light tobacco smoker Smokeless Tobacco Status: No Alcohol use: none Drug use: none Medications and Allergies Omeprazole [PriLOSEC] 40 mg PO DAILY #90 cap 02/04/17 [Rx] Ferrous Sulfate [Iron] 325 mg PO DAILY 08/20/17 [History] 3 Allergy/AdvReac Type Severity Reaction Status Date / Time Penicillins Allergy Hives Verified 08/19/16 17:00 Exam - Vital Signs Vital signs: Initial Vital Signs Temp Pulse Resp BP Pulse Ox 98.6 F 89 18 147/88 100 08/20/17 08:18 08/20/17 08:18 08/20/17 08:18 08/20/17 08:18 08/20/17 08:18 Results Result Diagrams: 08/21/17 15:55 08/21/17 04:50 Abnormal lab results RBC 3.72 M/mcL (3.82-4.97) L 08/21/17 04:50 Hgb 7.9 g/dL (11.5-15.4) L 08/21/17 15:55 Hct 27.6 % (35.3-44.9) L 08/21/17 15:55 MCV 69.9 fL (83.0-100.0) L 08/21/17 04:50 MCH 19.6 pg (28.0-33.3) L 08/21/17 04:50 MCHC 28.1 g/dL (31.6-35.5) L 08/21/17 04:50 RDW 18.9 % (11.5-14.5) H 08/21/17 04:50 Nucleated RBCs/100 WBC 0.4 /100 WBC (0) H 08/21/17 04:50 Polychromasia 1+ (Not Present) A 08/21/17 04:50 Hypochromasia Present (Not Present) A 08/21/17 04:50 Poikilocytosis 1+ (Not Present) A 08/21/17 04:50 Anisocytosis 2+ (Not Present) A 08/21/17 04:50 Microcytosis Present (Not Present) A 08/21/17 04:50 Macrocytosis Present (Not Present) A 08/20/17 08:43 Ovalocytes 1+ (Not Present) A 08/21/17 04:50 Chloride 111 mEq/L (98-107) H 08/21/17 04:50 Calcium 8.5 mg/dL (8.6-10.3) L 08/21/17 04:50 Iron < 10 mcg/dL (50-170) L 08/20/17 08:43 All other labs normal. Consult Discharge Plan - Plan Referrals: NONE,PCP [Primary Care Provider] -
--- NOTE | 2017-08-21 22:55 | Event Note ---
Date of Encounter: 08/21/17 Time of Encounter: 18:30 S: Pt reports she is feeling better and bleeding has slowed. Denies dizziness, CP, SOB. O: Generally well-appearing and pleasant Breath sounds clear and equal bilaterally Heart tones S1,S2 No pedal edema A: s/p EMB - results pending P: Pt informed of pending biopsy results and instructed to follow up with Dr. Villalta as scheduled. OK to discharge from OB
[2017-08-22 05:53] LABS: Red Cell Distribution Width 19.9 % (11.5-14.5)
[2017-08-22 05:55] LABS: Basophils # 0.1 K/mcL (0.0-0.2); Hematocrit 27.4 % (35.3-44.9); Hemoglobin 7.8 g/dL (11.5-15.4); Mean Corpuscular HGB Conc 28.5 g/dL (31.6-35.5); Mean Corpuscular Hemoglobin 19.9 pg (28.0-33.3); Mean Corpuscular Volume 69.9 fL (83.0-100.0); Mean Platelet Volume 9.9 fL (9.4-12.4); Nucleated Red Blood Cells 0.4 /100 WBC (0); Platelet Count 227 K/mcL (140-400); Red Blood Count 3.92 M/mcL (3.82-4.97)
[2017-08-22 06:07] LABS: BUN/Creatinine Ratio 12 (6-26); Blood Urea Nitrogen 9 mg/dL (6-20); Calcium 8.5 mg/dL (8.6-10.3); Carbon Dioxide 21 mEq/L (23-29); Chloride 113 mEq/L (98-107); Glucose 91 mg/dL (70-105); Osmolality,Calculated 284 (280-300); Potassium 3.9 mEq/L (3.5-5.1); Sodium 138 mEq/L (136-145); eGFR For African Americans > 60 (> 60); eGFR For Non-African Americans > 60 (> 60)
[2017-08-22] MEDS: metroNIDAZOLE 500 MG TABLET PO SCH (07:53)
[2017-08-22] MEDS: levoFLOXacin 500 MG TABLET PO SCH (07:54)
[2017-08-22 11:19] VITALS: BP 137/84
[2017-08-22 11:53] LABS: Eosinophils # 0.1 K/mcL (0.0-0.6); Lymphocytes # 1.5 K/mcL (0.6-4.6); Monocytes # 0.4 K/mcL (0.0-1.3); Neutrophils # 4.8 K/mcL (1.6-8.9)
[2017-08-22 11:58] LABS: Anisocytosis 1+ (Not Present); Hypochromasia Present (Not Present); Microcytosis Present (Not Present); Platelet Estimate Normal (Normal); Polychromasia 1+ (Not Present)
--- NOTE | 2017-08-22 13:31 | Discharge Summary ---
- NOTES TO OUTPATIENT PROVIDER Notes to Outpatient Provider: Patient needs a close follow-up with obstetrics and gynecology for follow-up on endometrial biopsy and dysfunctional uterine bleeding Date of Encounter: 08/22/17 Time of Encounter: 13:28 - Discharge Diagnosis (1) Abnormal uterine bleeding (AUB) Priority: Primary Status: Acute (2) Anemia Priority: Secondary Status: Acute Qualifiers: Anemia type: unspecified type Qualified Code(s): D64.9 - Anemia, unspecified (3) Uterine tenderness Priority: Secondary Status: Acute Hospital course: Ms. Thang Woods is a 46 year old female admitted to [facility] for acute on chronic iron deficiency anemia. Patient received multiple rounds of PRBCs while in hospital and at the time of discharge her hemoglobin was 7.8. Patient was seen by GAS REGULATOR REPAIRER HELPER and started on Megace as well as an endometrial biopsy was done and the result of which is still pending. Patient has noted significant improvement in her vaginal bleeding and is now wanted to be discharged. She can be discharged home because she already has a follow-up planned on 08/25/2017 with gynecology. I will give her a prescription for Megace. She was also diagnosed with endometritis while in house and I will complete a five-day course of Levaquin and metronidazole - Time Spent with Patient Total time spent providing and/or coordinating discharge services: - Discharge Medications Prescriptions: levoFLOXacin [Levaquin] 500 mg PO DAILY 3 Days #3 tablet Megestrol Acetate [Megace] 40 mg PO BID #6 tablet metroNIDAZOLE [Flagyl] 500 mg PO TID 3 Days #9 tablet Home Medications: Omeprazole [PriLOSEC] 40 mg PO DAILY #90 cap 02/04/17 [Rx] Ferrous Sulfate [Iron] 325 mg PO DAILY 08/20/17 [History] Acetaminophen [Tylenol] 650 mg PO Q6HR PRN tablet 08/22/17 [Rx] Docusate [Colace] 100 mg PO BID PRN capsule 08/22/17 [Rx] Megestrol Acetate [Megace] 40 mg PO BID #6 tablet 08/22/17 [Rx] levoFLOXacin [Levaquin] 500 mg PO DAILY 3 Days #3 tablet 08/22/17 [Rx] metroNIDAZOLE [Flagyl] 500 mg PO TID 3 Days #9 tablet 08/22/17 [Rx] Allergies/Adverse Reactions: 3 Allergy/AdvReac Type Severity Reaction Status Date / Time Penicillins Allergy Hives Verified 08/19/16 17:00 Date of admission: 08/20/17 11:35 Primary care physician: PCP NONE Consults: 08/20/17 18:06 Consult to SURVEYOR HELPER [CONS] Routine Consulting Provider: Tia Villalta Reason for Consult: vaginal bleed, HGB of 5.6 Call Completed: Yes - Constitutional Vitals: Temp Pulse Resp BP Pulse Ox 98.4 F 81 15 137/84 97 08/22/17 11:18 08/22/17 11:18 08/22/17 11:18 08/22/17 11:18 08/22/17 11:18 General appearance: Present: cooperative, A&O X 3, pleasant, answers questions appropriately Exam: GENERAL: Alert, no distress, cooperative EYES: PERRLA, EOMI EARS: External ears normal, canals clear OROPHARYNX: Lips, mucosa, and tongue normal. Teeth and gums normal. Oropharynx normal. NECK: No jugulovenous distention, No carotid bruits, Carotid pulse normal contour, Supple LUNGS: Lungs clear to auscultation, Good diaphragmatic excursion CARDIAC: Normal S1 and S2; no rubs, murmurs, or gallops ABDOMEN: Abdomen soft, mild diffuse tenderness without guarding or rigidity, BS normal, No masses or organomegaly EXTREMITIES: Extremities normal, no deformities, edema, clubbing or skin discoloration. Good capillary refill., No ulcers NEURO: Gait normal. Reflexes normal and symmetric. Sensation grossly intact, Cranial nerves II-XII intact PULSES: 2+ radial, 2+ carotid Rest of the exam is non contributory - Patient Status Disposition: Home, Self-Care Condition: Good Functional capacity at discharge: independent ambulation Overall status at discharge: patient is back to baseline - Discharge Instructions Follow Up With: NONE,PCP [Primary Care Provider] - Forms: Work/School Release - Diet and Activity Activity: resume usual activities as tolerated Diet: advance to your usual diet - VTE Documentation of Mechanical Device: Intermittent pneumatic compression device
[2017-08-22] MEDS ORDERED: FLUARIX QUAD 2017-18 36MOS UP/PF 0.5 ML SYRINGE IM ONE (14:12)
== END 2017-08-22 14:47 | disposition home or self-care (01) | DRG 517 ==
LOC: EMEROO 08:16 → SUATTDRO 11:35 → 3ANU 11:35
PROVIDERS: ADMIT Family Medicine; ATTEND Internal Medicine